=== PATIENT | male | born 1930 | race Hispanic/Latino ===

== ENCOUNTER → 2017-06-14 | Outpatient (CLI) | payer OTHER ==
[2017-06-14 15:50] LABS: ANION GAP 103.9 mmol/L (8-16); CREATININE, SERUM 1.51 mg/dL (0.72-1.25); POTASSIUM 3.9 mmol/L (3.5-5.1)
[2017-06-14 15:57] LABS: BASOPHILS % 0.5 % (0.0-1.0); EOSINOPHILS # (AUTO) 0.3 (0.0-0.4); EOSINOPHILS % 6.2 % (0.0-6.0); HEMATOCRIT 22.6 % (38.2-49.6); LYMPHOCYTES # (AUTO) 1.6 (1.0-3.2); LYMPHOCYTES % 39.1 % (18.0-39.1); MEAN CORPUSCULAR HEMOGLOBIN 29.6 pg (28-32); MEAN CORPUSCULAR HGB CONC 30.5 g/dL (31-35); MONOCYTES # (AUTO) 0.4 (0.2-0.8); MONOCYTES % 8.6 % (4.4-11.3); NEUTROPHILS # (AUTO) 1.9 (2.1-6.9); NEUTROPHILS % 45.4 % (38.7-80.0); PLATELET COUNT 111 x10e3/uL (140-360); RED BLOOD COUNT 2.33 x10e6/uL (4.3-5.7); RED CELL DISTRIBUTION WIDTH 17.9 % (11.7-14.4)
[2017-06-14 16:06] LABS: CALCIUM 5.4 mg/dL (8.4-10.2)
[2017-06-14 16:08] LABS: HEMOGLOBIN 6.9 g/dL (14.0-18.0)
== END ==
LOC: NPA 10:00
PROVIDERS: ATTEND Internal Medicine Pulmonary Disease
DX: Z02.89 Encounter for other administrative examinations (principal)
CPT/HCPCS: 36415; 80048; 85025

== ENCOUNTER → 2017-06-27 | Outpatient (CLI) | payer OTHER ==
[2017-06-27 17:26] LABS: BASOPHILS % 0.4 % (0.0-1.0); EOSINOPHILS # (AUTO) 0.4 (0.0-0.4); HEMATOCRIT 32.9 % (38.2-49.6); HEMOGLOBIN 10.9 g/dL (14.0-18.0); LYMPHOCYTES # (AUTO) 0.8 (1.0-3.2); MEAN CORPUSCULAR HEMOGLOBIN 29.7 pg (28-32); MEAN CORPUSCULAR HGB CONC 33.1 g/dL (31-35); MEAN CORPUSCULAR VOLUME 89.6 fL (81-99); MONOCYTES # (AUTO) 0.3 (0.2-0.8); MONOCYTES % 6.3 % (4.4-11.3); NEUTROPHILS # (AUTO) 3.9 (2.1-6.9); NEUTROPHILS % 71.7 % (38.7-80.0); PLATELET COUNT 271 x10e3/uL (140-360); RED BLOOD COUNT 3.67 x10e6/uL (4.3-5.7); RED CELL DISTRIBUTION WIDTH 13.5 % (11.7-14.4)
[2017-06-27 17:36] LABS: ANION GAP 13.1 mmol/L (8-16); BLOOD UREA NITROGEN 19 mg/dL (7-26); BUN/CREATININE RATIO 26 (6-25); CALCIUM 8.8 mg/dL (8.4-10.2); CARBON DIOXIDE 26 mmol/L (22-29); CHLORIDE 104 mmol/L (98-107); CREATININE, SERUM 0.74 mg/dL (0.72-1.25); EST GLOMERULAR FILTRATION RATE > 60 ML/MIN (60-); GLUCOSE 100 mg/dL (74-118); POTASSIUM 3.1 mmol/L (3.5-5.1); SODIUM 140 mmol/L (136-145)
== END ==
LOC: NPA 11:30
PROVIDERS: ATTEND Internal Medicine Pulmonary Disease
DX: Z02.89 Encounter for other administrative examinations (principal)
CPT/HCPCS: 36415; 80048; 85025

== ENCOUNTER → 2017-06-29 | Outpatient (CLI) | payer OTHER ==
[2017-06-29 16:22] LABS: BILIRUBIN,URINE NEGATIVE (NEGATIVE); CLARITY,URINE CLOUDY (CLEAR); COLOR,URINE YELLOW (YELLOW); KETONES,URINE NEGATIVE (NEGATIVE); LEUKOCYTE ESTERASE ,URINE TRACE (NEGATIVE); NITRITE,URINE NEGATIVE (NEGATIVE); PROTEIN,URINE DIPSTICK 1+ (NEGATIVE); URINE UROBILINOGEN 0.2 mg/dL (0.2 - 1)
[2017-06-29 16:23] LABS: AMORPHOUS SEDIMENT,URINE MODERATE (FEW); EPITHELIAL CELLS,URINE RARE /LPF; RBC,URINE 0-5 /HPF (0-5); URIC ACID CRYSTALS,URINE FEW (FEW); WBC,URINE (MAN) 0-5 /HPF (0-5)
== END ==
LOC: NPA 14:55
PROVIDERS: ATTEND Internal Medicine Pulmonary Disease
DX: Z02.89 Encounter for other administrative examinations (principal)
CPT/HCPCS: 81001; 87086

== ENCOUNTER → 2017-06-30 | Outpatient (CLI) | payer OTHER ==
[2017-06-30 17:26] LABS: ANION GAP 13.1 mmol/L (8-16); BLOOD UREA NITROGEN 14 mg/dL (7-26); BUN/CREATININE RATIO 19 (6-25); CALCIUM 8.9 mg/dL (8.4-10.2); CARBON DIOXIDE 29 mmol/L (22-29); CHLORIDE 98 mmol/L (98-107); CREATININE, SERUM 0.73 mg/dL (0.72-1.25); EST GLOMERULAR FILTRATION RATE > 60 ML/MIN (60-); GLUCOSE 121 mg/dL (74-118); POTASSIUM 4.1 mmol/L (3.5-5.1); SODIUM 136 mmol/L (136-145)
== END ==
LOC: NPA 11:30
PROVIDERS: ATTEND Internal Medicine Pulmonary Disease
DX: Z02.89 Encounter for other administrative examinations (principal)
CPT/HCPCS: 36415; 80048

== ENCOUNTER → 2017-09-28 | Outpatient (CLI) | payer MEDICARE ==
--- NOTE | 2017-09-28 12:32 | Diagnostic Imaging Report ---
Examination: Brain MRI without Contrast History: Memory loss. Comparison studies: None. Technique: Precontrast: Hi resolution Sag T1 with coronal and axial reformats. Axial DWI, T2, T2 flair, gradient echo or SWI Intravenous contrast: None. Findings: Structural lesions: No intra-or extra-axial masses. No hematomas. Atrophy: General: Mild bifrontal and biparietal volume loss. Focal: Severe volume loss of the bilateral hippocampi. No mesencephalic, pontine, or cerebellar atrophy. Henderson matter: Cortex:No signal abnormalities. No encephalomalacia. Basal ganglia: No atrophy or signal abnormalities. Thalami: No signal abnormalities. Micro hemorrhages: None. White matter signal intensity: There are confluent areas of T2/FLAIR hyperintensity in the periventricular and subcortical white matter, nonspecific. Subarachnoid spaces: No signal abnormalities. Ventricles: Normal in size and configuration. No hydrocephalus. Hippocampi, fornix and mammillary bodies: Normal in size and symmetric fornices. Mild volume loss of the mammillary bodies. Other: Skull: No bone marrow abnormalities. Vessels: Expected flow voids present in the major arteries and dural sinuses.. Sella: Normal in size. No intra-or suprasellar abnormalities. Cranio-cervical junction: No abnormalities. Patent foramen magnum. No Chiari one malformation. Paranasal sinuses: No T2 hyperintense mucosal thickening. Orbits: Bilateral slitlike lenses. IMPRESSION: 1. 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 2. Mild chronic microvascular ischemic change. Signed by: Dr. Delia Hatch M.D. on 09/28/2017 12:29 PM
== END ==
LOC: MRI 10:04
PROVIDERS: ATTEND Emergency Medicine
DX: R41.3 Other amnesia (principal)
CPT/HCPCS: 70551

== ENCOUNTER 2018-06-20 09:59 | Inpatient (IN) | payer MEDICARE ==
[~2018-06-20] VITALS: Ht 149.9 cm; Wt 59.2 kg
--- OUTSIDE RECORDS SUMMARY | 2018-06-20 10:03 | XMS REPORT ---
Author Author [facility] Organization [facility] Address Unknown Phone Unavailable Care Team Providers Care Rn School Name Role Phone JOSIE VAZQUEZ Unavailable Unavailable Payers Payer Name Policy Type Policy Number Effective Date Expiration Date Problems This patient has no known problems. Allergies, Adverse Reactions, Alerts Allergy Name Allergy Type Status Severity Reaction(s) Onset Date Inactive Date Treating Clinician Comments No Known Allergies DA Active U 2018-05-17 00:00:00 No Known Allergies DA Active U 2017-12-12 00:00:00 Medications This patient has no known medications. Results Test Description Test Time Test Comments Text Results Atomic Results Result Comments MRI BRAIN WO [place] [address] Patient Name: ILIR LAWRENCE MR #: [id number] : 1930 Age/Sex: 87/M Req #: [id number] Adm Physician: Ordered by: JOSIE VAZQUEZ MD Report #: [id number] Location: MRI Room/Bed: Procedure: [id number] MRI/MRI BRAIN WO Exam Date: Exam Time: REPORT STATUS: Signed Examination: Brain MRI without Contrast History: Memory loss. Comparison studies: None. Technique: Precontrast: Hi resolution Sag T1 with coronal and axial reformats. Axial DWI, T2, T2 flair, gradient echo or SWI Intravenous contrast: None. Findings: Structural lesions: No intra-or extra- axial masses. No hematomas. Atrophy: General: Mild bifrontal and biparietal volume loss. Focal: Severe volume loss of the bilateral hippocampi. No mesencephalic, pontine, or cerebellar atrophy. Henderson matter: Cortex:No signal abnormalities. No encephalomalacia. Basal ganglia: No atrophy or signal abnormalities. Thalami: No signal abnormalities. Micro hemorrhages: None. White matter signal intensity: There are confluent areas of T2/FLAIR hyperintensity in the periventricular and subcortical white matter, nonspecific. Subarachnoid spaces: No signal abnormalities. Ventricles: Normal in size and configuration. No hydrocephalus. Hippocampi, fornix and mammillary bodies: Normal in size and symmetric fornices. Mild volume loss of the mammillary bodies. Other: Skull: No bone marrow abnormalities. Vessels: Expected flow voids present in the major arteries and dural sinuses.. Sella: Normal in size. No intra-or suprasellar abnormalities. Cranio-cervical junction: No abnormalities. Patent foramen magnum. No Chiari one malformation. Paranasal sinuses: No T2 hyperintense mucosal thickening. Orbits: Bilateral slitlike lenses. IMPRESSION: 1. 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 2. Mild chronic microvascular ischemic change. Signed by: Dr. Delia Hatch M.D. on 09/28/2017 12:29 PM Dictated By: DELIA DESIR MD [id number] Transcribed By: ARTURO on 09/28/17 1229 COPY TO: JOSIE VAZQUEZ MD
--- OUTSIDE RECORDS SUMMARY | 2018-06-20 10:03 | XMS REPORT | Clinical Summary ---
Author Author [facility] Address Unknown Phone Unavailable Care Team Providers Care General Road Production Manager Name Role Phone Long Mccoy MD PCP Allergies No Known Allergies Medications End Date Status Medication Sig Dispensed Refills Start Date Active metFORMIN (GLUCOPHAGE) Take 500 mg 0 500 mg tablet by mouth 2 (two) times a day with meals. Active lisinopril Take 10 mg by 0 (PRINIVIL,ZESTRIL) 10 mg mouth daily. tablet Active traMADol (ULTRAM) 50 mg TK ONE T PO Q 0 tablet 8 H PRN P WF 8 Active Problems No known active problems Encounters Care Team Description Date Type Specialty Mary Lombardi MD Bilateral hearing loss due to cerumen impaction (Primary Dx); Dementia without behavioral disturbance, unspecified dementia type 09/26/2017 Office Visit Otolaryngology after 06/19/2017 Social History Date Tobacco Use Types Packs/Day Years Used Never Smoker Smokeless Tobacco: Never Used Alcohol Use Drinks/Week oz/Week Comments No Sex Assigned at Date Recorded Not on file Industry Job Start Date Occupation Not on file Not on file Not on file Travel End Travel History Travel Start No recent travel history available. Last Filed Vital Signs Time Taken Vital Sign Reading - Blood Pressure - - Pulse - - Temperature - - Respiratory Rate - - Oxygen Saturation - - Inhaled Oxygen - Concentration 09/26/2017 8:57 AM CDT Weight 59 kg (130 lb) 09/26/2017 8:57 AM CDT Height 149.9 cm (4' 11") 09/26/2017 8:57 AM CDT Body Mass Index 26.26 Plan of Treatment Health Maintenance Due Date Last Done Comments SHINGLES VACCINES (1 of 1980 2) PNEUMOCOCCAL 09/14/1995 POLYSACCHARIDE VACCINE AGE 65 AND OVER PNEUMOCOCCAL-13 09/14/1995 INFLUENZA VACCINE 12/21/2017 Results Not on fileafter 06/19/2017 Insurance Payer Benefit Subscriber ID Type Phone Address Plan / Group [facility] MEDICARE AARP xxxxxxxxx O MEDICARE COMPLETE MCR Advance Directives Patient has advance care planning documents on file. For more information, travis crawford contact: Donald Huynh [address] [place] [address]
[2018-06-20 11:00] LABS: BASOPHILS # (AUTO) 0.1 (0.0-0.1); BASOPHILS % 0.5 % (0.0-1.0); EOSINOPHILS # (AUTO) 0.3 (0.0-0.4); EOSINOPHILS % 2.3 % (0.0-6.0); HEMATOCRIT 34.3 % (38.2-49.6); HEMOGLOBIN 10.8 g/dL (14.0-18.0); LYMPHOCYTES # (AUTO) 1.9 (1.0-3.2); LYMPHOCYTES % 15.6 % (18.0-39.1); MEAN CORPUSCULAR HEMOGLOBIN 29.7 pg (28-32); MEAN CORPUSCULAR HGB CONC 31.5 g/dL (31-35); MEAN CORPUSCULAR VOLUME 94.2 fL (81-99); MONOCYTES # (AUTO) 0.9 (0.2-0.8); MONOCYTES % 7.2 % (4.4-11.3); NEUTROPHILS # (AUTO) 8.8 (2.1-6.9); NEUTROPHILS % 73.9 % (38.7-80.0); PLATELET COUNT 336 x10e3/uL (140-360); RED BLOOD COUNT 3.64 x10e6/uL (4.3-5.7); RED CELL DISTRIBUTION WIDTH 13.3 % (11.7-14.4)
[2018-06-20 11:11] LABS: INR 0.95; PROTHROMBIN TIME 13.6 seconds (11.9-14.5)
[2018-06-20 11:12] LABS: PARTIAL THROMBOPLASTIN TIME 32.4 seconds (23.8-35.5)
[2018-06-20 11:23] LABS: ALANINE AMINOTRANSFERASE 14 IU/L (0-55); ALBUMIN 3.4 g/dL (3.5-5.0); ALBUMIN/GLOBULIN RATIO 0.9 (0.8-2.0); ALKALINE PHOSPHATASE 180 IU/L (40-150); BLOOD UREA NITROGEN 20 mg/dL (7-26); BUN/CREATININE RATIO 23 (6-25); CALCIUM 9.8 mg/dL (8.4-10.2); CARBON DIOXIDE 23 mmol/L (22-29); CHLORIDE 102 mmol/L (98-107); CREATINE KINASE 48 IU/L (30-200); CREATININE, SERUM 0.87 mg/dL (0.72-1.25); EST GLOMERULAR FILTRATION RATE > 60 ML/MIN (60-); GLUCOSE 106 mg/dL (74-118); MAGNESIUM 1.7 MG/DL (1.3-2.1); SODIUM 139 mmol/L (136-145)
[2018-06-20 11:36] LABS: STREPTOCOCCUS GRP A ANTIGEN NEGATIVE (NEGATIVE)
[2018-06-20 11:45] LABS: INFLUENZAE A&B ANTIGEN (RAPID) NEGATIVE (NEGATIVE)
[2018-06-20] MEDS ORDERED: VANCOMYCIN 1GM/NS 250 ML 250 ML IV ONE (11:45)
[2018-06-20 11:47] LABS: CLARITY,URINE CLEAR (CLEAR); COLOR,URINE YELLOW (YELLOW)
--- NOTE | 2018-06-20 11:47 | Diagnostic Imaging Report ---
EXAMINATION: CHEST SINGLE (PORTABLE) INDICATION: Cough. COMPARISON: None FINDINGS: TUBES and LINES: None. LUNGS: Lungs are not well inflated. Low lung volumes which decreases sensitivity and specificity for pathology. Mild perihilar and interstitial opacities on the right. Patchy opacities at the right lung base. PLEURA: No pleural effusion or pneumothorax. Mild nonspecific elevation of the right hemidiaphragm. HEART AND MEDIASTINUM: The cardiomediastinal silhouette is unremarkable. Atherosclerotic calcifications of the aortic arch. BONES AND SOFT TISSUES: No acute bony findings. Extensive degenerative changes of bilateral shoulders, partially visualized. Superior subluxation of the bilateral humeral heads in relation to the glenoids could reflect rotator cuff pathology. UPPER ABDOMEN: No free air under the diaphragm. Air-filled colonic loops are noted. IMPRESSION: Low lung volumes, cannot exclude mild pulmonary interstitial edema. Patchy opacities at the right lung base could represent atelectasis or pneumonia in the appropriate clinical setting. Mild nonspecific elevation of the right hemidiaphragm. Air filled colonic loops in the abdomen, KUB may be considered for further evaluation. Signed by: Dr. Rajat Chatterjee MD on 06/20/2018 11:44 AM
[2018-06-20 11:48] LABS: BILIRUBIN,URINE NEGATIVE (NEGATIVE); KETONES,URINE NEGATIVE (NEGATIVE); LEUKOCYTE ESTERASE ,URINE NEGATIVE (NEGATIVE); NITRITE,URINE NEGATIVE (NEGATIVE); PROTEIN,URINE DIPSTICK NEGATIVE (NEGATIVE); URINE UROBILINOGEN 0.2 mg/dL (0.2 - 1)
[2018-06-20 12:00] LABS: BACTERIA,URINE RARE /HPF; EPITHELIAL CELLS,URINE RARE /LPF
--- NOTE | 2018-06-20 12:11 | Diagnostic Imaging Report ---
LEFT FOOT - 3 Images HISTORY: Second toe, diabetic foot ulcer COMPARISON: None available. FINDINGS: Sensitivity limited by portable technique. Bones: No acute displaced fracture. No aggressive osseous lesion. Small plantar calcaneal and dorsal calcaneal enthesophytes. Joints: Mild scattered degenerative changes. Soft tissues: Nonspecific soft tissue swelling, most notably the great toe and second toe, a small focus of air projects at the interspace between the toes, correlate for the site of the reported ulcer IMPRESSION: No radiographic evidence of osteomyelitis. Signed by: Dr. Shelton Stapleton D.O., M.M.M. on 06/20/2018 12:06 PM
[2018-06-20] MEDS: PIPER-TAZ 3.375 GM 50 ML IV SCH ×3 (12:16→23:48)
--- NOTE | 2018-06-20 12:19 | NUR ---
RT notified of ordered breathing treatment
[2018-06-20] MEDS ORDERED: ALBUTEROL/IPRATROPIUM 3 ML NEB NEB ONE (12:30)
[2018-06-20] MEDS ORDERED: DEXTROSE 50% SYRINGE 50 ML IV PRN (12:45)
[2018-06-20] MEDS: ALBUTEROL SULF 0.083% NEB SOLN 3 ML NEB NEB SCH ×3 (12:45→20:00)
[2018-06-20] MEDS ORDERED: AZITHROMYCIN 500MG/NS 250 ML 250 ML IV SCH (12:45)
[2018-06-20] MEDS: IPRATROPIUM BROMIDE 0.02% 2.5 ML NEB NEB SCH ×2 (13:00→20:00)
--- OUTSIDE RECORDS SUMMARY | 2018-06-20 13:01 | XMS REPORT | Clinical Summary ---
Author Author [facility] Organization [facility] Address Unknown Phone Unavailable Care Team Providers Care Rn Telehealth Name Role Phone Long Mccoy MD PCP [...] ID Type Phone Address Plan / Group [facility] MEDICARE AARP xxxxxxxxx O MEDICARE COMPLETE MCR Advance Directives Patient has advance care planning documents on file. For more information, travis crawford contact: Donald Huynh [address] [place] [address]
[2018-06-20] MEDS: SODIUM CHLORIDE 0.9% 1000ML 1,000 ML IV SCH (13:12)
[2018-06-20] MEDS: AZITHROMYCIN 500MG/NS 250 ML 250 ML IV SCH (14:57)
--- NOTE | 2018-06-20 15:03 | NUR ---
Patient noted to have large BM. No brief applied and patient repositioned. Will continue to monitor patient. Addendum: 06/20/18 at 1503 by ELLY New brief applied*
[2018-06-20] MEDS: INSULIN LISPRO 100 UNIT/1 ML 3ML VIAL SQ SCH ×2 (16:31→21:30)
--- NOTE | 2018-06-20 17:41 | Consultation ---
DATE OF CONSULTATION: June 20, 2018 CHIEF COMPLAINT: Pain with erythema, left foot. HISTORY OF PRESENT ILLNESS: Mr. Mcduffie is a pleasant 87-year-old male, presented to the ED secondary to pain, discomfort, erythema associated to his left foot, particularly the second toe, with erythema progressing proximally. Recently was discharged from nursing facility. Unfortunately he has developed this problem and presented to the ED for evaluation and recommendations. PAST MEDICAL HISTORY: Hypertension, diabetes, hyperlipidemia, CHF, UTI, dementia, anemia, and CKD. FAMILY HISTORY: Noncontributory. SOCIAL HISTORY: Previous tobacco use. No recent alcohol use. No history of drug abuse. REVIEW OF SYSTEMS: Eleven-point review of systems negative with the exception of nonproductive cough and pain associated to his left foot. PHYSICAL EXAM GENERAL: AAO x2, NAD. HEENT: Normocephalic, atraumatic. Anicteric. ABDOMEN: Soft, nontender, nondistended. RESPIRATORY: Symmetrical expansion. No distress. PSYCHIATRIC: Normal affect. EXTREMITIES: There is indeed erythema associated to the left foot, particularly dorsum of the same midfoot and forefoot, with what appears to be an ischemic-like lesion to the second digit of the same dorsally along the interphalangeal joint area of the proximal interphalangeal joint area. No active drainage. No soft tissue crepitus. There is tenderness upon palpation, however. Laboratory findings are pending, x-rays as well. ASSESSMENT: Diabetic patient with what appears to be peripheral arterial disease or ischemic-like changes to the foot, underlying cellulitis as well. PLAN: Recommend vascular workup. Local wound care for the time being and continue antibiotics. Further recommendations to follow, particularly post arterial Dopplers, which will be ordered. Job#: [id number] ANJU
--- NOTE | 2018-06-20 18:30 | NUR ---
PATIENT ARRIVED TO ROOM 208 FROM ER AT THIS TIME. HE IS IN STABLE CONDITION. PATIENT AND FAMILY ORIENTED TO ROOM AND POLICIES. CALL LIGHT WITHIN REACH. BED IN THE LOWEST POSITION. WILL CONTINUE TO MONITOR.
[2018-06-20 18:41] LABS: CREATINE KINASE 40 IU/L (30-200)
--- NOTE | 2018-06-20 19:03 | NUR ---
REPORT GIVEN TO ONCOMING NURSE. PATIENT IS IN STABLE CONDITION. FAMILY AT BEDSIDE. CALL LIGHT WITHIN REACH. BED IN THE LOWEST POSITION.
--- NOTE | 2018-06-20 19:30 | NUR ---
patient received. Patient is resting in bed. Resp even and unlabored. No acute distress noted. Patient denies of any pain or discomfort. family at bed time. call light within reach. instruct to call for assistance. bed alarm on. bed low/locked. continue to monitor closely
[2018-06-20 20:00] VITALS: BP 142/65
[2018-06-20] MEDS ORDERED: VANCOMYCIN 750MG/NS 150ML IVPB 150 ML IV SCH (23:00)
[2018-06-21] VITALS (7 sets, daily range): BP systolic 97–163; BP diastolic 52–97
[2018-06-21] MEDS: ALBUTEROL SULF 0.083% NEB SOLN 3 ML NEB NEB SCH ×7 (00:15→23:12)
[2018-06-21] MEDS: IPRATROPIUM BROMIDE 0.02% 2.5 ML NEB NEB SCH ×5 (00:15→23:12)
[2018-06-21] MEDS: SODIUM CHLORIDE 0.9% 1000ML 1,000 ML IV SCH ×2 (02:15→15:16)
[2018-06-21] MEDS: PIPER-TAZ 3.375 GM 50 ML IV SCH ×3 (05:29→17:31)
--- NOTE | 2018-06-21 06:15 | NUR ---
DR Cao said ok to d/c continuously pulse ox
[2018-06-21] MEDS: VANCOMYCIN 750MG/NS 150ML IVPB 150 ML IV SCH ×2 (06:36→18:00)
[2018-06-21 06:39] LABS: BASOPHILS % 0.4 % (0.0-1.0); EOSINOPHILS # (AUTO) 0.1 (0.0-0.4); EOSINOPHILS % 0.7 % (0.0-6.0); HEMATOCRIT 29.3 % (38.2-49.6); HEMOGLOBIN 9.4 g/dL (14.0-18.0); LYMPHOCYTES # (AUTO) 1.4 (1.0-3.2); LYMPHOCYTES % 12.6 % (18.0-39.1); MEAN CORPUSCULAR HEMOGLOBIN 29.6 pg (28-32); MEAN CORPUSCULAR HGB CONC 32.1 g/dL (31-35); MEAN CORPUSCULAR VOLUME 92.1 fL (81-99); MONOCYTES # (AUTO) 0.7 (0.2-0.8); MONOCYTES % 6.4 % (4.4-11.3); NEUTROPHILS # (AUTO) 8.8 (2.1-6.9); NEUTROPHILS % 79.4 % (38.7-80.0); PLATELET COUNT 311 x10e3/uL (140-360); RED BLOOD COUNT 3.18 x10e6/uL (4.3-5.7); RED CELL DISTRIBUTION WIDTH 13.2 % (11.7-14.4)
[2018-06-21 06:49] LABS: CREATINE KINASE 51 IU/L (30-200)
--- NOTE | 2018-06-21 07:05 | NUR ---
RCD PT AT BED PT IS ALERT AND ORIENTED ASSESSMENT DONE IV PATENT FAMILY AT BED SIDE BED LOW AND LOCKED CALL LIGHT IN REACH
[2018-06-21 07:28] LABS: ALANINE AMINOTRANSFERASE 13 IU/L (0-55); ALBUMIN 2.8 g/dL (3.5-5.0); ALBUMIN/GLOBULIN RATIO 0.8 (0.8-2.0); ALKALINE PHOSPHATASE 140 IU/L (40-150); ANION GAP 15.2 mmol/L (8-16); BLOOD UREA NITROGEN 17 mg/dL (7-26); BUN/CREATININE RATIO 20 (6-25); CALCIUM 8.7 mg/dL (8.4-10.2); CARBON DIOXIDE 22 mmol/L (22-29); CHLORIDE 103 mmol/L (98-107); CREATININE, SERUM 0.84 mg/dL (0.72-1.25); EST GLOMERULAR FILTRATION RATE > 60 ML/MIN (60-); GLUCOSE 64 mg/dL (74-118); POTASSIUM 3.2 mmol/L (3.5-5.1); SODIUM 137 mmol/L (136-145)
[2018-06-21] MEDS: INSULIN LISPRO 100 UNIT/1 ML 3ML VIAL SQ SCH ×4 (07:30→20:54)
[2018-06-21] MEDS: AZITHROMYCIN 500MG/NS 250 ML 250 ML IV SCH (09:00)
[2018-06-21] MEDS: DOCUSATE SODIUM 100 MG CAP PO SCH (09:00)
[2018-06-21] MEDS: SENNOSIDES 8.6 MG TAB PO SCH ×2 (09:00→16:57)
[2018-06-21] MEDS: ASPIRIN 81 MG CHEW TAB PO SCH (09:30)
[2018-06-21] MEDS ORDERED: ATORVASTATIN 20 MG TAB PO SCH (09:30)
[2018-06-21] MEDS: ATORVASTATIN 40 MG TAB PO SCH (10:00)
--- NOTE | 2018-06-21 10:04 | NUR ---
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 PMH: dementia, HTN, HLD, constipation, DM2, BPH, recurrent falls, FTT, EULALIA, dehydration, cervical spine ds s/p laminectomy, DM-neuropathy, constipation, left foot 2nd toe cellulitis, UTI, physical deconditioing. PShx: C4-C7 laminectomy, back, B/L knee Allergies; see emr Fh/SH; no illicits; family present and involved in care; ; no cigs/illicits/etoh MEd;s see MAR ROS: unreliable V/S: rev'd PE: Tired appearing HEET: Pupils round, equal, and reactive to light and accommodation Neck: normal neck supple Chest Lungs sound present on auscultation, decreased at the base, no rales, rhonchi, wheezing Cardiovascular: S1, S2, Abdomen: bowel sound presents x4q, abdomen soft, non-distended Extremities: MCBRIDE, left foot 2nd toe erythema/tenderness and between 1st/2nd toes Skin: Skin warm and dry to touch Neuro: AAOx2 labs/meds; revd A/P: A/P: 87yoM LEft foot 2nd toe infection- r/o osteomyelitis; vasc w-up; abx; sed rate; Left foot 2nd toe DFU Physical deconditioning Malaise/Fatigue - PT DM2- lipid/hba1c HTN meds HLD statin Dementia Memantine Constipation bowel regimen Severe cervical DDD PT Diastolic CHF chr - monitor Urinary retention - Flomax Prop: Pepcid/Heparin Dispo d/w daughter at bedside; MRI to r/o osteomyelitis; cardiovasc consult for vasc w-up. Joaquin Cao MD,PhD.
--- NOTE | 2018-06-21 10:17 | NUR ---
PAGED AND NOTIFIED DR YUNG POTASSIUM LEVEL AND PAIN MEDS
--- NOTE | 2018-06-21 10:18 | NUR ---
ADDENDUM: to H&P Right HAP- on zosyn/vanco and azithromycin. Joaquin Cao MD, PhD.
[2018-06-21] MEDS: ACETAMINOPHEN/CODEINE 300MG - 30MG TAB PO PRN ×2 (10:20→15:11)
[2018-06-21] MEDS ORDERED: POTASSIUM CHLORIDE 20 MEQ TAB CR PO ONE (10:45)
[2018-06-21] MEDS ORDERED: FLOMAX0.4 MG PO (13:30)
[2018-06-21] MEDS ORDERED: ULTRAM50 MG PO (13:30)
[2018-06-21] MEDS ORDERED: DIOVAN160 MG PO (13:30)
[2018-06-21] MEDS ORDERED: TYLENOL325 MG PO (13:30)
[2018-06-21] MEDS ORDERED: TRAZODONE HCL50 MG PO (13:30)
[2018-06-21] MEDS ORDERED: NAMENDA10 MG (13:30)
[2018-06-21] MEDS ORDERED: RISPERIDONE0.5 MG PO (13:30)
[2018-06-21] MEDS ORDERED: SODIUM CHLORIDE1 GM PO (13:30)
[2018-06-21] MEDS ORDERED: FAMOTIDINE20 MG PO (13:30)
--- NOTE | 2018-06-21 13:46 | Consultation ---
DATE OF CONSULTATION: June 21, 2018 CARDIOLOGY CONSULTATION REFERRING PHYSICIAN: Dr. Joaquin Cao. REASON FOR CONSULTATION: Peripheral vascular disease. HISTORY OF PRESENT ILLNESS: Mr. Mcduffie is an 87-year-old man with dementia, diabetes mellitus type 2, hypertension and dyslipidemia, who presents to [facility] for a nonhealing left __2nd toe wound. He is found to have abnormal pedal pulses. Antibiotics have been initiated and Podiatry consulted. He denies any complaints. However, he is confused in relationship to his dementia. REVIEW OF SYSTEMS: A 12-system review negative and limited by memory status. PAST MEDICAL HISTORY: Per chart review. Diabetes, hypertension, dyslipidemia, and some reports of CKD and chronic heart failure unspecified on chart, as well as anemia. However, his creatinine is 0.84 today. He is anemic at 9.4. SOCIAL HISTORY: Negative x3. FAMILY HISTORY: Noncontributory. PHYSICAL EXAMINATION VITAL SIGNS: Temperature 98.7, heart rate 90, blood pressure 140/75, respiratory rate 19, O2 sat 98%. BMI 28.2. GENERAL: No acute distress. Pleasantly confused. NECK: No JVD. No carotid bruits. CARDIOVASCULAR: Regular rate and rhythm. Normal S1 and S2. No S3 or S4. Systolic ejection murmur 1/6. ABDOMEN: Soft and nontender. EXTREMITIES: No edema. Nonpalpable dorsalis pedis and posterior tibial pulses. However, warm extremities. Has left toe ulceration with black discoloration surrounding. CARDIOVASCULAR MEDICATIONS: Reviewed. 1. Vancomycin and Zosyn antibiotics. 2. Lovenox 40 mg subcutaneous daily. STUDIES: Reviewed. Sodium 137, potassium 3.2, chloride 103, bicarbonate 22, BUN 17, creatinine 0.84, glucose 64. White blood cells 11, hemoglobin 9.4, platelets 311. INR 0.95. AST 11, ALT 13, alk phos 140. ASSESSMENT: Suspected peripheral vascular disease by clinical grounds in a patient with diabetes mellitus, hypertension, dyslipidemia and a nonhealing wound to left __1st toe in the setting of dementia and behavioral disturbances. RECOMMENDATIONS: Arterial Doppler was ordered to better assess level of disease. Will likely warrant angiography. Creatinine currently at 0.8. He is anemic. Anemia workup is advised. Initiate aspirin low-dose 81 mg daily and monitor for any signs of overt bleeding. Start statin and have initiated discussions with patient and the family members regarding possible angiography and intervention later this week. Patient is tentatively posted for Tuesday a.m. Job#: [id number] GUEVARA
[2018-06-21] MEDS: ENOXAPARIN SOD INJ 40 MG/0.4 ML SYR SC SCH (16:57)
--- NOTE | 2018-06-21 19:00 | NUR ---
PT RESTING ON BED BED SIDE REPORT GIVEN TO ONCOMING NURSE
[2018-06-22] VITALS (10 sets, daily range): BP systolic 114–146; BP diastolic 56–69
[2018-06-22] MEDS: PIPER-TAZ 3.375 GM 50 ML IV SCH ×4 (00:18→18:00)
[2018-06-22] MEDS: ALBUTEROL SULF 0.083% NEB SOLN 3 ML NEB NEB SCH ×6 (02:50→23:25)
[2018-06-22] MEDS: SODIUM CHLORIDE 0.9% 1000ML 1,000 ML IV SCH (05:35)
[2018-06-22] MEDS: VANCOMYCIN 750MG/NS 150ML IVPB 150 ML IV SCH ×2 (06:27→18:00)
[2018-06-22] MEDS: IPRATROPIUM BROMIDE 0.02% 2.5 ML NEB NEB SCH ×3 (07:00→19:15)
--- NOTE | 2018-06-22 07:00 | NUR ---
RCD PT AT BED PT IS ALERT AND CONFUSED ASSESSMENT DONE IV PATENT PT RESTING ON BED NO SIGNS OF ANY DISTRESS NOTED FAMILY AT BED SIDE BED LOW AND LOCKED CALL LIGHT IN REACH
--- NOTE | 2018-06-22 07:11 | NUR ---
REPORT GIVEN TO ONCOMING NURSE,WALKING ROUNDS MADE.PT RESTING IN BED WITH NO S/S OF DISTRESS.
[2018-06-22] MEDS: INSULIN LISPRO 100 UNIT/1 ML 3ML VIAL SQ SCH ×4 (07:30→21:00)
[2018-06-22] MEDS: SENNOSIDES 8.6 MG TAB PO SCH ×2 (09:00→17:00)
[2018-06-22] MEDS: AZITHROMYCIN 500MG/NS 250 ML 250 ML IV SCH (09:00)
[2018-06-22] MEDS: ASPIRIN 81 MG CHEW TAB PO SCH (09:00)
[2018-06-22] MEDS: DOCUSATE SODIUM 100 MG CAP PO SCH (09:00)
[2018-06-22] MEDS: ATORVASTATIN 40 MG TAB PO SCH (09:00)
[2018-06-22] MEDS: RISPERIDONE 0.5 MG TAB PO SCH (10:15)
[2018-06-22] MEDS: TRAMADOL HCL 50 MG TAB PO SCH (10:15)
[2018-06-22] MEDS: MEMANTINE 10 MG TAB PO SCH (10:15)
[2018-06-22] MEDS: FAMOTIDINE 20 MG TAB PO SCH (11:00)
--- NOTE | 2018-06-22 11:18 | NUR ---
WOUND CARE CONSULTATION - INITIAL EVALUATION Patient admitted from [facility] with UTI and Cellulitis of Left Foot 2nd Toe. - Dr. Sammy To DPM on case for foot wound management. -WBC10.03 -HGB9.4 -HCT29.3 -NEUT%29.4 -ALB2.8 -HbA1C - Results Pending -X-Ray- Left Foot - No evidence of OM -Lower Ext. US - Report Pending. - IV ABX - Vancomycin. - Rafael Score 11 - Max assist OOB to Wheel Chair - Full Assist to turn - Alternating Pressure Air Mattress - WC Consulted for Left Foot Wounds. Patient Visit: - Patient Thai speaking with son at bedside - Noted LLE with rubor more pronounced toward 2nd toe. Dorsal aspect of toe presents with annular ulcer with 100% necrosis. - Tender to touch. - Absent Pedal pulses - Foot Cool to touch - No hair growth bilateral legs. - Angiogram pending. - Left Gluteal - Healing/ Absorbing Blister 100% Closed and maturing. IMPRESSION: 1. Left Foot 5th Met Head - DTI w/PVD - Present On Admission(POA). 2. Left Foot Lateral Heel - DTI w/PVD - POA. 3. Left Foot 2nd Toe -US, w/PVD - POA. RECOMMENDATION: Conservative Treatment while establishing vascular status and allow area to demarcate post angiogram. 1. Left Foot 5th Met Head - DTI w/PVD - Present on Admission -[place] with Betadine and Wrap Foot with Bolstered 4x4 Gauze and Light Kerlix Wrap Daily. 2. Left Foot Lateral Heel - DTI w/PVD - POA -[place] with Betadine and Wrap Foot with Bolstered 4x4 Gauze and Light Kerlix Wrap Daily. 3. Left Foot 2nd Toe -US, w/PVD - POA -Betadine Moistened Gauze and Wrap Foot with Bolstered 4x4 Gauze and Light Kerlix Wrap Daily. 4. Left Gluteal - Blister/ Closed- POA - Wash Juwan Gluteals with Mild Soap and Water PRN Soiling. - Apply Calazime Cream BID and PRN Soiling. 5. Heel Protectors while in bed. 6. Continue Alternating Pressure Air Mattress. 7. Turn and Reposition every 2 Hours. 8. Sacral Area - Allevyn Foam Sacrum Daily 9. Wheel Chair Cushion when Out of Bed. Thank you for consulting with Wound Care. Addendum: 06/22/18 at 1134 by Fermin Mcfarlane RN Amended: Links added. Addendum: 06/22/18 at 1137 by Fermin Mcfarlane RN HX: dementia, HTN, HLD, constipation, DM2, BPH, recurrent falls, FTT, EULALIA, dehydration, laminectomy, constipation, left foot 2nd toe cellulitis, UTI, physical deconditioning.
--- NOTE | 2018-06-22 12:00 | NUR ---
ACCORDING TO MRI REQUEST PAGED AND NOTIFIED DR YUNG REGARDING PAIN MEDS FOR MRI GOT THE ORDER GIVE 20 MTS BEFORE THE PROCEDURE
[2018-06-22] MEDS ORDERED: HYDROMORPHONE 1MG/1ML INJ IV STA (12:29)
[2018-06-22] MEDS ORDERED: HYDROMORPHONE 2MG/ML 2 MG/ML ML IV ONE (12:45)
[2018-06-22] MEDS ORDERED: SODIUM CHLORIDE 0.9% 1000ML 1,000 ML IV SCH ×2 (15:41)
--- NOTE | 2018-06-22 16:08 | Progress Note ---
DATE: June 22, 2018 CARDIOLOGY PROGRESS NOTE SUBJECTIVE: No new complaints. Discussed angiography and possible intervention with the patient and family members. OBJECTIVE VITAL SIGNS: Temperature 97.4, heart rate 103, respiratory rate 19, blood pressure 134/59, O2 sat 95% on room air. GENERAL: In no acute distress. Alert. NECK: No JVD. CHEST: Clear to auscultation. CARDIOVASCULAR: Regular rate and rhythm. Normal S1 and S2. ABDOMEN: Soft, nontender. EXTREMITIES: No edema. Abnormal pedal pulses at dorsalis pedis with left 2nd toe ulceration and black discoloration of surrounding tissue. CARDIOVASCULAR MEDICATIONS: Reviewed. 1. Zosyn and vancomycin. 2. Atorvastatin 40 mg daily. 3. Aspirin 81 mg daily. 4. Azithromycin. 5. Lovenox 40 mg subcutaneous daily. STUDIES: Reviewed. White blood cells 11, hemoglobin 9.4, platelets 311. That is from 06/21. Glucose today 179. ASSESSMENT 1. Peripheral vascular disease suggested by Doppler ultrasound, concerning for femoral popliteal disease. 2. Diabetes mellitus. 3. Hypertension. 4. Dyslipidemia. 5. Nonhealing left 2nd toe wound/critical limb ischemia. 6. Dementia with behavioral disturbances. RECOMMENDATIONS 1. Agree with antibiotic. 2. Foot care per Podiatry. 3. Monitor renal function in the periprocedural period given prior reports of chronic kidney disease per electronic medical record. 4. Angiography and possible endovascular intervention scheduled for tomorrow. Indications, alternatives, risks and benefits discussed with patient and family members, who agree to proceed. Job#: [id number] GUEVARA
[2018-06-22] MEDS: ENOXAPARIN SOD INJ 40 MG/0.4 ML SYR SC SCH (17:00)
--- NOTE | 2018-06-22 17:00 | NUR ---
AFTER BED SIDE SWALLOW EVAL THEY RECOMMENDED NPO EXCEPT MEDS CRUSHED AND MIX WIT APPLE SAUCE AND MODIFIED BARIUM SWALLOW PAGED AND NOTIFIED DR YUNG GOT THE ORDERS
--- NOTE | 2018-06-22 17:30 | NUR ---
PT GOING FOR PROCEDURE ON TOMORROW CONSENT SIGNED NPO AFTER MIDNIGHT
[2018-06-22] MEDS: ACETAMINOPHEN/CODEINE 300MG - 30MG TAB PO PRN (18:20)
--- NOTE | 2018-06-22 19:13 | NUR ---
REPORT GIVEN TO ONCOMING NURSE,WALKING ROUNDS MADE.PT RESTING IN BED WITH NO S/S OF DISTRESS.
--- NOTE | 2018-06-22 23:56 | NUR ---
IM- Progress Note O/N; no events ROS: unreliable V/S: rev'd PE: Tired appearing HEET: Pupils round, equal, and reactive to light and accommodation Neck: normal neck supple Chest Lungs sound present on auscultation, decreased at the base, no rales, rhonchi, wheezing Cardiovascular: S1, S2, Abdomen: bowel sound presents x4q, abdomen soft, non-distended Extremities: MCBRIDE, left foot 2nd toe erythema/tenderness and between 1st/2nd toes Skin: Skin warm and dry to touch Neuro: AAOx2 labs/meds; revd A/P: A/P: 87yoM LEft foot 2nd toe infection- r/o osteomyelitis; vasc w-up; abx; sed rate; Left foot 2nd toe DFU Physical deconditioning Malaise/Fatigue - PT DM2- lipid/hba1c HTN meds HLD statin Dementia Memantine Constipation bowel regimen Severe cervical DDD PT Diastolic CHF chr - monitor Urinary retention - Flomax HAP right- zosyn/vanco Prop: Pepcid/Heparin Dispo d/w daughter at bedside; MRI to r/o osteomyelitis; cardiovasc consult for vasc w-up. 06/22 w-up anemia; angio pending; MRI pending; Joaquin Cao MD,PhD.
[2018-06-23] VITALS (7 sets, daily range): BP systolic 129–177; BP diastolic 65–81
[2018-06-23] MEDS: PIPER-TAZ 3.375 GM 50 ML IV SCH ×4 (00:30→17:27)
[2018-06-23] MEDS: IPRATROPIUM BROMIDE 0.02% 2.5 ML NEB NEB SCH ×4 (03:30→19:10)
[2018-06-23] MEDS: ALBUTEROL SULF 0.083% NEB SOLN 3 ML NEB NEB SCH ×6 (03:30→23:35)
[2018-06-23 06:19] LABS: BASOPHILS % 0.5 % (0.0-1.0); EOSINOPHILS # (AUTO) 0.6 (0.0-0.4); HEMATOCRIT 26.4 % (38.2-49.6); HEMOGLOBIN 8.4 g/dL (14.0-18.0); LYMPHOCYTES # (AUTO) 1.7 (1.0-3.2); LYMPHOCYTES % 19.8 % (18.0-39.1); MEAN CORPUSCULAR HGB CONC 31.8 g/dL (31-35); MONOCYTES # (AUTO) 0.7 (0.2-0.8); MONOCYTES % 8.1 % (4.4-11.3); NEUTROPHILS # (AUTO) 5.6 (2.1-6.9); NEUTROPHILS % 64.3 % (38.7-80.0); PLATELET COUNT 309 x10e3/uL (140-360); RED CELL DISTRIBUTION WIDTH 13.5 % (11.7-14.4)
[2018-06-23] MEDS: VANCOMYCIN 750MG/NS 150ML IVPB 150 ML IV SCH ×2 (06:28→17:27)
--- NOTE | 2018-06-23 06:33 | NUR ---
IM- Progress Note O/N; no events ROS: unreliable V/S: rev'd PE: Tired appearing HEET: Pupils round, equal, and reactive to light and accommodation Neck: normal neck supple Chest Lungs sound present on auscultation, decreased at the base, no rales, rhonchi, wheezing Cardiovascular: S1, S2, Abdomen: bowel sound presents x4q, abdomen soft, non-distended Extremities: MCBRIDE, left foot 2nd toe erythema/tenderness and between 1st/2nd toes Skin: Skin warm and dry to touch Neuro: AAOx2 labs/meds; revd A/P: A/P: 87yoM LEft foot 2nd toe infection- r/o osteomyelitis; vasc w-up; abx; sed rate; Left foot 2nd toe DFU Physical deconditioning Malaise/Fatigue - PT DM2- lipid/hba1c HTN meds HLD statin Dementia Memantine Constipation bowel regimen Severe cervical DDD PT Diastolic CHF chr - monitor Urinary retention - Flomax HAP right- zosyn/vanco Prop: Pepcid/Heparin Dispo d/w daughter at bedside; MRI to r/o osteomyelitis; cardiovasc consult for vasc w-up. 06/22 w-up anemia; angio pending; MRI pending; 06/23 leukocytosis resolved; sed rate 95. f/u BMP. Joaquin Cao MD,PhD.
[2018-06-23 06:41] LABS: ALANINE AMINOTRANSFERASE 7 IU/L (0-55); ALBUMIN 2.5 g/dL (3.5-5.0); ALBUMIN/GLOBULIN RATIO 0.7 (0.8-2.0); ALKALINE PHOSPHATASE 107 IU/L (40-150); ANION GAP 12.6 mmol/L (8-16); BLOOD UREA NITROGEN 8 mg/dL (7-26); BUN/CREATININE RATIO 10 (6-25); CALCIUM 8.5 mg/dL (8.4-10.2); CARBON DIOXIDE 23 mmol/L (22-29); CHLORIDE 107 mmol/L (98-107); CREATININE, SERUM 0.79 mg/dL (0.72-1.25); EST GLOMERULAR FILTRATION RATE > 60 ML/MIN (60-); GLUCOSE 115 mg/dL (74-118); POTASSIUM 3.6 mmol/L (3.5-5.1); SODIUM 139 mmol/L (136-145)
--- NOTE | 2018-06-23 07:07 | NUR ---
Addendum: Sepsis- cont abx; leukocytosis resolving; Joaquin Cao MD, PhD.
--- NOTE | 2018-06-23 07:29 | NUR ---
REPORT GIVEN TO ONCOMING NURSE,WALKING ROUNDS MADE.PT RESTING IN BED WITH NO S/S OF DISTRESS.
[2018-06-23] MEDS: FAMOTIDINE 20 MG TAB PO SCH (07:30)
[2018-06-23] MEDS: INSULIN LISPRO 100 UNIT/1 ML 3ML VIAL SQ SCH ×4 (07:30→21:14)
--- NOTE | 2018-06-23 07:30 | NUR ---
The pt. is in process of going to medical lab specialist.
[2018-06-23] MEDS ORDERED: SODIUM CHLORIDE 0.9% 1000ML 1,000 ML ONE (07:38)
[2018-06-23] MEDS ORDERED: LIDOCAINE HCL 1% LOCAL INJ 20 ML VIAL ONE (07:38)
[2018-06-23] MEDS ORDERED: IOPAMIDOL 300MG/ML 100 ML INFUS..BTL IV ONE (07:38)
[2018-06-23] MEDS ORDERED: HEPARIN SOD/SOD CHLORIDE 2,000 ML ONE (07:38)
[2018-06-23] MEDS ORDERED: MIDAZOLAM HCL 2 MG/2 ML VIAL ONE (07:53)
[2018-06-23] MEDS ORDERED: FENTANYL CITRATE/PF 100MCG/2 ML INJ ONE (07:54)
[2018-06-23] MEDS ORDERED: HEPARIN SOD (PORCINE) 1000 UNIT/ML 30ML ONE (08:04)
[2018-06-23] MEDS: DOCUSATE SODIUM 100 MG CAP PO SCH (09:00)
[2018-06-23] MEDS: MEMANTINE 10 MG TAB PO SCH (09:00)
[2018-06-23] MEDS: TRAMADOL HCL 50 MG TAB PO SCH (09:00)
[2018-06-23] MEDS: SENNOSIDES 8.6 MG TAB PO SCH ×2 (09:00→17:27)
[2018-06-23] MEDS: TAMSULOSIN HCL 0.4 MG CAP PO SCH (09:00)
[2018-06-23] MEDS: AZITHROMYCIN 500MG/NS 250 ML 250 ML IV SCH (09:00)
[2018-06-23] MEDS: RISPERIDONE 0.5 MG TAB PO SCH (09:00)
[2018-06-23] MEDS: ATORVASTATIN 40 MG TAB PO SCH (09:00)
[2018-06-23] MEDS ORDERED: CLOPIDOGREL BISULFATE 75 MG TAB ONE ×2 (09:05→09:48)
[2018-06-23] MEDS ORDERED: ASPIRIN 325 MG TAB ONE (09:06)
[2018-06-23] MEDS: SODIUM CHLORIDE 0.9% 1000ML 1,000 ML IV SCH ×2 (09:55→20:54)
--- NOTE | 2018-06-23 09:55 | NUR ---
Report received from the rn labor delivery and the pt. was returned to the unit via bed. He is awake alert and oriented times 3 speaks [place] only and the daughter translates. The groin is soft and no bleeding noted. The pulses are palpated with doppler. The pt. is to remain flat in bed with leg straight for 6 hrs. Morning meds held until the pt. is able to be elevate due to swallowing difficulty.
--- NOTE | 2018-06-23 10:30 | NUR ---
ST Note: Order for modified barium swallow study received. Had tentatively planned to complete MBS with radiology at 11:15. However, pt returned from procedure and cannot sit up until at least 3:15. Working on arrangements for MBS to be completed this PM.
--- NOTE | 2018-06-23 10:41 | Progress Note ---
DATE: June 23, 2018 CARDIOLOGY PROGRESS NOTE SUBJECTIVE: Confused. No other complaints. Status post left femoral popliteal drug-eluting balloon angioplasty and left TP trunk and posterior tibial artery [employer] with significant improvement in flow and left plantar arch filling and digital filling perfusion on final angiography. PHYSICAL EXAMINATION VITALS: Temperature 98.9, heart rate 97, blood pressure 129/70, respiratory rate 17, O2 sat 97%. BMI 28.2. GENERAL: In no acute distress. Alert. NECK: No JVD. CHEST: Clear to auscultation. CARDIOVASCULAR: Regular rate and rhythm. Normal S1 and S2. ABDOMEN: Soft and nontender. EXTREMITIES: No edema. Left 2nd toe ulceration. CARDIOVASCULAR MEDICATIONS: Reviewed. 1. Aspirin 81 mg daily. 2. Clopidogrel 75 mg daily. 3. Atorvastatin 40 mg p.o. at night. 4. 0.4 mg daily. 5. Lovenox 40 mg subcutaneous daily. STUDIES: Reviewed. Creatinine is 0.7. Hemoglobin 8.4. White blood cells 8.6 and platelets 309,000. INR 0.9. ASSESSMENT 1. Peripheral vascular disease: Status post left femoral popliteal drug-eluting percutaneous transluminal angioplasty and left TP trunk percutaneous transluminal angioplasty and perfusion. 2. Anemia. 3. Dementia. 4. Hypertension. 5. Dyslipidemia. 6. Critical limb ischemia. 7. Ulcer to left 2nd toe. RECOMMENDATIONS: Continue current cardiovascular medications. Continue foot care. Job#: [id number] POONAM
--- NOTE | 2018-06-23 11:38 | NUR ---
Pt undergoing dialysis upon arrival. PT will continue to follow-up this afternoon. Addendum: 06/23/18 at 1321 by Kath Guerra PT Entered note in error. Disregard.
--- NOTE | 2018-06-23 13:19 | NUR ---
ST note: Communicated with pt/family and YINKA Cesar. MBS to be completed later today.
[2018-06-23] MEDS: ENOXAPARIN SOD INJ 40 MG/0.4 ML SYR SC SCH (17:27)
--- NOTE | 2018-06-23 17:36 | NUR ---
MBS is scheduled to be performed around 1999 as the pt. was maintained on bedrest until 1544 and the daytime therapist had to leave.
--- NOTE | 2018-06-23 19:22 | NUR ---
Report to the oncoming nurse.
--- NOTE | 2018-06-23 21:30 | NUR ---
Spoke with radiologist regarding MBS scheduled at 1999 stated they cannot do it until Tuesday because their is no Doctor to read the result. Speech therapist will do bedside and recommended to raised patient head during meals and to have mechanical soft diet.
[2018-06-24] MEDS: PIPER-TAZ 3.375 GM 50 ML IV SCH ×4 (00:23→18:53)
[2018-06-24 00:34] VITALS: BP 178/82
[2018-06-24] MEDS: IPRATROPIUM BROMIDE 0.02% 2.5 ML NEB NEB SCH ×5 (01:00→23:27)
--- NOTE | 2018-06-24 01:00 | NUR ---
Blood Pressure rechecked 154/72 mmhg.
[2018-06-24 01:09] VITALS: BP 154/72
--- NOTE | 2018-06-24 02:51 | Operative Report ---
DATE OF PROCEDURE: June 23, 2018 PERIPHERAL ANGIOGRAPHY AND INTERVENTION PROCEDURE INDICATION: Critical limb ischemia with gangrenous ulceration of second left toe and abnormal Doppler ultrasound. PROCEDURES PERFORMED 1. Abdominal aortogram. 2. Selective lower extremity angiography, bilateral. 3. Left superficial femoral artery and popliteal artery drug-eluting balloon angioplasty. 4. Left tibioperoneal trunk and peroneal artery angioplasty, percutaneous transluminal angioplasty. 5. Attempted and aborted left anterior tibial artery percutaneous transluminal angioplasty. 6. Right common femoral artery 6-Albanian Angio-Seal closure. 7. Ultrasound-guided access. 8. Third-order catheter placement from right common femoral artery to left common femoral artery. 9. Additional third-order catheter placement from right common femoral artery to left popliteal artery for better visualization of below the knee vessels that optimally visualized on initial selective left lower extremity angiography. ESTIMATED BLOOD LOSS: Less than 15 mL. PROCEDURE COMPLICATIONS: None. PROCEDURE SUMMARY: After consent was obtained, the patient was prepped and draped in a sterile fashion. The right common femoral artery site was locally infiltrated with 2% lidocaine. Access was obtained and a 6-Albanian sheath was placed. All catheters were railed into the respective positions. An Omni Flush catheter was initially positioned in the abdominal aorta and angiography revealed patent renal arteries and less than 30% stenosis of the infrarenal aorta and iliac vessels bilaterally. The common femoral and profunda femoris had mild disease, less than 30% stenosis. The right SFA had 70% distal stenosis. The right anterior tibial artery was 100% occluded. The right peroneal artery was 100% occluded. The posterior tibial artery was patent on the right lower extremity. The left lower extremity had 70% mid stenosis and 90% distal stenosis and the left popliteal had 90% stenosis and left TP trunk had 80% stenosis. The left PT artery had 70% to 90% tandem lesions. The left anterior tibial was 100% occluded, mid to distal. The left peroneal artery was 100% occluded, mid to distal. Heparin was used to maintain ACT over 250. Aspirin 325 mg and Plavix 600 mg were given for preload. Of note, patient's confusion and agitation made it a complex case and knee immobilizer was used to assist in maintaining left lower extremity position for completion of intervention. Advantage wire was used to advance a Seeker catheter to distal and position and a Roadrunner wire was then used to cross the areas of critical stenosis and exchange to wire positioned in the posterior tibial artery. The posterior tibial artery as well as the left TP trunk were intervened with a 2.5 x 220 Ultraverse balloon with less than 10% residual stenosis across the left TP trunk and left posterior tibial artery. Attention was then directed to the SFA and left popliteal artery, which were treated initially with pre-dilatation with VascuTrak 3.5 x 150 followed by a 4.0 x 150 and then drug-eluting balloon 4.0 x 220 and 5.0 x 220 Lutonix drug-eluting balloon across the full extent of the areas of stenosis of the left SFA and left popliteal artery. Final angiography revealed less than 10% residual stenosis across the left SFA, left popliteal, left TP trunk, and left posterior tibial artery with re-establishment of linear flow via patent posterior tibial artery down to the left plantar arch, which reconstitutes and gives rise to arteries. There is distal faint filling of the left anterior tibial artery at the end of the procedure filling retrograde from the posterior tibial artery. The proximal segment of the left anterior tibial has collaterals arising from the proximal calf, attempted to cross via antegrade approach where we met with inability to cross into the intraluminal space given anatomy. Left pedal retrograde anterior tibial artery approach to be considered at a later date if necessary; however, given the filling of the plantar arch from posterior tibial artery, significant improvement in severe lesions and proximal outflow region of SFA, popliteal segments and TP trunk, likelihood of healing is improved following this procedure and we will assess response. CONCLUSION: Left SFA, left popliteal drug-eluting balloon, SAND TESTER, left TP trunk, and left posterior tibial SAND TESTER. RECOMMENDATIONS: Aspirin and Plavix, bed rest, and assess healing. Monitor for progression of PAD-associated ischemic events to each of bilateral lower extremities given PAD noted to both legs. Job#: [id number] MARS
[2018-06-24] MEDS: ALBUTEROL SULF 0.083% NEB SOLN 3 ML NEB NEB SCH ×5 (03:00→23:00)
[2018-06-24] MEDS: SODIUM CHLORIDE 0.9% 1000ML 1,000 ML IV SCH ×2 (05:55→18:51)
[2018-06-24 05:59] LABS: BASOPHILS % 0.4 % (0.0-1.0); EOSINOPHILS # (AUTO) 0.5 (0.0-0.4); EOSINOPHILS % 4.7 % (0.0-6.0); HEMATOCRIT 26.2 % (38.2-49.6); HEMOGLOBIN 8.9 g/dL (14.0-18.0); LYMPHOCYTES % 19.5 % (18.0-39.1); MEAN CORPUSCULAR HEMOGLOBIN 29.9 pg (28-32); MEAN CORPUSCULAR VOLUME 87.9 fL (81-99); MONOCYTES # (AUTO) 0.6 (0.2-0.8); MONOCYTES % 6.4 % (4.4-11.3); NEUTROPHILS # (AUTO) 6.9 (2.1-6.9); NEUTROPHILS % 68.7 % (38.7-80.0); PLATELET COUNT 318 x10e3/uL (140-360); RED BLOOD COUNT 2.98 x10e6/uL (4.3-5.7); RED CELL DISTRIBUTION WIDTH 13.4 % (11.7-14.4)
[2018-06-24 06:02] VITALS: BP 178/92
[2018-06-24] MEDS: VANCOMYCIN 750MG/NS 150ML IVPB 150 ML IV SCH ×2 (06:12→18:29)
[2018-06-24 06:16] LABS: ANION GAP 14.5 mmol/L (8-16); BLOOD UREA NITROGEN 9 mg/dL (7-26); BUN/CREATININE RATIO 11 (6-25); CALCIUM 8.5 mg/dL (8.4-10.2); CARBON DIOXIDE 22 mmol/L (22-29); CHLORIDE 106 mmol/L (98-107); EST GLOMERULAR FILTRATION RATE > 60 ML/MIN (60-); GLUCOSE 96 mg/dL (74-118); POTASSIUM 3.5 mmol/L (3.5-5.1); SODIUM 139 mmol/L (136-145)
--- NOTE | 2018-06-24 07:12 | NUR ---
PT ALERT RESP EVEN AND UNLABORED AT THIS TIME, NO DISTRESS NOTED , PT ABLE TO MAKE NEEDS KNOWN, NO C/O PAIN AT THIS TIME.
[2018-06-24] MEDS: INSULIN LISPRO 100 UNIT/1 ML 3ML VIAL SQ SCH ×4 (07:30→21:00)
[2018-06-24] MEDS ORDERED: ASPIRIN 325 MG TAB PO SCH (09:00)
[2018-06-24] MEDS: DOCUSATE SODIUM 100 MG CAP PO SCH (09:43)
[2018-06-24] MEDS: RISPERIDONE 0.5 MG TAB PO SCH (09:43)
[2018-06-24] MEDS: TAMSULOSIN HCL 0.4 MG CAP PO SCH (09:43)
[2018-06-24] MEDS: ASPIRIN 81 MG ENTERIC COATED PO SCH (09:43)
[2018-06-24] MEDS: AZITHROMYCIN 500MG/NS 250 ML 250 ML IV SCH (09:43)
[2018-06-24] MEDS: FAMOTIDINE 20 MG TAB PO SCH (09:43)
[2018-06-24] MEDS: MEMANTINE 10 MG TAB PO SCH (09:43)
[2018-06-24] MEDS: CLOPIDOGREL BISULFATE 75 MG TAB PO SCH (09:43)
[2018-06-24] MEDS: SENNOSIDES 8.6 MG TAB PO SCH ×2 (09:43→18:51)
[2018-06-24] MEDS: ATORVASTATIN 40 MG TAB PO SCH (09:43)
[2018-06-24] MEDS: TRAMADOL HCL 50 MG TAB PO SCH (09:44)
--- NOTE | 2018-06-24 10:22 | NUR ---
IM- Progress Note O/N; no events ROS: unreliable V/S: rev'd PE: Tired appearing HEET: Pupils round, equal, and reactive to light and accommodation Neck: normal neck supple Chest Lungs sound present on auscultation, decreased at the base, no rales, rhonchi, wheezing Cardiovascular: S1, S2, Abdomen: bowel sound presents x4q, abdomen soft, non-distended Extremities: MCBRIDE, left foot 2nd toe erythema/tenderness and between 1st/2nd toes Skin: Skin warm and dry to touch Neuro: AAOx2 labs/meds; revd A/P: A/P: 87yoM LEft foot 2nd toe infection- r/o osteomyelitis; vasc w-up; abx; sed rate; Left foot 2nd toe DFU Sepsis - POA Physical deconditioning Malaise/Fatigue - PT DM2- lipid/hba1c HTN meds HLD statin Dementia Memantine Constipation bowel regimen Severe cervical DDD PT Diastolic CHF chr - monitor Urinary retention - Flomax HAP right- zosyn/vanco Prop: Pepcid/Heparin Dispo d/w daughter at bedside; MRI to r/o osteomyelitis; cardiovasc consult for vasc w-up. 06/22 w-up anemia; angio pending; MRI pending; 06/23 leukocytosis resolved; sed rate 95. f/u BMP. 2/2 s/p Left fem pop THEO. control BP. Joaquin Cao MD,PhD.
[2018-06-24 12:03] VITALS: BP 145/68
[2018-06-24 16:41] VITALS: BP 147/87
[2018-06-24] MEDS: ENOXAPARIN SOD INJ 40 MG/0.4 ML SYR SC SCH (18:51)
[2018-06-24] MEDS: METOPROLOL TARTRATE 25 MG TAB PO SCH ×2 (18:52→18:54)
--- NOTE | 2018-06-24 19:17 | Progress Note ---
DATE: June 24, 2018 CARDIOLOGY PROGRESS NOTE SUBJECTIVE: No new complaints. PHYSICAL EXAMINATION VITALS: Temperature of 99.5, heart rate 76, blood pressure 145/68, respiratory rate 20, O2 sat 97%. GENERAL: In no acute distress. Alert. NECK: No JVD. CHEST: Clear to auscultation. CARDIOVASCULAR: Regular rate and rhythm. Normal S1 and S2. ABDOMEN: Soft and nontender. EXTREMITIES: No edema with left 2nd toe ulceration and black discoloration. CARDIOVASCULAR MEDICATIONS: Reviewed. Atorvastatin, clopidogrel, aspirin, vancomycin, Zosyn, tamsulosin, metoprolol, Lovenox for prophylaxis. STUDIES: Reviewed. Potassium 3.5, creatinine is 0.8. Hemoglobin 8.9, white blood cells 10, platelets 318. INR 0.9. ASSESSMENT 1. Peripheral vascular disease, status post left femoral popliteal and posterior tibial artery revascularization via endovascular approach. 2. Dementia. 3. Hypertension. 4. Dyslipidemia. RECOMMENDATIONS: Continue current cardiovascular medications and monitor foot wound healing. Antibiotics and foot care per primary surgeon and podiatry. Job#: [id number] LUIS
--- NOTE | 2018-06-24 19:48 | NUR ---
REPORT GIVEN TO ONCOMING NURSE, FOR CONTINUED CARE.
--- NOTE | 2018-06-24 20:15 | NUR ---
Patient received lying in bed. AAO x 2. No signs of pain or respiratory distress. Patient assisted to a more comfortable position. Fall precautions maintained. Call light within reach.
[2018-06-24 22:05] VITALS: BP 167/86
[2018-06-25] VITALS (7 sets, daily range): BP systolic 119–159; BP diastolic 59–87
[2018-06-25] MEDS: PIPER-TAZ 3.375 GM 50 ML IV SCH ×4 (00:39→18:37)
[2018-06-25] MEDS: SODIUM CHLORIDE 0.9% 1000ML 1,000 ML IV SCH ×3 (01:55→21:55)
[2018-06-25] MEDS: ALBUTEROL SULF 0.083% NEB SOLN 3 ML NEB NEB SCH ×6 (03:00→23:25)
[2018-06-25] MEDS: IPRATROPIUM BROMIDE 0.02% 2.5 ML NEB NEB SCH ×3 (04:25→19:45)
[2018-06-25] MEDS: VANCOMYCIN 750MG/NS 150ML IVPB 150 ML IV SCH ×2 (06:00→18:00)
--- NOTE | 2018-06-25 06:25 | NUR ---
Wound dressing performed as per MD's order on left foot . Patient not very cooperative about the rest of the wound treatment.
--- NOTE | 2018-06-25 07:05 | NUR ---
pt asleep resp even and unlabored at this time, pt easily aroused, pt has family member at bedside, pt no distress noted, call light in reach.
[2018-06-25] MEDS: INSULIN LISPRO 100 UNIT/1 ML 3ML VIAL SQ SCH ×4 (07:30→20:57)
[2018-06-25] MEDS: AZITHROMYCIN 500MG/NS 250 ML 250 ML IV SCH (09:56)
[2018-06-25] MEDS: ATORVASTATIN 40 MG TAB PO SCH (10:11)
[2018-06-25] MEDS: RISPERIDONE 0.5 MG TAB PO SCH (10:11)
[2018-06-25] MEDS: ASPIRIN 81 MG ENTERIC COATED PO SCH (10:11)
[2018-06-25] MEDS: CLOPIDOGREL BISULFATE 75 MG TAB PO SCH (10:11)
[2018-06-25] MEDS: SENNOSIDES 8.6 MG TAB PO SCH ×2 (10:11→18:37)
[2018-06-25] MEDS: DOCUSATE SODIUM 100 MG CAP PO SCH (10:11)
[2018-06-25] MEDS: MEMANTINE 10 MG TAB PO SCH (10:11)
[2018-06-25] MEDS: TRAMADOL HCL 50 MG TAB PO SCH (10:12)
[2018-06-25] MEDS: FAMOTIDINE 20 MG TAB PO SCH (10:13)
[2018-06-25] MEDS: TAMSULOSIN HCL 0.4 MG CAP PO SCH (10:13)
[2018-06-25] MEDS: METOPROLOL TARTRATE 25 MG TAB PO SCH ×2 (10:16→18:37)
[2018-06-25] MEDS: ENOXAPARIN SOD INJ 40 MG/0.4 ML SYR SC SCH (18:37)
--- NOTE | 2018-06-25 19:19 | NUR ---
Received patient asleep in bed. Arousable to tactile stimuli. No acute distress noted. Fall precautions in place. Call light within reach.
--- NOTE | 2018-06-25 19:25 | NUR ---
REPORT GIVEN TO ONCOMING NURSE, FOR CONTINUED CARE.
--- NOTE | 2018-06-25 22:16 | Progress Note ---
DATE: June 25, 2018 CARDIOLOGY PROGRESS NOTE SUBJECTIVE: No complaints. PHYSICAL EXAMINATION VITAL SIGNS: Temperature 99.4, heart rate 91, blood pressure 130/60, respiratory rate 18, and O2 sat 93%. GENERAL: No acute distress. Alert. NECK: No JVD. CHEST: Clear to auscultation. CARDIOVASCULAR: Regular rate and rhythm. Normal S1 and S2. ABDOMEN: Soft and nontender. EXTREMITIES: No edema with left 2nd toe ulceration. CARDIOVASCULAR MEDICATIONS: Reviewed. further therapy statin 1. Metoprolol tartrate mg twice a day. 2. Aspirin 81 mg daily. 3. Clopidogrel 75 mg daily. 4 . Atorvastatin 40 mg daily. STUDIES: Reviewed. Creatinine is 0.8. Hemoglobin is 8.9, stable. White blood cells 10, platelets 318,000. ASSESSMENT 1. Peripheral vascular disease, status post left femoral popliteal and posterior tibial revascularization via endovascular approach. 2. Dementia. 3. Hypertension. 4. Dyslipidemia. 5. Anemia. RECOMMENDATIONS 1. Continue current cardiovascular medications and monitor H and H. 2. Continue wound care. 3. Antibiotics. Job#: [id number]
[2018-06-26] VITALS (9 sets, daily range): BP systolic 132–157; BP diastolic 64–88
--- NOTE | 2018-06-26 00:18 | NUR ---
Patient appeared diaphoretic. Blood sugar checked and recorded as 29. Dextrose 50% given stat. Blood sugar re-checked after 15 minutes and recorded as 237. Patient awake and alert.
[2018-06-26] MEDS: PIPER-TAZ 3.375 GM 50 ML IV SCH ×4 (01:00→17:21)
[2018-06-26] MEDS: ALBUTEROL SULF 0.083% NEB SOLN 3 ML NEB NEB SCH ×6 (02:30→23:00)
[2018-06-26] MEDS: IPRATROPIUM BROMIDE 0.02% 2.5 ML NEB NEB SCH ×4 (02:30→19:00)
[2018-06-26] MEDS: VANCOMYCIN 750MG/NS 150ML IVPB 150 ML IV SCH ×2 (06:40→18:56)
--- NOTE | 2018-06-26 07:00 | NUR ---
Walking rounds done and report received. Patient is awake and alert x2. Bed in lowest position, locked , bed alarm on and call taylor within reach.
--- NOTE | 2018-06-26 07:25 | NUR ---
Walking rounds done. Shift report given to oncoming nurse.
[2018-06-26] MEDS: INSULIN LISPRO 100 UNIT/1 ML 3ML VIAL SQ SCH ×4 (07:30→21:15)
[2018-06-26] MEDS: SODIUM CHLORIDE 0.9% 1000ML 1,000 ML IV SCH ×2 (07:55→17:22)
[2018-06-26] MEDS: TRAMADOL HCL 50 MG TAB PO SCH (09:00)
--- NOTE | 2018-06-26 09:20 | NUR ---
MBS in progress. Patient tolerating well
[2018-06-26] MEDS: MEMANTINE 10 MG TAB PO SCH (09:28)
[2018-06-26] MEDS: METOPROLOL TARTRATE 25 MG TAB PO SCH ×2 (09:28→17:21)
[2018-06-26] MEDS: CLOPIDOGREL BISULFATE 75 MG TAB PO SCH (09:28)
[2018-06-26] MEDS: ASPIRIN 81 MG ENTERIC COATED PO SCH (09:28)
[2018-06-26] MEDS: DOCUSATE SODIUM 100 MG CAP PO SCH (09:28)
[2018-06-26] MEDS: AZITHROMYCIN 500MG/NS 250 ML 250 ML IV SCH (09:28)
[2018-06-26] MEDS: TAMSULOSIN HCL 0.4 MG CAP PO SCH (09:28)
[2018-06-26] MEDS: ATORVASTATIN 40 MG TAB PO SCH (09:28)
[2018-06-26] MEDS: FAMOTIDINE 20 MG TAB PO SCH (09:28)
[2018-06-26] MEDS: SENNOSIDES 8.6 MG TAB PO SCH ×2 (09:29→17:00)
[2018-06-26] MEDS: RISPERIDONE 0.5 MG TAB PO SCH (09:29)
--- NOTE | 2018-06-26 11:21 | NUR ---
IM- Progress Note O/N; no events ROS: unreliable V/S: rev'd PE: Tired appearing HEET: Pupils round, equal, and reactive to light and accommodation Neck: normal neck supple Chest Lungs sound present on auscultation, decreased at the base, no rales, rhonchi, wheezing Cardiovascular: S1, S2, Abdomen: bowel sound presents x4q, abdomen soft, non-distended Extremities: MCBRIDE, left foot 2nd toe erythema/tenderness and between 1st/2nd toes Skin: Skin warm and dry to touch Neuro: AAOx2 labs/meds; revd A/P: A/P: 87yoM LEft foot 2nd toe infection- r/o osteomyelitis; vasc w-up; abx; sed rate; Left foot 2nd toe DFU Sepsis - POA Physical deconditioning Malaise/Fatigue - PT DM2- lipid/hba1c HTN meds HLD statin Dementia Memantine Constipation bowel regimen Severe cervical DDD PT Diastolic CHF chr - monitor Urinary retention - Flomax HAP right- zosyn/vanco Prop: Pepcid/Heparin Dispo d/w daughter at bedside; MRI to r/o osteomyelitis; cardiovasc consult for vasc w-up. 06/22 w-up anemia; angio pending; MRI pending; 06/23 leukocytosis resolved; sed rate 95. f/u BMP. 2/2 s/p Left fem pop THEO. control BP. 2/3 vancomycin therapeutic; cont iv abx; 2/4 f/u MBS; check lab;s Joaquin Cao MD,PhD.
[2018-06-26 12:16] LABS: BASOPHILS # (AUTO) 0.1 (0.0-0.1); BASOPHILS % 0.4 % (0.0-1.0); EOSINOPHILS # (AUTO) 0.7 (0.0-0.4); EOSINOPHILS % 5.8 % (0.0-6.0); HEMATOCRIT 26.3 % (38.2-49.6); HEMOGLOBIN 8.3 g/dL (14.0-18.0); LYMPHOCYTES # (AUTO) 1.8 (1.0-3.2); LYMPHOCYTES % 15.9 % (18.0-39.1); MEAN CORPUSCULAR HEMOGLOBIN 28.7 pg (28-32); MEAN CORPUSCULAR HGB CONC 31.6 g/dL (31-35); MONOCYTES # (AUTO) 0.6 (0.2-0.8); MONOCYTES % 5.3 % (4.4-11.3); NEUTROPHILS # (AUTO) 8.2 (2.1-6.9); NEUTROPHILS % 71.9 % (38.7-80.0); PLATELET COUNT 357 x10e3/uL (140-360); RED BLOOD COUNT 2.89 x10e6/uL (4.3-5.7); RED CELL DISTRIBUTION WIDTH 13.4 % (11.7-14.4)
[2018-06-26 12:40] LABS: ANION GAP 12.3 mmol/L (8-16); BLOOD UREA NITROGEN 11 mg/dL (7-26); BUN/CREATININE RATIO 14 (6-25); CALCIUM 8.3 mg/dL (8.4-10.2); CARBON DIOXIDE 22 mmol/L (22-29); CHLORIDE 108 mmol/L (98-107); CREATININE, SERUM 0.79 mg/dL (0.72-1.25); EST GLOMERULAR FILTRATION RATE > 60 ML/MIN (60-); GLUCOSE 197 mg/dL (74-118); POTASSIUM 3.3 mmol/L (3.5-5.1); SODIUM 139 mmol/L (136-145)
--- NOTE | 2018-06-26 13:29 | Diagnostic Imaging Report ---
PROCEDURE: X-RAY MODIFIED BARIUM SWALLOW COMPARISON: None. INDICATION: Aspiration. Radiation Details: Fluoroscopy time: 1.3 minutes Cumulative air kerma: 12.4 mGy DISCUSSION: Fluoroscopic examination was performed in conjunction with speech pathology during swallowing a variety of thin and thick liquid consistencies. Provided images demonstrate no evidence of penetration or aspiration. Minimal vallecular residue is noted. CONCLUSION: Modified barium swallow demonstrating no evidence of penetration or aspiration. Please refer to the speech pathology report for further details including reported suspected aspiration post procedurally after exam termination. Signed by: Dr. Rajat Chatterjee MD on 06/26/2018 1:26 PM
--- NOTE | 2018-06-26 14:00 | NUR ---
Daughter at the bedside. Patient without any complaints. Call taylor within reach.
[2018-06-26] MEDS: ENOXAPARIN SOD INJ 40 MG/0.4 ML SYR SC SCH (17:21)
--- NOTE | 2018-06-26 17:48 | NUR ---
Nutrition Screen Note RD Recommendation for Physician: -Rec adding ADA to cardiac diet (HbA1c at 7.2%) Plan of Care: RD following, monitoring for tolerance and adequacy Nutrition reason for involvement: LOS Primary Diagnose(s): Peripheral vascular disease, status post left femoral popliteal and posterior tibial revascularization via endovascular approach. PMH: Hypertension, diabetes, hyperlipidemia, CHF, UTI, dementia, anemia, and CKD. Ht: 59in Wt: 130.5lb BMI: 26.4kg/m2 IBW: 100lb RD Assessment: (06/26) Chart reviewed. Labs and meds reviewed. 87yo M, who was admitted for L foot pain. Pt was discussed during rounds. Modified barium swallow demonstrated no evidence of penetration or aspiration; no diet modification needed. Wound care on the case. Currently on abx. Visited pt in the room. Pt unable to provide hx due to dementia. No family presented on bedside. RN recorded 75-100% meal intake since admission. Will continue to monitor and follow. Current Diet: cardiac diet Malnutrition Evaluation (06/26/2018) The patient does not meet criteria for a specified degree of malnutrition at this time. Will re-evaluate at follow-up as appropriate. Diet Education Needs Assessment: Diet education not indicated. Nutrition Care Level: low Signed: Mary Kim, MS, RD, LD
--- NOTE | 2018-06-26 20:32 | Progress Note ---
DATE: June 26, 2018 CARDIOLOGY PROGRESS NOTE SUBJECTIVE: Pleasantly confused, no complaints. PHYSICAL EXAMINATION: VITAL SIGNS: Temperature 97.3, heart rate 91, blood pressure 145/79, respiratory rate 18, O2 sat 99%. GENERAL: In no acute distress, alert. NECK: No JVD. CHEST: Clear to auscultation. CARDIOVASCULAR: Regular rate and rhythm. Normal S1 and S2. ABDOMEN: Soft, nontender. EXTREMITIES: No edema. Left second toe ulcer. CARDIOVASCULAR MEDICATIONS: Reviewed. Atorvastatin, clopidogrel, metoprolol, Zosyn, vancomycin, azithromycin, Lovenox 40 mg subcutaneous daily, and aspirin 81 mg daily. STUDIES: Creatinine is 0.7. Hemoglobin 8.3, white blood cells 11.3. INR is 0.9. ASSESSMENT 1. Peripheral vascular disease, status post revascularization of left femoropopliteal and posterior tibial arteries. 2. Dementia. 3. Diabetes mellitus. 4. Pneumonia. RECOMMENDATIONS 1. Continue current cardiovascular medications. 2. Monitor blood pressure. If continues elevated, may up-titrate . Job#: [id number]
[2018-06-26] MEDS: ACETAMINOPHEN/CODEINE 300MG - 30MG TAB PO PRN (22:57)
[2018-06-27] VITALS: BP 166/75
[2018-06-27] MEDS: PIPER-TAZ 3.375 GM 50 ML IV SCH ×2 (00:36→05:47)
[2018-06-27] MEDS: IPRATROPIUM BROMIDE 0.02% 2.5 ML NEB NEB SCH ×2 (01:00→07:00)
[2018-06-27] MEDS: ALBUTEROL SULF 0.083% NEB SOLN 3 ML NEB NEB SCH ×3 (03:00→11:00)
--- NOTE | 2018-06-27 05:00 | NUR ---
PT REFUSED LABS TO BE DRAWN WITH THE SUBSTANCE ABUSE NURSE AND THIS NURSE AT THIS TIME.SUBSTANCE ABUSE NURSE STATED THAT SHE IS GOING TO COME BACK AT LATER TIME AND TRY AGAIN.
[2018-06-27] MEDS: VANCOMYCIN 750MG/NS 150ML IVPB 150 ML IV SCH (06:20)
[2018-06-27 06:21] VITALS: BP 128/83
[2018-06-27] MEDS ORDERED: SENOKOT8.6 MG PO (06:47)
[2018-06-27] MEDS ORDERED: COLACE100 M1 PO (06:47)
[2018-06-27] MEDS ORDERED: LOPRESSOR25 MG PO (06:47)
[2018-06-27] MEDS ORDERED: CIPRO500 MG PO (06:47)
[2018-06-27] MEDS ORDERED: MINOCYCLINE HCL50 MG PO (06:47)
[2018-06-27] MEDS ORDERED: ASPIRIN EC81 MG PO (06:49)
[2018-06-27] MEDS ORDERED: PLAVIX75 MG PO (06:49)
[2018-06-27] MEDS ORDERED: Atorvastatin PO (06:49)
--- NOTE | 2018-06-27 06:55 | NUR ---
Walking rounds done and report received. Patient is resting in bed in NAD without any complaints voiced at this time. Bed in lowest position, locked, bed alarm on and call taylor within reach.
[2018-06-27] MEDS: INSULIN LISPRO 100 UNIT/1 ML 3ML VIAL SQ SCH ×2 (07:30→11:30)
[2018-06-27 07:41] VITALS: BP 160/72
[2018-06-27 08:08] LABS: BASOPHILS # (AUTO) 0.1 (0.0-0.1); BASOPHILS % 0.7 % (0.0-1.0); EOSINOPHILS # (AUTO) 0.9 (0.0-0.4); EOSINOPHILS % 8.6 % (0.0-6.0); HEMATOCRIT 28.7 % (38.2-49.6); HEMOGLOBIN 9.2 g/dL (14.0-18.0); LYMPHOCYTES # (AUTO) 2.7 (1.0-3.2); LYMPHOCYTES % 26.7 % (18.0-39.1); MEAN CORPUSCULAR HGB CONC 32.1 g/dL (31-35); MEAN CORPUSCULAR VOLUME 90.5 fL (81-99); MONOCYTES # (AUTO) 0.6 (0.2-0.8); MONOCYTES % 6.2 % (4.4-11.3); NEUTROPHILS # (AUTO) 5.7 (2.1-6.9); NEUTROPHILS % 57.2 % (38.7-80.0); PLATELET COUNT 396 x10e3/uL (140-360); RED BLOOD COUNT 3.17 x10e6/uL (4.3-5.7); RED CELL DISTRIBUTION WIDTH 13.6 % (11.7-14.4)
[2018-06-27 08:22] LABS: ANION GAP 13.6 mmol/L (8-16); BLOOD UREA NITROGEN 11 mg/dL (7-26); BUN/CREATININE RATIO 13 (6-25); CALCIUM 8.7 mg/dL (8.4-10.2); CARBON DIOXIDE 22 mmol/L (22-29); CHLORIDE 107 mmol/L (98-107); CREATININE, SERUM 0.85 mg/dL (0.72-1.25); EST GLOMERULAR FILTRATION RATE > 60 ML/MIN (60-); GLUCOSE 104 mg/dL (74-118); POTASSIUM 3.6 mmol/L (3.5-5.1); SODIUM 139 mmol/L (136-145)
[2018-06-27] MEDS: FAMOTIDINE 20 MG TAB PO SCH (08:30)
[2018-06-27] MEDS: TAMSULOSIN HCL 0.4 MG CAP PO SCH (09:00)
[2018-06-27] MEDS: ATORVASTATIN 40 MG TAB PO SCH (09:00)
[2018-06-27] MEDS: TRAMADOL HCL 50 MG TAB PO SCH (09:00)
[2018-06-27] MEDS: RISPERIDONE 0.5 MG TAB PO SCH (09:00)
[2018-06-27] MEDS: CLOPIDOGREL BISULFATE 75 MG TAB PO SCH (09:00)
[2018-06-27] MEDS: DOCUSATE SODIUM 100 MG CAP PO SCH (09:00)
[2018-06-27] MEDS: MEMANTINE 10 MG TAB PO SCH (09:00)
[2018-06-27] MEDS: ASPIRIN 81 MG ENTERIC COATED PO SCH (09:00)
[2018-06-27] MEDS: AZITHROMYCIN 500MG/NS 250 ML 250 ML IV SCH (09:00)
[2018-06-27] MEDS: METOPROLOL TARTRATE 25 MG TAB PO SCH (09:00)
[2018-06-27] MEDS: SENNOSIDES 8.6 MG TAB PO SCH (09:00)
--- NOTE | 2018-06-27 09:34 | NUR ---
CASE MANAGEMENT INITIAL ASSESSMENT Check Clerk to bedside to discuss plan of care with patient/family. CM/SW role and care transitions discussed. Anticipated discharge plan discussed along with duration of care. CM/SW discussed patients right to make decisions in care. CM/SW work hours given. Spoke with pt's daughter at bedside. Patient lives: with daughter Clarisa Admit/Transfer: thru ED Hospital/ER visits since last admit: was at [facility] 1.5 months ago POA/Emergency contact: Clarisa Wang [phone] Current/Previous Home Health: did have home health previously; does not remember name PCP/Follow-up Care: Dr. Mccoy; pt's daughter stated that they follow up closely with PCP and she will make an appointment for her dad within 7 days of discharge. Current/Previous DME: walker, wheelchair. mainly uses wheelchair. Medications (referring to index hospitalization or the first time you were in the hospital) a. Were changes made in your medications when you were in the hospital on [date of index hospitalization]? no b. Did you understand the changes? n/a c. Were you able to obtain your new medications right away? n/a d. Were you able to take your medications like the doctor wanted you to? yes e. Did the hospital give you an accurate, easy to understand list of medications when you left? n/a Scale of 1-10 how comfortable does patient feel with disease management in outpatient setting: Other Services: none Employment Status: retired Areas of Concerns: weakness, foot ulcers, pneumonia Referral Needs: needs home health Education Needs: medical management IMM/[place] given and signed (if applicable): IMM letter delivered and explained. Pt's daughter verbalized understanding. Signed copy placed in chart. Copy to pt's daughter. Goal for discharge: Home with home health CM/SW left business card at the bedside with contact information. Name and number was also written on the patients whiteboard. Patient verbalized understanding of discussion. CM will follow-up with ongoing discharge and transition of care needs. Received order for home health. Pt's daughter stated she did not have preference for a company as long as they take pt's insurance. Signed choice letter placed in chart. Copy to pt's daughter.
--- NOTE | 2018-06-27 10:50 | NUR ---
ST NOTE: Attempted to see pt for follow up with swallow function after MBS, pt given pain medicaiton and not alert enough to participate, will reattempt at later time. Pt to d/c today. Handoff to YINKA Carmona
--- NOTE | 2018-06-27 11:00 | NUR ---
Dr. Lopez cleared patient for discharge. Patient will need to follow up in 4 weeks in the office.
[2018-06-27 11:51] VITALS: BP 140/68
[2018-06-27 11:56] VITALS: BP 140/68
--- NOTE | 2018-06-27 13:00 | NUR ---
Dr Christianson making rounds and patient may go home from podiatry stand point.
--- NOTE | 2018-06-27 14:15 | NUR ---
Patient discharged home with daughter and home health set up by skilled nursing case manager.
--- NOTE | 2018-06-27 14:39 | NUR ---
CM called and spoke to Aidee at [facility] and verified that they are accepting pt's insurance. Informed Aidee that CM will send referral and that pt is discharging today. She said they will be able to see pt within the 24-48 hr timeframe. Referral was faxed. [address] [address] P [phone] F [phone]
--- NOTE | 2018-06-27 22:27 | Progress Note ---
DATE: June 27, 2018 CARDIOLOGY PROGRESS NOTE SUBJECTIVE: Pleasantly confused, no complaints. PHYSICAL EXAMINATION VITAL SIGNS: Temperature 98.1, heart rate 77, blood pressure 160/72, respiratory rate 19, and O2 sat 96%. GENERAL: In no acute distress, alert. NECK: No JVD. No carotid bruits. CHEST: Clear to auscultation. CARDIOVASCULAR: Regular rate and rhythm. Normal S1 and S2. No S3 or S4. ABDOMEN: Soft. EXTREMITIES: No edema. Left second toe ulcer. CARDIOVASCULAR MEDICATIONS: Reviewed. Metoprolol, aspirin, clopidogrel, atorvastatin, Zosyn, and vancomycin. STUDIES: Reviewed. Creatinine is 0.9. Hemoglobin 9.2, platelets 396,000, and white blood cells 10. Normal transaminases. ASSESSMENT 1. Peripheral vascular disease, status post left femoropopliteal and left posterior tibial revascularization. 2. Diabetes mellitus. 3. Hypertension. 4. Dementia. 5. Dyslipidemia. RECOMMENDATIONS 1. Continue current cardiovascular medications. 2. Monitor wound healing. Depending on results and as needed, can consider staged left anterior tibial retrograde pedal revascularization if healing is suboptimal. However, full plantar arch observed posterior tibial flow post revascularization. Job#: [id number] CF
--- NOTE | 2018-07-07 07:07 | NUR ---
Discharge summary: A/P: 87yoM LEft foot 2nd toe infection- r/o osteomyelitis; vasc w-up; abx; sed rate; Left foot 2nd toe DFU Sepsis - POA Physical deconditioning Malaise/Fatigue - PT DM2- lipid/hba1c HTN meds HLD statin Dementia Memantine Constipation bowel regimen Severe cervical DDD PT Diastolic CHF chr - monitor Urinary retention - Flomax HAP right- zosyn/vanco Prop: Pepcid/Heparin Dispo d/w daughter at bedside; MRI to r/o osteomyelitis; cardiovasc consult for vasc w-up. 06/22 w-up anemia; angio pending; MRI pending; 06/23 leukocytosis resolved; sed rate 95. f/u BMP. 2/2 s/p Left fem pop THEO. control BP. 2/3 vancomycin therapeutic; cont iv abx; 2/4 f/u MBS; check lab;s d/c home conditon; stable f/u pcp 1 week cardiology 2 weeks d/c time>35mins Joaquin Cao MD,PhD.
== END 2018-06-27 14:01 | disposition home health service (06) | DRG 853 ==
LOC: ER 09:59 → ERHOLD 12:01 → MED/SURG2 18:32
PROVIDERS: ADMIT Internal Medicine; ATTEND Internal Medicine
PROC: 047L3Z1 Dilation of Left Femoral Artery using Drug-Coated Balloon, Percutaneous Approach (ICD-10-PCS; principal; 2018-06-26)
PROC: 047S3Z1 Dilation of Left Posterior Tibial Artery using Drug-Coated Balloon, Percutaneous Approach (ICD-10-PCS; 2018-06-26)
PROC: 047N3Z1 Dilation of Left Popliteal Artery using Drug-Coated Balloon, Percutaneous Approach (ICD-10-PCS; 2018-06-26)
PROC: [UNRECOGNIZED PROCEDURE] (2018-06-26)
PROC: 047N3ZZ Dilation of Left Popliteal Artery, Percutaneous Approach (ICD-10-PCS; 2018-06-26)
PROC: 047Q3ZZ Dilation of Left Anterior Tibial Artery, Percutaneous Approach (ICD-10-PCS; 2018-06-26)
PROC: B41D1ZZ Fluoroscopy of Aorta and Bilateral Lower Extremity Arteries using Low Osmolar Contrast (ICD-10-PCS; 2018-06-26)
DX: A41.9 Sepsis, unspecified organism (principal); J18.9 Pneumonia, unspecified organism; M86.8X7 Other osteomyelitis, ankle and foot; I50.32 Chronic diastolic (congestive) heart failure; F03.91 Unspecified dementia, unspecified severity, with behavioral disturbance; L03.116 Cellulitis of left lower limb; E11.69 Type 2 diabetes mellitus with other specified complication; Z79.4 Long term (current) use of insulin; E78.5 Hyperlipidemia, unspecified; I11.0 Hypertensive heart disease with heart failure; M50.30 Other cervical disc degeneration, unspecified cervical region; R33.9 Retention of urine, unspecified; K59.00 Constipation, unspecified; F03.90 Unspecified dementia, unspecified severity, without behavioral disturbance, psychotic disturbance, mood disturbance, and anxiety; E11.621 Type 2 diabetes mellitus with foot ulcer; L97.529 Non-pressure chronic ulcer of other part of left foot with unspecified severity; E11.51 Type 2 diabetes mellitus with diabetic peripheral angiopathy without gangrene; Y95 Nosocomial condition; I73.9 Peripheral vascular disease, unspecified; D64.9 Anemia, unspecified
CPT/HCPCS: 36247; 36415; 37224; 37232; 71045; 74230; 75625; 75716; 80048; 80053; 80061; 80202; 81001; 82550; 82553; 82948; 83036; 83518; 83605; 83735; 84484; 85025; 85610; 85651; 85730; 87040; 87070; 87086; 87400; 93925; 94640; 96365; 97139; 99284; C1725; C1769; C1887; J0456; J1644; J1650; J2001; J2250; J2543; J3370; J7030; J7799; Q9967

== ENCOUNTER → 2019-05-07 | Outpatient (CLI) | payer MEDICARE ==
[~2019-05-07] MED LIST: ASPIRIN EC81 MG PO; Atorvastatin PO; CIPRO500 MG PO; COLACE100 M1 PO; DIOVAN160 MG PO; FAMOTIDINE20 MG PO; FLOMAX0.4 MG PO; LOPRESSOR25 MG PO; MINOCYCLINE HCL50 MG PO; NAMENDA10 MG; PLAVIX75 MG PO; RISPERIDONE0.5 MG PO; SENOKOT8.6 MG PO; SODIUM CHLORIDE1 GM PO; TRAZODONE HCL50 MG PO; TYLENOL325 MG PO; ULTRAM50 MG PO
--- NOTE | 2019-05-07 12:58 | Diagnostic Imaging Report ---
MRI BRAIN WO HISTORY: Memory loss, Alzheimer's disease COMPARISON: MRI of the brain 09/28/2017 TECHNIQUE: Axial T2, multiplanar 3-D T1, axial T2/FLAIR, axial gradient echo (or susceptibility weighted), and axial diffusion weighted MR images of the brain were obtained without contrast. Motion artifacts obscure some details. DISCUSSION: Scalp/bone marrow: Unremarkable. Brain sulci: Prominent, especially along the mesial temporal lobes. Ventricles: Compensatory dilatation. Extra-axial spaces: No masses or fluid collections. Parenchyma: Scattered T2/FLAIR hyperintense foci throughout the supratentorial white matter are likely chronic microvascular ischemic changes. Otherwise, no mass, hemorrhage, or acute vascular insults. Vessels: Normal flow voids in major arteries and veins. Sellar/Suprasellar region: No abnormalities. 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 IMPRESSION: 1. No acute intracranial abnormalities. No significant change compared to MRI of the brain dated 09/28/2017. 2. Mild supratentorial chronic microvascular ischemic change. 3. Generalized cerebral volume loss with slight predominance along the bilateral mesial temporal lobes. Signed by: Dr. Blake Rajan M.D. on 05/07/2019 12:54 PM
== END ==
LOC: MRI 10:33
PROVIDERS: ATTEND Emergency Medicine
DX: G30.1 Alzheimer's disease with late onset (principal)
CPT/HCPCS: 70551

== ENCOUNTER 2019-10-09 12:45 | Inpatient (IN) | payer MEDICARE, OTHER ==
[~2019-10-09] VITALS: Ht 154.9 cm; Wt 54.6 kg
--- OUTSIDE RECORDS SUMMARY | 2019-10-09 12:48 | XMS REPORT | Clinical Summary ---
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
--- OUTSIDE RECORDS SUMMARY | 2019-10-09 12:49 | XMS REPORT ---
Author Author [facility] t Organization [facility] Address [address] [place] [id number] Phone Unavailable Care Team Providers Care Advertising Copy Writer Name Role Phone JOSIE VAZQUEZ MD PCP JOSIE VAZQUEZ Attphys Unavailable AGA HOPSON Attphyrodger Unavailable JOAQUIN YUNG Attphys Unavailable AGA HOPSON Admphys Unavailable JOAQUIN YUNG Admjerod Unavailable Payers Payer Name Policy Type Policy Number Effective Date Expiration Date Rodger jaime [facility] Medicare Complete [id number] 2017 00:00:00 [facility] Medicare Complete [id number] 2017 00:00:00 [facility] Problems Condition Name Condition Details Condition Category Status Onset Date Resolution Date Last Treatment Date Treating Clinician Comments Source Cellulitis Cellulitis Problem Active [facility] Dementia Dementia Problem Active [facility] 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 [facility] Pneumonia Pneumonia Problem Active [facility] Allergies, Adverse Reactions, Alerts Allergy Name Allergy Type Status Severity Reaction(s) Onset Date Inacti ve Date Treating Clinician Comments Source No Known Allergies DA Active U 2018-05-17 00:00:00 [facility] No Known Allergies DA Active U 2017-12-12 00:00:00 [facility] Social History Social Habit Start Date Stop Date Quantity Comments Source Sex Assigned At Adolfo Huynh Alcohol intake 2017-09-26 00:00:00 2017-09-26 00:00:00 Current non-drinker of alcohol (finding) Donald Huynh Smoking Status Start Date Stop Date Source Never smoker Donald Kimis elie Medications Ordered Medication Name Filled Medication Name Start Date Stop Da te Current Medication? Ordering Clinician Indication Dosage Frequency Signature (SIG) Comments Components Source Aspirin (Aspirin Ec) 81 Mg Tablet. Aspirin (Aspirin Ec) 81 Mg Tablet. 2018-06-27 00:00:00 Yes Joaquin Yung Md 81 Daily [facility] Atorvastatin 40 Mg Tab Atorvastatin 40 Mg Tab 2018-06-27 00:00:00 Yes Joaquin Yung Md 40 Daily [facility] Ciprofloxacin Hcl (Cipro) 500 Mg Tablet Ciprofloxacin Hcl (C ipro) 500 Mg Tablet 2018-06-27 00:00:00 Yes Joaquin Yung Md 500 Every 12 H ours [facility] Clopidogrel Bisulfate (Plavix) 75 Mg Tablet Clopidogre l Bisulfate (Plavix) 75 Mg Tablet 2018-06-27 00:00:00 Yes Joaquin Yung Md 75 Daily [facility] Docusate Sodium (Colace) 100 Mg Capsule Docusate Sodium (Col nena) 100 Mg Capsule 2018-06-27 00:00:00 Yes Joaquin Yung Md 100 Daily [facility] Metoprolol Tartrate (Lopressor) 25 Mg Tab Metoprolol T artrate (Lopressor) 25 Mg Tab 2018-06-27 00:00:00 Yes Joaquin Yung Md 25 Twice A D ay [facility] Minocycline Hcl 50 Mg Capsule Minocycline Hcl 50 Mg Capsule 2018 00:00:00 Yes Joaquin Yung Md 100 Twice A Day [facility] Sennosides (Senokot) 8.6 Mg Tablet Sennosides (Senokot) 8.6 Mg Tablet 2018-06-27 00:00:00 Yes Joaquin Yung Md 17.2 Twice A Day [facility] metFORMIN (GLUCOPHAGE) 500 mg tablet 2017-09-26 13:59:56 Ye s 500mg Q.5D Take 500 mg by mouth 2 (two) times a day with meals. [facility] lisinopril (PRINIVIL,ZESTRIL) 10 mg tablet 2017-09-26 13:59:56 Yes 10mg QD Take 10 mg by mouth daily. [facility] traMADol (ULTRAM) 50 mg tablet 2017-08-23 00:00:00 Yes TK ONE T PO Q 8 H PRN P WF [facility] Acetaminophen (Tylenol*) 325 Mg Tablet Acetaminophen (Tylenol*) 325 Mg Tablet Yes 325 Every 6 Hours [facility] Famotidine 20 Mg Tab Famotidine 20 Mg Tab Yes 20 Daily [facility] Memantine Hcl (Namenda) 10 Mg Tablet Memantine Hcl (Namenda) 10 Mg Tablet Yes 5 Daily [facility] Risperidone 0.5 Mg Tablet Risperidone 0.5 Mg Tablet Yes .25 Daily [facility] Sodium Chloride 1 Gm Tab Sodium Chloride 1 Gm Tab Yes 1 Twice A Day [facility] Tamsulosin Hcl (Flomax*) 0.4 Mg Cap Tamsulosin Hcl (Flomax*) 0.4 Mg C ap Yes .4 Daily [facility] Tramadol Hcl (Ultram) 50 Mg Tablet Tramadol Hcl (Ultram) 50 Mg Tablet Yes 50 Daily [facility] Trazodone Hcl 50 Mg Tablet Trazodone Hcl 50 Mg Tablet Yes 50 Bedtime [facility] Valsartan (Diovan) 160 Mg Tab Valsartan (Diovan) 160 Mg Tab Yes 320 Daily [facility] Procedures Procedure Date / Time Performed Performing Clinician Sour e Computed tomography of abdomen and pelvis without then with contrast 2018-07-06 00:00:00 ALESSANDRO RAMIREZ [facility] DILATION OF L FEM ART USING DRUG BLLN, PERC APPROACH 2018-06 00:00:00 VALORIE BEAN [facility] DILATION OF L POST TIB ART USING DRUG BLLN, PERC APPROACH 20 11-07-03 00:00:00 VALORIE BEAN [facility] DILATION OF L POPL ART USING DRUG BLLN, PERC APPROACH 06-26 00:00:00 VALORIE BEAN [facility] DILATION OF L FEM ART, BIFURC, WITH DRUG-ELUT, PERC AP PROACH 2018-06-26 00:00:00 VALORIE BEAN [facility] DILATION OF LEFT POPLITEAL ARTERY, PERCUTANEOUS APPROACH 201 01-23-04 00:00:00 VALORIE BEAN [facility] DILATION OF LEFT ANTERIOR TIBIAL ARTERY, PERC APPROACH 06-26 00:00:00 VALORIE BEAN [facility] FLUOROSCOPY OF AORTA, BI LE ART USING L OSM CONTRAST 2018-06 00:00:00 WILFREDO LAWTON [facility] Magnetic resonance imaging of brain without contrast 2017-09 00:00:00 JOSIE VAZQUEZ [facility] Plan of Care Planned Activity Planned Date Details Comments Source Future Scheduled Test 2019-12-22 00:00:00 INFLUENZA VACCINE [code = INFLUENZA VACCINE] [facility] Future Scheduled Test 1995-09-14 00:00:00 65+ PNEUMOCOCCAL V ACCINE (1 of 2 - PCV13) [code = 65+ PNEUMOCOCCAL VACCINE (1 of 2 - PCV13)] [facility] Future Scheduled Test 1980 00:00:00 SHINGLES VACCINES (#1) [code = SHINGLES VACCINES (#1)] [facility] Encounters Start Date/Time End Date/Time En[facility] ID Source 2018-06-30 12:46:00 2018-06-30 12:46:00 Admitted Inpatient 1 AGA [facility] [id number] [facility] 2018-06-20 12:01:00 2018-06-27 14:01:00 Discharged Inpatient 1 JOAQUIN YUNG [facility] [id number] [facility] 2017-09-28 10:04:00 2017-09-28 10:04:00 Registered Clinic 3 JOSIE VAZQUEZ [facility] [id number] [facility] Results Test Description Test Time Test Comments Results Result Comments Source MRI BRAIN WO 2019-05-07 12:51:00 [facility] [address] [address] Patient Name: ILIR LAWRENCE MR #: [id number] : 1930 Age/Sex: 88/M Req #: [id number] Adm Physician: Ordered by: JOSIE VAZQUEZ MD Report #: [id number] Location: MRI Room/Bed: Procedure: [id number] MRI/MRI BRAIN WO Exam Date: Exam Time: REPORT STATUS: Signed MRI BRAIN WO HISTORY: Memory loss, Alzheimer's disease COMPARISON: MRI of the brain 09/28/2017 TECHNIQUE: Axial T2, multiplanar 3-D T1, axial T2/FLAIR, axial gradient echo (or susceptibility weighted), and axial diffusion weighted MR images of the brain were obtained without contrast. Motion artifacts obscure some details. DISCUSSION: Scalp/bone marrow: Unremarkable. Brain sulci: Prominent, especially along the mesial temporal lobes. Ventricles: Compensatory dilatation. Extra-axial spaces: No masses or fluid collections. Parenchyma: Scattered T2/FLAIR hyperintense foci throughout the supratentorial white matter are likely chronic microvascular ischemic changes. Otherwise, no mass, hemorrhage, or acute vascular insults. Vessels: Normal flow voids in major arteries and veins. Sellar/Suprasellar region: No abnormalities. 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 IMPRESSION: 1. No acute intracranial abnormalities. No significant change compared to MRI of the brain dated 09/28/2017. 2. Mild supratentorial chronic microvascular ischemic change. 3. Generalized cerebral volume loss with slight predominance along the bilateral mesial temporal lobes. Signed by: Dr. Blake Rajan M.D. on 05/07/2019 12:54 PM Dictated By: BLAKE RAJAN MD 1254 Transcribed By: ARTURO on 05/07/19 1254 COPY TO: JOSIE VAZQUEZ MD GLUBED 2018-09-05 13:00:00 Test Item GLUBED (test code = GLUBED) 115 mg/dL 74-106 H Performed by certified decker operator at [facility] [id number] 10:46:00* Test Item Value Reference Range Interpretation Comments GLUBED (test code = GLUBED) 239 mg/dL 74-106 H Performed by certified decker operator at [facility] [id number] 10:45:00* Test Item Value Reference Range Interpretation Comments GLUBED (test code = GLUBED) 165 mg/dL 74-106 H Performed by certified decker operator at [facility] [id number] 21:40:00* Test Item Value Reference Range Interpretation Comments GLUBED (test code = GLUBED) 262 mg/dL 74-106 H [facility]~ [id number] 18:24:00* Test Item Value Reference Range Interpretation Comments GLUBED (test code = GLUBED) 308 mg/dL 74-106 H [facility] CBC W/AUTO [id number] 15:43:00* Test Item Value Reference Range Interpretation Comments WHITE BLOOD CELL (test code = WBC) 8.0 K/mm3 4.5-12.5 N RED BLOOD CELL (test code = RBC) 3.95 mill/mm3 4.0-5.8 L HEMOGLOBIN (test code = HGB) 10.5 gram/dL 13.0-17.5 L HEMATOCRIT (test code = HCT) 35.2 % 42.0-52.0 L MEAN CELL VOLUME (test code = MCV) 89.1 fL 80-98 N MEAN CELL HGB (test code = MCH) 26.6 picogram 27.0-33.0 L MEAN CELL HGB CONCETRATION (test code = MCHC) 29.8 gram/dL 33.0-36. 0 L RED CELL DISTRIBUTION WIDTH (test code = RDW) 13.9 % 11.6-16. 2 N RED CELL DISTRIBUTION WIDTH SD (test code = RDW-SD) 45.1 fL 37 .0-51.0 N PLATELET COUNT (test code = PLT) 285 K/mm3 150-450 N MEAN PLATELET VOLUME (test code = MPV) 11.3 fL 6.7-11.0 H NEUTROPHIL % (test code = NT%) 79.2 % 39.0-69.0 H IMMATURE GRANULOCYTE % (test code = IG%) 0.4 % 0.0-5.0 N LYMPHOCYTE % (test code = LY%) 16.7 % 25.0-55.0 L MONOCYTE % (test code = MO%) 3.3 % 0.0-10.0 N EOSINOPHIL % (test code = EO%) 0.0 % 0.0-5.0 N BASOPHIL % (test code = BA%) 0.4 % 0.0-1.0 N NUCLEATED RBC % (test code = NRBC%) 0.0 % 0-0 N NEUTROPHIL # (test code = NT#) 6.31 K/mm3 1.8-7.7 N IMMATURE GRANULOCYTE # (test code = IG#) 0.03 x10 3/uL 0-0.03 N LYMPHOCYTE # (test code = LY#) 1.33 K/mm3 1.0-5.0 N MONOCYTE # (test code = MO#) 0.26 K/mm3 0-0.8 N EOSINOPHIL # (test code = EO#) 0.00 K/mm3 0.0-0.5 N BASOPHIL # (test code = BA#) 0.03 K/mm3 0.0-0.2 N NUCLEATED RBC # (test code = NRBC#) 0.00 K/mm3 0.0-0.1 N MANUAL DIFF REQUIRED (test code = MDIFF) NO, ONLY SCAN NEEDED DIFFERENTIAL [id number] 15:43:00* Test Item Value Reference Range Interpretation Comments STAIN ACCEPTABILITY (test code = STN ACCEPTABLE) STAIN ACCEPTABLE HYPOCHROMIA (test code = HYPO) 1+ POIKILOCYTOSIS (test code = POIK) 1+ ELLIPTOCYTES (test code = ELL) 1+ CRENATED CELLS (test code = CREN) 1+ PLATELET ESTIMATE (test code = PLTEST) ADEQUATE PLATELET MORPHOLOGY (test code = PLTMORPH) NORMAL [id number] 13:48:00* Test Item Value Reference Range Interpretation Comments GLUBED (test code = GLUBED) 305 mg/dL 74-106 H Performed by certified decker operator at [facility] BASIC METABOLIC [id number] 11:53:00* Test Item Value Reference Range Interpretation Comments SODIUM (test code = NA) 140 mmol/L 136-145 N POTASSIUM (test code = K) 4.0 mmol/L 3.5-5.1 N CHLORIDE (test code = CL) 107.0 mmol/L 98-107 N CARBON DIOXIDE (test code = CO2) 25.0 mmol/L 21-32 N ANION GAP (test code = GAP) 12.0 10-20 N GLUCOSE (test code = GLU) 330 mg/dL 74-106 H BLOOD UREA NITROGEN (test code = BUN) 31 mg/dL 7-18 H GLOMERULAR FILTRATION RATE (test code = GFR) > 60 mL/min >=60 Estimated GFR by using Modified MDRD formula.Chronic kidney disease is defined as either kidney damageor GFR <60 mL/min/1.73 m2 for >3 months. CREATININE (test code = CREAT) 1.00 mg/dL 0.7-1.3 N BUN/CREATININE RATIO (test code = BUN/CREA) 31.0 10-20 H CALCIUM (test code = CA) 9.2 mg/dL 8.5-10.1 N CBC W/AUTO [id number] 11:26:00* Test Item Value Reference Range Interpretation Comments WHITE BLOOD CELL (test code = WBC) 8.0 K/mm3 4.5-12.5 N RED BLOOD CELL (test code = RBC) 3.95 mill/mm3 4.0-5.8 L HEMOGLOBIN (test code = HGB) 10.5 gram/dL 13.0-17.5 L HEMATOCRIT (test code = HCT) 35.2 % 42.0-52.0 L MEAN CELL VOLUME (test code = MCV) 89.1 fL 80-98 N MEAN CELL HGB (test code = MCH) 26.6 picogram 27.0-33.0 L MEAN CELL HGB CONCETRATION (test code = MCHC) 29.8 gram/dL 33.0-36. 0 L RED CELL DISTRIBUTION WIDTH (test code = RDW) 13.9 % 11.6-16. 2 N RED CELL DISTRIBUTION WIDTH SD (test code = RDW-SD) 45.1 fL 37 .0-51.0 N PLATELET COUNT (test code = PLT) 285 K/mm3 150-450 N MEAN PLATELET VOLUME (test code = MPV) 11.3 fL 6.7-11.0 H NEUTROPHIL % (test code = NT%) 79.2 % 39.0-69.0 H IMMATURE GRANULOCYTE % (test code = IG%) 0.4 % 0.0-5.0 N LYMPHOCYTE % (test code = LY%) 16.7 % 25.0-55.0 L MONOCYTE % (test code = MO%) 3.3 % 0.0-10.0 N EOSINOPHIL % (test code = EO%) 0.0 % 0.0-5.0 N BASOPHIL % (test code = BA%) 0.4 % 0.0-1.0 N NUCLEATED RBC % (test code = NRBC%) 0.0 % 0-0 N NEUTROPHIL # (test code = NT#) 6.31 K/mm3 1.8-7.7 N IMMATURE GRANULOCYTE # (test code = IG#) 0.03 x10 3/uL 0-0.03 N LYMPHOCYTE # (test code = LY#) 1.33 K/mm3 1.0-5.0 N MONOCYTE # (test code = MO#) 0.26 K/mm3 0-0.8 N EOSINOPHIL # (test code = EO#) 0.00 K/mm3 0.0-0.5 N BASOPHIL # (test code = BA#) 0.03 K/mm3 0.0-0.2 N NUCLEATED RBC # (test code = NRBC#) 0.00 K/mm3 0.0-0.1 N MANUAL DIFF REQUIRED (test code = MDIFF) NO, ONLY SCAN NEEDED DIFFERENTIAL [id number] 11:26:00* Test Item Value Reference Range Interpretation Comments STAIN ACCEPTABILITY (test code = STN ACCEPTABLE) CABOT RINGS (test code = CAB) MORPHOLOGY COMMENT (test code = MOC) PLATELET ESTIMATE (test code = PLTEST) PLATELET MORPHOLOGY (test code = PLTMORPH) CBC W/AUTO [id number] 11:26:00* Test Item Value Reference Range Interpretation Comments WHITE BLOOD CELL (test code = WBC) 8.0 K/mm3 4.5-12.5 N RED BLOOD CELL (test code = RBC) 3.95 mill/mm3 4.0-5.8 L HEMOGLOBIN (test code = HGB) 10.5 gram/dL 13.0-17.5 L HEMATOCRIT (test code = HCT) 35.2 % 42.0-52.0 L MEAN CELL VOLUME (test code = MCV) 89.1 fL 80-98 N MEAN CELL HGB (test code = MCH) 26.6 picogram 27.0-33.0 L MEAN CELL HGB CONCETRATION (test code = MCHC) 29.8 gram/dL 33.0-36. 0 L RED CELL DISTRIBUTION WIDTH (test code = RDW) 13.9 % 11.6-16. 2 N RED CELL DISTRIBUTION WIDTH SD (test code = RDW-SD) 45.1 fL 37 .0-51.0 N PLATELET COUNT (test code = PLT) 285 K/mm3 150-450 N MEAN PLATELET VOLUME (test code = MPV) 11.3 fL 6.7-11.0 H NEUTROPHIL % (test code = NT%) 79.2 % 39.0-69.0 H IMMATURE GRANULOCYTE % (test code = IG%) 0.4 % 0.0-5.0 N LYMPHOCYTE % (test code = LY%) 16.7 % 25.0-55.0 L MONOCYTE % (test code = MO%) 3.3 % 0.0-10.0 N EOSINOPHIL % (test code = EO%) 0.0 % 0.0-5.0 N BASOPHIL % (test code = BA%) 0.4 % 0.0-1.0 N NUCLEATED RBC % (test code = NRBC%) 0.0 % 0-0 N NEUTROPHIL # (test code = NT#) 6.31 K/mm3 1.8-7.7 N IMMATURE GRANULOCYTE # (test code = IG#) 0.03 x10 3/uL 0-0.03 N LYMPHOCYTE # (test code = LY#) 1.33 K/mm3 1.0-5.0 N MONOCYTE # (test code = MO#) 0.26 K/mm3 0-0.8 N EOSINOPHIL # (test code = EO#) 0.00 K/mm3 0.0-0.5 N BASOPHIL # (test code = BA#) 0.03 K/mm3 0.0-0.2 N NUCLEATED RBC # (test code = NRBC#) 0.00 K/mm3 0.0-0.1 N MANUAL DIFF REQUIRED (test code = MDIFF) NO, ONLY SCAN NEEDED DIFFERENTIAL [id number] 11:26:00* Test Item Value Reference Range Interpretation Comments STAIN ACCEPTABILITY (test code = STN ACCEPTABLE) CABOT RINGS (test code = CAB) MORPHOLOGY COMMENT (test code = MOC) PLATELET ESTIMATE (test code = PLTEST) PLATELET MORPHOLOGY (test code = PLTMORPH) CBC W/AUTO [id number] 11:26:00* Test Item Value Reference Range Interpretation Comments WHITE BLOOD CELL (test code = WBC) 8.0 K/mm3 4.5-12.5 N RED BLOOD CELL (test code = RBC) 3.95 mill/mm3 4.0-5.8 L HEMOGLOBIN (test code = HGB) 10.5 gram/dL 13.0-17.5 L HEMATOCRIT (test code = HCT) 35.2 % 42.0-52.0 L MEAN CELL VOLUME (test code = MCV) 89.1 fL 80-98 N MEAN CELL HGB (test code = MCH) 26.6 picogram 27.0-33.0 L MEAN CELL HGB CONCETRATION (test code = MCHC) 29.8 gram/dL 33.0-36. 0 L RED CELL DISTRIBUTION WIDTH (test code = RDW) 13.9 % 11.6-16. 2 N RED CELL DISTRIBUTION WIDTH SD (test code = RDW-SD) 45.1 fL 37 .0-51.0 N PLATELET COUNT (test code = PLT) 285 K/mm3 150-450 N MEAN PLATELET VOLUME (test code = MPV) 11.3 fL 6.7-11.0 H NEUTROPHIL % (test code = NT%) 79.2 % 39.0-69.0 H IMMATURE GRANULOCYTE % (test code = IG%) 0.4 % 0.0-5.0 N LYMPHOCYTE % (test code = LY%) 16.7 % 25.0-55.0 L MONOCYTE % (test code = MO%) 3.3 % 0.0-10.0 N EOSINOPHIL % (test code = EO%) 0.0 % 0.0-5.0 N BASOPHIL % (test code = BA%) 0.4 % 0.0-1.0 N NUCLEATED RBC % (test code = NRBC%) 0.0 % 0-0 N NEUTROPHIL # (test code = NT#) 6.31 K/mm3 1.8-7.7 N IMMATURE GRANULOCYTE # (test code = IG#) 0.03 x10 3/uL 0-0.03 N LYMPHOCYTE # (test code = LY#) 1.33 K/mm3 1.0-5.0 N MONOCYTE # (test code = MO#) 0.26 K/mm3 0-0.8 N EOSINOPHIL # (test code = EO#) 0.00 K/mm3 0.0-0.5 N BASOPHIL # (test code = BA#) 0.03 K/mm3 0.0-0.2 N NUCLEATED RBC # (test code = NRBC#) 0.00 K/mm3 0.0-0.1 N MANUAL DIFF REQUIRED (test code = MDIFF) NO, ONLY SCAN NEEDED DIFFERENTIAL [id number] 11:26:00* Test Item Value Reference Range Interpretation Comments STAIN ACCEPTABILITY (test code = STN ACCEPTABLE) MORPHOLOGY COMMENT (test code = MOC) PLATELET ESTIMATE (test code = PLTEST) PLATELET MORPHOLOGY (test code = PLTMORPH) CBC W/AUTO [id number] 11:26:00* Test Item Value Reference Range Interpretation Comments WHITE BLOOD CELL (test code = WBC) 8.0 K/mm3 4.5-12.5 N RED BLOOD CELL (test code = RBC) 3.95 mill/mm3 4.0-5.8 L HEMOGLOBIN (test code = HGB) 10.5 gram/dL 13.0-17.5 L HEMATOCRIT (test code = HCT) 35.2 % 42.0-52.0 L MEAN CELL VOLUME (test code = MCV) 89.1 fL 80-98 N MEAN CELL HGB (test code = MCH) 26.6 picogram 27.0-33.0 L MEAN CELL HGB CONCETRATION (test code = MCHC) 29.8 gram/dL 33.0-36. 0 L RED CELL DISTRIBUTION WIDTH (test code = RDW) 13.9 % 11.6-16. 2 N RED CELL DISTRIBUTION WIDTH SD (test code = RDW-SD) 45.1 fL 37 .0-51.0 N PLATELET COUNT (test code = PLT) 285 K/mm3 150-450 N MEAN PLATELET VOLUME (test code = MPV) 11.3 fL 6.7-11.0 H NEUTROPHIL % (test code = NT%) 79.2 % 39.0-69.0 H IMMATURE GRANULOCYTE % (test code = IG%) 0.4 % 0.0-5.0 N LYMPHOCYTE % (test code = LY%) 16.7 % 25.0-55.0 L MONOCYTE % (test code = MO%) 3.3 % 0.0-10.0 N EOSINOPHIL % (test code = EO%) 0.0 % 0.0-5.0 N BASOPHIL % (test code = BA%) 0.4 % 0.0-1.0 N NUCLEATED RBC % (test code = NRBC%) 0.0 % 0-0 N NEUTROPHIL # (test code = NT#) 6.31 K/mm3 1.8-7.7 N IMMATURE GRANULOCYTE # (test code = IG#) 0.03 x10 3/uL 0-0.03 N LYMPHOCYTE # (test code = LY#) 1.33 K/mm3 1.0-5.0 N MONOCYTE # (test code = MO#) 0.26 K/mm3 0-0.8 N EOSINOPHIL # (test code = EO#) 0.00 K/mm3 0.0-0.5 N BASOPHIL # (test code = BA#) 0.03 K/mm3 0.0-0.2 N NUCLEATED RBC # (test code = NRBC#) 0.00 K/mm3 0.0-0.1 N MANUAL DIFF REQUIRED (test code = MDIFF) NO, ONLY SCAN NEEDED DIFFERENTIAL [id number] 11:26:00* Test Item Value Reference Range Interpretation Comments STAIN ACCEPTABILITY (test code = STN ACCEPTABLE) CABOT RINGS (test code = CAB) MORPHOLOGY COMMENT (test code = MOC) PLATELET ESTIMATE (test code = PLTEST) PLATELET MORPHOLOGY (test code = PLTMORPH) [id number] 09:09:00* Test Item Value Reference Range Interpretation Comments GLUBED (test code = GLUBED) 220 mg/dL 74-106 H Performed by certified decker operator at [facility] [id number] 23:45:00* Test Item Value Reference Range Interpretation Comments GLUBED (test code = GLUBED) 169 mg/dL 74-106 H Performed by certified decker operator at [facility] [id number] 17:12:00* Test Item Value Reference Range Interpretation Comments GLUBED (test code = GLUBED) 83 mg/dL 74-106 N Performed by certified decker operator at [facility] [id number] 15:08:00* Test Item Value Reference Range Interpretation Comments GLUBED (test code = GLUBED) 123 mg/dL 74-106 H Performed by certified decker operator at [facility] [id number] 09:14:00* Test Item Value Reference Range Interpretation Comments GLUBED (test code = GLUBED) 75 mg/dL 74-106 N Performed by certified decker operator at [facility] [id number] 20:44:00* Test Item Value Reference Range Interpretation Comments GLUBED (test code = GLUBED) 184 mg/dL 74-106 H Performed by certified decker operator at [facility] [id number] 18:00:00* Test Item Value Reference Range Interpretation Comments TROPONIN-I (test code = TROPI) <0.015 ng/mL 0-0.045 N COMMENTS TO HUMAN RESOURCES OFFICER: COLLECT 3 HOURS AFTER PREVIOUS [id number] 13:55:00* Test Item Value Reference Range Interpretation Comments GLUBED (test code = GLUBED) 148 mg/dL 74-106 H Performed by certified decker operator at [facility] [id number] 13:36:00* Test Item Value Reference Range Interpretation Comments TROPONIN-I (test code = TROPI) <0.015 ng/mL 0-0.045 N COMMENTS TO HUMAN RESOURCES OFFICER: COLLECT 3 HOURS AFTER PREVIOUS [id number] 13:15:00* Test Item Value Reference Range Interpretation Comments GLYCOSYLATED HEMOGLOBIN (HA1C) (test code = GLYHGB) 8.0 % HbA1 4. 8-6.0 H ESTIMATED AVERAGE GLUCOSE (test code = EAG) 183 MG/DL LIPID PROFILE (CORONARY RISK)2018-09-02 11:28:00* Test Item Value Reference Range Interpretation Comments TRIGLYCERIDES (test code = TRIG) 94 mg/dL 20-150 N CHOLESTEROL (test code = CHOL) 126 mg/dL 0-200 N CHOLESTEROL/HDL RATIO (test code = CHOLHDL) 2.0 RATIO 0-4.9 N RISK ASSOCIATED WITH CHOL/HDL RATIOS: Risk Male Female1/2 AVERAGE 3.43 3.27AVERAGE 4.97 4.442X AVERAGE 9.55 7.053X AVERAGE 23.39 11.04 REFERENCE VALUE IS RELATED TO RISK LEVELS ASRECOMMENDED BY THE [facility]. HEART, LUNG, AND BLOOD INST. HDL CHOLESTEROL (test code = HDL) 52 mg/dL 40-60 N LIPOPROTEIN LDL (test code = LDL) 62 mg/dL 100-129 L Reference Interval: mg/dL mmol/L Optimal <100 <2.6Near/above optimal 100-129 2.6- 3.3Borderline High 130-159 3.4-4.1High 160-189 4.1-4.9Very High >=190 >=4.9========= This LDL result is a direct measurement.========= B-TYPE NATRIURETIC [id number] 10:04:00* Test Item Value Reference Range Interpretation Comments B-TYPE NATRIURETIC PEPTIDE (test code = BNP) 27.05 pgram/mL 0-100 N BASIC METABOLIC [id number] 09:00:00* Test Item Value Reference Range Interpretation Comments SODIUM (test code = NA) 137 mmol/L 136-145 N POTASSIUM (test code = K) 4.4 mmol/L 3.5-5.1 N CHLORIDE (test code = CL) 104.0 mmol/L 98-107 N CARBON DIOXIDE (test code = CO2) 27.0 mmol/L 21-32 N ANION GAP (test code = GAP) 10.4 10-20 N GLUCOSE (test code = GLU) 104 mg/dL 74-106 N BLOOD UREA NITROGEN (test code = BUN) 34 mg/dL 7-18 H GLOMERULAR FILTRATION RATE (test code = GFR) 52 mL/min >=60 Estimated GFR by using Modified MDRD formula.Chronic kidney disease is defined as either kidney damageor GFR <60 mL/min/1.73 m2 for >3 months. CREATININE (test code = CREAT) 1.30 mg/dL 0.7-1.3 N BUN/CREATININE RATIO (test code = BUN/CREA) 26.2 10-20 H CALCIUM (test code = CA) 9.5 mg/dL 8.5-10.1 N [id number] 09:00:00* Test Item Value Reference Range Interpretation Comments TROPONIN-I (test code = TROPI) <0.015 ng/mL 0-0.045 N CBC W/O [id number] 08:46:00* Test Item Value Reference Range Interpretation Comments WHITE BLOOD CELL (test code = WBC) 10.0 K/mm3 4.5-12.5 N RED BLOOD CELL (test code = RBC) 4.19 mill/mm3 4.0-5.8 N HEMOGLOBIN (test code = HGB) 11.6 gram/dL 13.0-17.5 L HEMATOCRIT (test code = HCT) 37.5 % 42.0-52.0 L MEAN CELL VOLUME (test code = MCV) 89.5 fL 80-98 N MEAN CELL HGB (test code = MCH) 27.7 picogram 27.0-33.0 N MEAN CELL HGB CONCETRATION (test code = MCHC) 30.9 gram/dL 33.0-36. 0 L RED CELL DISTRIBUTION WIDTH (test code = RDW) 13.9 % 11.6-16. 2 N PLATELET COUNT (test code = PLT) 305 K/mm3 150-450 N MEAN PLATELET VOLUME (test code = MPV) 11.2 fL 6.7-11.0 H - XR CHEST 1 [id number] 08:12:00 FAX: August Mercado MD [phone] [place]: St: REG Name: ILIR VO [facility] : 09/13/18 31 Age/S: 87/M [address] [facility] Unit #: [id number] Loc: [place] [address] Phys: August Mercado MD Acct: [id number] Dis Date: Status: REG ER PHONE #: [phone] Exam Date: 09/02/2018 0750 FAX #: [phone] Reason: Shortness of Breath EXAMS: CPT CODE: [id number] XR CHEST 1 V 38454 REASON FOR EXAM: Shortness of Breath EXAM ORDER DATE: 09/02/2018 7:03 AM Ordering M.Yessica.: August Mercado MD PROCEDURE: - XR CHEST 1 V COMPARISON: 05/17/2018 FINDINGS: Portable AP frontal view of the chest obtained at 7:47 AM shows clear lungs without evidence of consoli dation. There is no evidence of effusion. The heart size is within normal limits. Pulmonary vasculatures are unremarkable. IMPRESSI ON: Hypoaerated lungs with atelectasis of the bases Electronically S igned by Mehrdad Palencia on 09/02/2018 at 0812 Reported and signed by: Gaurav Palencia M.D. CC: August Mercado MD Technologist: SIGRID TORREZ(R) Trnscrd Date/Time/By: 09/02/2018 (811) : By: AamirVTL Orig Print D/T: S: 09/02/2018 (16) PAGE 1 Signed Report Bedside Ifsbzyz6381-24-08 15:53:00* Test Item Value Reference Range Interpretation Comments Bedside Glucose (test code = 91377-9) 260 70-120 Meter ID: [id number] [facility] Wtflhy2302-14-21 13:20:00* Test Item Value Reference Range Interpretation Comments Vancomycin Level Trough (test code = 4092-3) 10.7 5.0-10.0 Results repeated and called to TORRI DEMPSEY at 1319 on 07/10/18 by MATTHEW Mckeon Read back and verified.[facility] 2018-07-10 06:24:00* Test Item Value Reference Range Interpretation Comments Sodium Level (test code = 2951-2) 139 136-145 [facility]Potassium Mhmmb3855-08-15 06:24:00* Test Item Value Reference Range Interpretation Comments Potassium Level (test code = 2823-3) 3.2 3.5-5.1 [facility] PasoChloride Inedi1144-53-90 06:24:00* Test Item Value Reference Range Interpretation Comments Chloride Level (test code = 2075-0) 105 98-107 [facility] PasoCarbon Dioxide Sgsbs7684-01-34 06:24:00* Test Item Value Reference Range Interpretation Comments Carbon Dioxide Level (test code = 2028-9) 22 22-29 [facility] PasoAnion Iyg9460-50-76 06:24:00* Test Item Value Reference Range Interpretation Comments Anion Gap (test code = 82782-4) 15.2 8-16 [facility] PasoBlood Urea Meixnbdh1170-57-71 06:24:00* Test Item Value Reference Range Interpretation Comments Blood Urea Nitrogen (test code = 3094-0) 15 7-26 [facility] PasoCreatinine2019-02-18 06:24:00* Test Item Value Reference Range Interpretation Comments Creatinine (test code = 2160-0) 0.79 0.72-1.25 [facility] PasoBUN/Creatinine Rnpja8381-44-62 06:24:00* Test Item Value Reference Range Interpretation Comments BUN/Creatinine Ratio (test code = 3097-3) 19 6-25 [facility] PasoEstimat Glomerular Filtration Rate 2018-07-10 06:24:00* Test Item Value Reference Range Interpretation Comments Estimat Glomerular Filtration Rate (test code = 203458064) > 60 >60 Ranges were taken from the National Kidney Disease Education Program and the [facility] Kidney Foundation literature.Reference ranges:60 or greater: Kegyzt75-68 ( for 3 consecutive months): Chronic kidney disease 15 or less: Kidney failureUniversity Medical Center of El PasoGlucose Gtkfo1886-14-29 06:24:00* Test Item Value Reference Range Interpretation Comments Glucose Level (test code = SLS2028) 81 74-118 [facility] PasoCalcium Babvg7497-43-18 06:24:00* Test Item Value Reference Range Interpretation Comments Calcium Level (test code = 63039-1) 8.8 8.4-10.2 [facility] PasoWhite Blood Hstvs0990-71-47 06:02:00* Test Item Value Reference Range Interpretation Comments White Blood Count (test code = 6690-2) 7.33 4.8-10.8 [facility] PasoRed Blood Cornw1927-97-38 06:02:00* Test Item Value Reference Range Interpretation Comments Red Blood Count (test code = 789-8) 3.23 4.3-5.7 [facility] PasoHemoglobin2019-02-18 06:02:00* Test Item Value Reference Range Interpretation Comments Hemoglobin (test code = 55159-5) 9.2 14.0-18.0 [facility] PasoHematocrit2019-02-18 06:02:00* Test Item Value Reference Range Interpretation Comments Hematocrit (test code = 4544-3) 28.9 38.2-49.6 [facility] PasoMean Corpuscular Owlbfm1690-10-56 06:02:00* Test Item Value Reference Range Interpretation Comments Mean Corpuscular Volume (test code = 787-2) 89.5 81-99 [facility] PasoMean Corpuscular Aquaexfywb3705-48-53 06:02:00* Test Item Value Reference Range Interpretation Comments Mean Corpuscular Hemoglobin (test code = 785-6) 28.5 28-32 [facility] PasoMean Corpuscular Hemoglobin Concent 2018-07-10 06:02:00* Test Item Value Reference Range Interpretation Comments Mean Corpuscular Hemoglobin Concent (test code = 786-4) 31.8 31-35 [facility] PasoRed Cell Distribution Kiwjf4867-33-71 06:02:00* Test Item Value Reference Range Interpretation Comments Red Cell Distribution Width (test code = 01776-0) 13.8 11.7 -14.4 [facility] PasoPlatelet Epjor2572-05-45 06:02:00* Test Item Value Reference Range Interpretation Comments Platelet Count (test code = 777-3) 354 140-360 [facility] PasoNeutrophils (%) (Auto)2018-07-10 06:02:00 * Test Item Value Reference Range Interpretation Comments Neutrophils (%) (Auto) (test code = 46627-2) 62.3 38.7-80.0 [facility] PasoLymphocytes (%) (Auto)2018-07-10 06:02:00 * Test Item Value Reference Range Interpretation Comments Lymphocytes (%) (Auto) (test code = 736-9) 22.1 18.0-39.1 [facility] PasoMonocytes (%) (Auto)2018-07-10 06:02:00* Test Item Value Reference Range Interpretation Comments Monocytes (%) (Auto) (test code = 5905-5) 10.4 4.4-11.3 [facility] PasoEosinophils (%) (Auto)2018-07-10 06:02:00 * Test Item Value Reference Range Interpretation Comments Eosinophils (%) (Auto) (test code = 713-8) 4.2 0.0-6.0 [facility] PasoBasophils (%) (Auto)2018-07-10 06:02:00* Test Item Value Reference Range Interpretation Comments Basophils (%) (Auto) (test code = 706-2) 0.7 0.0-1.0 [facility] PasoIM GRANULOCYTES %2018-07-10 06:02:00* Test Item Value Reference Range Interpretation Comments IM GRANULOCYTES % (test code = IM GRANULOCYTES %) 0.3 0.0- 1.0 [facility] PasoNeutrophils # (Auto)2018-07-10 06:02:00* Test Item Value Reference Range Interpretation Comments Neutrophils # (Auto) (test code = 751-8) 4.6 2.1-6.9 [facility] PasoLymphocytes # (Auto)2018-07-10 06:02:00* Test Item Value Reference Range Interpretation Comments Lymphocytes # (Auto) (test code = 13333-5) 1.6 1.0-3.2 [facility] PasoMonocytes # (Auto)2018-07-10 06:02:00* Test Item Value Reference Range Interpretation Comments Monocytes # (Auto) (test code = 742-7) 0.8 0.2-0.8 [facility] PasoEosinophils # (Auto)2018-07-10 06:02:00* Test Item Value Reference Range Interpretation Comments Eosinophils # (Auto) (test code = 711-2) 0.3 0.0-0.4 [facility] PasoBasophils # (Auto)2018-07-10 06:02:00* Test Item Value Reference Range Interpretation Comments Basophils # (Auto) (test code = 704-7) 0.1 0.0-0.1 [facility] PasoAbsolute Immature Granulocyte (auto 2018-07-10 06:02:00* Test Item Value Reference Range Interpretation Comments Absolute Immature Granulocyte (auto (darren t code = Absolute Immature Granulocyte (auto) 0.02 0-0.1 [facility] PasoCT ABDOMEN/PELVIS WAN6022-71-74 13:52:00 [facility] [address] [place] [address] Patient Name: ILIR LAWRENCE MR #: [id number] : 1930 Age/Sex: 87/M Req #: [id number] Adm Physician: AGA HOPSON MD Ordered by: ALESSANDRO RAMIREZ MD Report #: [id number] Location: MED/SURG3 Room/Bed: [facility]-1 Procedure: [id number] CT/C T ABDOMEN/PELVIS WOW Exam Date: Exam Time: REPORT STATUS: Signed EXAMINATION: CT of the abdomen and pelvis with and without contrast. TECHNIQUE: Spiral CT images of the abdomen and pelvis were performed from the lung bases to the le sser trochanters before and after the intravenous administration of 100 cc Iso jaylin-370. Hematuria protocol was performed. Oral water was also administered. C oronal and sagittal reformatted images were obtained. COMPARISON: None. CLINICAL HISTORY:Hematuria protocol, evaluate Greene catheter positioning DISCUSSION: Evaluation is limited as the large bowel remains opacified by barium ingested for modified barium swallow performed 06/26/2018. ABDOMEN/P ZAN: LOWER THORAX:Bandlike atelectasis in the bilateral lower lobes, bruno g with groundglass opacities. No pleural or pericardial effusion. 5 mm lingula r opacity likely atelectasis. HEPATOBILIARY: No focal hepatic lesions. N o intra-or extrahepatic biliary ductal dilation. The gallbladder is normal. SPLEEN: No splenomegaly. PANCREAS: Multiple coarse prostatic parench ymal calcifications compatible with chronic pancreatitis. No focal mass lesion . ADRENALS: No adrenal nodules. KIDNEYS/URETERS: Precontrast images s how a punctate calcification in the left renal hilum, shown to be vascular in nature on excretory phase images. 1.4 cm exophytic lesion projecting from the interpolar left kidney, measuring 40 Hounsfield units on precontrast and 32 Ho unsfield units on excretory phase images, compatible with a proteinaceous or h emorrhagic cyst. Subcentimeter hypoattenuating lesion projecting from the righ t kidney is too small to further characterize but likely represents an additio nal small cyst. Excretory phase images show no filling defects within the uppe r collecting systems or opacified segments of ureter. The distal ureters are p oorly opacified likely related to peristalsis. PELVIC ORGANS/BLADDER: Re tention balloon for a Greene catheter lies within the central aspect of the uri nary bladder. The bladder is otherwise collapsed with concentric wall thickeni ng. Mild perivesicular inflammation. Coarse prostatic calcifications. PER ITONEUM/RETROPERITONEUM: No ascites. No pneumoperitoneum. LYMPH NODES: No p elvic sidewall, retroperitoneal, or mesenteric lymphadenopathy. VESSELS: Atherosclerotic calcification of the abdominal aorta without aneurysmal dilata tion. Evaluation is otherwise limited secondary to contrast phase. GI TRA CT: The rectum is distended with stool and oral contrast from prior barium swa llow. No wall thickening or adjacent inflammatory change. No periappendiceal i nflammation. The stomach is collapsed. No small bowel dilatation to suggest ob struction. BONES AND SOFT TISSUE: Diffuse osteopenia. Multilevel lower lumb ar spine laminectomy. 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 Multilevel degenerative disc changes and facet arthropathy. Healing fractur es of the sixth, seventh (segmental), eighth, and ninth left ribs. Postsurgic al or postprocedural inflammatory change surrounding the right common femoral artery. Otherwise no focal soft tissue abnormalities. IMPRESSION: F oley catheter retention balloon appropriately positioned within the urinary bl adder per clinical query. Concentric urinary bladder wall thickening with a djacent perivesicular inflammation concerning for cystitis. Correlate with uri nalysis. Hemorrhagic or proteinaceous left renal cyst. No calculi or fillin g defects within the upper collecting systems or ureters. Healing left-si ded rib fractures as above. No pneumothorax. Signed by: Dr. Rachael Dickerson M.D. on 07/06/2018 2:06 PM Dictated By: RACHAEL DICKERSON MD Electronically S igned By: RACHAEL DICKERSON MD on 07/06/181405 Transcribed By: ARTURO on 07/06/181405 COPY TO: ALESSANDRO RAMIREZ MD Wound Rvtwzau6422-48-13 06:26:00* Test Item Value Reference Range Interpretation Comments Wound Culture (test code = 6462-6) Organism: STAPHYLOCOCCUS AUREUS- MRSA [facility] Fydrnxg4329-82-17 08:52:00* Test Item Value Reference Range Interpretation Comments Blood Culture (test code = 55639613) NO GROWTH AFTER 5 DAYS, FINAL REPORT [facility] PasoTotal Tryyrpvmr1702-69-75 07:08:00* Test Item Value Reference Range Interpretation Comments Total Bilirubin (test code = 1975-2) 0.7 0.2-1.2 [facility] PasoAspartate Amino Transf (AST/SGOT) 2018-07-01 07:08:00* Test Item Value Reference Range Interpretation Comments Aspartate Amino Transf (AST/SGOT) (test code = Aspartate Amino Transf (AST/SGOT)) 7 5-34 [facility] PasoAlanine Aminotransferase (ALT/SGPT) 2018-07-01 07:08:00* Test Item Value Reference Range Interpretation Comments Alanine Aminotransferase (ALT/SGPT) (test code = 1742-6) 9 0-55 [facility] PasoTotal Phwglbl5942-66-51 07:08:00* Test Item Value Reference Range Interpretation Comments Total Protein (test code = 2885-2) 6.5 6.5-8.1 [facility] PasoAlbumin2019-02-09 07:08:00* Test Item Value Reference Range Interpretation Comments Albumin (test code = 1751-7) 2.6 3.5-5.0 [facility] PasoGlobulin2019-02-09 07:08:00* Test Item Value Reference Range Interpretation Comments Globulin (test code = 85605-1) 3.9 2.3-3.5 [facility] PasoAlbumin/Globulin Jipxy6466-12-48 07:08:00 * Test Item Value Reference Range Interpretation Comments Albumin/Globulin Ratio (test code = 1759-0) 0.7 0.8-2.0 [facility] PasoAlkaline Jdbjvnpvwuf8406-51-62 07:08:00* Test Item Value Reference Range Interpretation Comments Alkaline Phosphatase (test code = 6768-6) 101 40-150 [facility] PasoCreatine Kinase XR9940-47-10 06:48:00* Test Item Value Reference Range Interpretation Comments Creatine Kinase MB (test code = 87326-9) 1.30 0-5.0 [facility] PasoTroponin J3158-28-92 06:48:00* Test Item Value Reference Range Interpretation Comments Troponin I (test code = NIN8001) 0.006 0-0.300 [facility] PasoCreatine Idbqfc1842-00-13 06:37:00* Test Item Value Reference Range Interpretation Comments Creatine Kinase (test code = 2157-6) 44 30-200 [facility] PasoUrine VSD4416-33-89 10:09:00* Test Item Value Reference Range Interpretation Comments Urine WBC (test code = 5821-4) NONE 0-5 [facility] PasoUrine NSV5905-64-14 10:09:00* Test Item Value Reference Range Interpretation Comments Urine RBC (test code = 52186-1) NONE 0-5 [facility] PasoUrine Yvarkqct0808-49-94 10:09:00* Test Item Value Reference Range Interpretation Comments Urine Bacteria (test code = 66358-0) RARE NONE [facility] PasoUrine Epithelial Iruov9756-88-08 10:09:00 * Test Item Value Reference Range Interpretation Comments Urine Epithelial Cells (test code = 50730-5) RARE NONE [facility] PasoUrine Hyaline Hchim8935-39-58 10:09:00* Test Item Value Reference Range Interpretation Comments Urine Hyaline Casts (test code = 08826-8) 2-5 0-1 [facility] PasoUrine Uofyy2233-78-89 10:09:00* Test Item Value Reference Range Interpretation Comments Urine Mucus (test code = 8247-9) RARE RARE [facility] PasoUrine Gwvyh5304-92-52 09:51:00* Test Item Value Reference Range Interpretation Comments Urine Color (test code = 5778-6) YELLOW YELLOW [facility] PasoUrine Wfwjlhx8812-14-82 09:51:00* Test Item Value Reference Range Interpretation Comments Urine Clarity (test code = 18767-5) HAZY CLEAR [facility] PasoUrine Specific Vnojoco0108-98-62 09:51:00 * Test Item Value Reference Range Interpretation Comments Urine Specific [place] (test code = 5811-5) 1.030 1.010-1.02 5 [facility] PasoUrine hK7964-68-20 09:51:00* Test Item Value Reference Range Interpretation Comments Urine pH (test code = 09463-7) 6 5-7 [facility] PasoUrine Leukocyte Naujdbwv7338-40-45 09:51:00* Test Item Value Reference Range Interpretation Comments Urine Leukocyte Esterase (test code = 5799-2) NEGATIVE NEGATIVE [facility] PasoUrine Caehvzt6803-75-51 09:51:00* Test Item Value Reference Range Interpretation Comments Urine Nitrite (test code = 10897-7) NEGATIVE NEGATIVE [facility] Fpqdlzd5484-19-61 09:51:00* Test Item Value Reference Range Interpretation Comments Urine Protein (test code = 5804-0) NEGATIVE NEGATIVE [facility] Glucose (UA)2018-06-30 09:51:00* Test Item Value Reference Range Interpretation Comments Urine Glucose (UA) (test code = 2349-9) 3+ NEGATIVE [facility] Misroef8231-48-62 09:51:00* Test Item Value Reference Range Interpretation Comments Urine Ketones (test code = 29034-1) NEGATIVE NEGATIVE [facility] Ubpsvossbnqr6014-38-20 09:51:00* Test Item Value Reference Range Interpretation Comments Urine Urobilinogen (test code = 86224-1) 0.2 0.2-1 [facility] PasoUrine Fzxlhgktm2088-12-45 09:51:00* Test Item Value Reference Range Interpretation Comments Urine Bilirubin (test code = 1978-6) NEGATIVE NEGATIVE [facility] Vnazx9980-31-23 09:51:00* Test Item Value Reference Range Interpretation Comments Urine Blood (test code = 80104-1) NEGATIVE NEGATIVE [facility] PasoCHEST SINGLE (PORTABLE)2018-06-30 09:41:00 [facility] [address] [place] [address] Patient Name: ILIR LAWRENCE MR #: [id number] : 1930 Age/Sex: 87/M Req #: [id number] Adm Physician: Ordered by: KIRSTEN YIP MD Report #: [id number] Location: ER Room/Bed: Procedure: [id number] DX/ CHEST SINGLE (PORTABLE) Exam Date: 06/30/18 Exam Nam e: 0910 REPORT STATUS: Signed EX AMINATION: CHEST SINGLE (PORTABLE) INDICATION: Cough, recent pneumonia . COMPARISON: Chest radiograph 06/20/2018. FINDINGS: Exam is l imited by hypoinflated lungs and portable technique. TUBES and LINES: None . LUNGS: Lungs are not well inflated. There are perihilar and interstitial opacities. There are increased patchy opacities in the right mid and lower anisa ng zones. PLEURA: No pleural effusion or pneumothorax. HEART AND MEDIASTINUM: The cardiomediastinal silhouette is unremarkable. Atheroscleroti c calcifications of the aortic arch. BONES AND SOFT TISSUES: No acute bony findings. Extensive degenerative changes of bilateral shoulders, partially vis ualized. Superior subluxation of the bilateral humeral heads in relation to th e glenoids could reflect rotator cuff pathology. UPPER ABDOMEN: No free air under the diaphragm. IMPRESSION: Increased patchy opacities in t he right mid and lower lung zones which could represent pneumonia or atelectas is in the appropriate clinical setting. Follow chest radiograph is suggested i n 6-8 weeks to assess for resolution. Low lung volumes, cannot exclude mil d pulmonary interstitial edema. Signed by: Dr. Akash Bhatia MD on 06/30/2018 9 :44 AM Dictated By: AAKSH BHATIA MD 3 Transcribed By: ARTURO on 06/30/18943 COPY TO: KIRSTEN CALHOUN MD Magnesium Umicv0743-70-58 09:36:00* Test Item Value Reference Range Interpretation Comments Magnesium Level (test code = 17533-8) 1.7 1.3-2.1 [facility] PasoB-Type Natriuretic Ngebfns6615-74-35 09:28:00* Test Item Value Reference Range Interpretation Comments B-Type Natriuretic Peptide (test code = 30973-5) 55.9 0-100 [facility] PasoLactic Acid Ajjhp2903-98-44 09:20:00* Test Item Value Reference Range Interpretation Comments Lactic Acid Level (test code = Lactic Acid Level) 14.3 4.5- 19.8 [facility] PasoProthrombin Duaa5237-40-11 09:08:00* Test Item Value Reference Range Interpretation Comments Prothrombin Time (test code = 5902-2) 14.0 11.9-14.5 [facility] PasoProthromb Time International Ratio 2018-06-30 09:08:00* Test Item Value Reference Range Interpretation Comments Prothromb Time International Ratio (test code = 6301-6) 0.99 Oral Anticoagulant Therapy INR Values:1. Low Intensity Therapy 1.5 - 2.02 . Moderate Intensity Therapy 2.0 - 3.03. High Intensity Therapy(1) 2.5 - 3. 54. High Intensity Therapy(2) 3.0 - 4.05. Panic Value INR > 5.0 [facility] PasoActivated Partial Thromboplast Time 2018-06-30 09:08:00* Test Item Value Reference Range Interpretation Comments Activated Partial Thromboplast Time (test code = 32771-1) 35.4 23.8-35.5 [facility] PasoMODIFIED BA. LJPLLVN7944-22-33 13:23:00 [facility] [address] [place] [address] Patient Name: ILIR LAWRENCE MR #: [id number] : 1930 Age/Sex: 87/M Req #: [id number] Adm Physician: JOAQUIN YUNG MD Ordered by: JOAQUIN YUNG MD Report #: [id number] Location: MED/SURG2 Room/Bed: 2081 Procedure: [id number] DX/MO AYDEN BA. SWALLOW Exam Date: 06/26/18 Exam Time: 01 30 REPORT STATUS: Signed PROCEDU RE: X-RAY MODIFIED BARIUM SWALLOW COMPARISON: None. INDICATION: Aspir ation. Radiation Details: Fluoroscopy time: 1.3 minutes Cumulative air kerma: 12.4 mGy DISCUSSION: Fluoroscopic examination was performed in conj unction with speech pathology during swallowing a variety of thin and thick li quid consistencies. Provided images demonstrate no evidence of penetration or aspiration. Minimal vallecular residue is noted. CONCLUSION: Modified barium swallow demonstrating no evidence of penetration or aspiration. Please refer to the speech pathology report for further details including reported s uspected aspiration post procedurally after exam termination. Signed by: Yessica Bhatia MD on 06/26/2018 1:26 PM Dictated By: AKASH BHATIA MD Electro nically Signed By: AKASH BHATIA MD on 06/26/18 1326 Transcribed By: ARTURO on 1326 COPY TO: JOAQUIN YUNG MD Erythrocyte Sedimentation Hkim7777-87-74 11:43:00* Test Item Value Reference Range Interpretation Comments Erythrocyte Sedimentation Rate (test code = 4537-7) 95 0- 13 [facility] PasoHemoglobin A1c Azwxtsf7795-67-70 10:46:00 * Test Item Value Reference Range Interpretation Comments Hemoglobin A1c Percent (test code = Hemoglobin A1c Percent) 7.2 4.0-7.0 [facility] PasoTriglycerides Mtqnz6647-98-32 10:46:00* Test Item Value Reference Range Interpretation Comments Triglycerides Level (test code = 2571-8) 36 0-149 [facility] PasoCholesterol Pgqey0603-19-48 10:46:00* Test Item Value Reference Range Interpretation Comments Cholesterol Level (test code = 2093-3) 98 0-199 Less than 200 mg/dL Low Feuj717 - 239 mg/dL Borderline Ayfb330 m g/dl and greater High Risk [facility] PasoLDL Sjigpveezkt5054-60-01 10:46:00* Test Item Value Reference Range Interpretation Comments LDL Cholesterol (test code = 2089-1) 42 60-130 [facility] PasoHDL Uefmfrtemiy9681-08-36 10:46:00* Test Item Value Reference Range Interpretation Comments HDL Cholesterol (test code = 2085-9) 49 40-60 [facility] [facility] [id number] 10:46:00 * Test Item Value Reference Range Interpretation Comments Cholesterol/HDL Ratio (test code = 9830-1) 2.0 3.9-4.7 [facility]flu[facility] A[facility]B Antigen 2018-06-20 11:45:00* Test Item Value Reference Range Interpretation Comments Influenza Virus Types A,B Antigen (test code = 54756-7) NEGATIVE NEGATIVE [facility]2018-06-20 11:41:00 [place] [address] Patient Name: ILIR LAWRENCE MR #: [id number] : 1930 Age/Sex: 87/M Req #: [id number] Adm Physician: Ordered by: KIRSTEN YIP MD Report #: [id number] Location: ER Room/Bed: Procedure: [id number] DX/ CHEST SINGLE (PORTABLE) Exam Date: 06/20/18 Exam Nam e: 1115 REPORT STATUS: Signed EX AMINATION: CHEST SINGLE (PORTABLE) INDICATION: Cough. COMPARISON : None FINDINGS: TUBES and LINES: None. LUNGS: Lungs are not well inflated. Low lung volumes which decreases sensitivity and specificity f or pathology. Mild perihilar and interstitial opacities on the right. Patchy o pacities at the right lung base. PLEURA: No pleural effusion or pneumotho rax. Mild nonspecific elevation of the right hemidiaphragm. HEART AND MED IASTINUM: The cardiomediastinal silhouette is unremarkable. Atherosclerotic c alcifications of the aortic arch. BONES AND SOFT TISSUES: No acute bony fin dings. Extensive degenerative changes of bilateral shoulders, partially visual ized. Superior subluxation of the bilateral humeral heads in relation to the g lenoids could reflect rotator cuff pathology. UPPER ABDOMEN: No free air under the diaphragm. Air-filled colonic loops are noted. IMPRESSION: Low lung volumes, cannot exclude mild pulmonary interstitial edema. Patchy opa cities at the right lung base could represent atelectasis or pneumonia in the appropriate clinical setting. Mild nonspecific elevation of the right hemid iaphragm. Air filled colonic loops in the abdomen, KUB may be considered fo r further evaluation. Signed by: Dr. Akash Bhatia MD on 06/20/2018 11:44 A M Dictated By: AKASH BHATIA MD 1144 Transcribed By: ARTURO on 06/20/18 1144 COPY TO: Ulises YIP MD FOOT LEFT [id number] 11:40:00 [place] [address] Patient Name: ILIR LAWRENCE MR #: [id number] : 1930 Age/Sex: 87/M Req #: [id number] Adm Physician: Ordered by: KIRSTEN YIP MD Report #: [id number] Location: ER Room/Bed: Procedure: [id number] DX/ FOOT LEFT COMPLETE Exam Date: 06/20/18 Exam Time: 11 15 REPORT STATUS: Signed LEFT FO OT - 3 Images HISTORY: Second toe, diabetic foot ulcer COMPARISO N: None available. FINDINGS: Sensitivity limited by portable techniq ue. Bones: No acute displaced fracture. No aggressive osseous lesion. Small plantar calcaneal and dorsal calcaneal enthesophytes. Joints: M ild scattered degenerative changes. Soft tissues: Nonspecific soft tissue swelling, most notably the great toe and second toe, a small focus of air pro jects at the interspace between the toes, correlate for the site of the report ed ulcer IMPRESSION: No radiographic evidence of osteomyelitis. Signed by: Dr. Shelton Phillips D.O., M.M.M. on 06/20/2018 12:06 PM Dictated B y: SHELTON PHILLIPS DO 1206 Tr anscribed By: ARTURO on 06/20/181205 COPY TO: KIRSTEN YIP MD Group A Streptococcus [id number] 11:36:00* Test Item Value Reference Range Interpretation Comments Group A Streptococcus Screen (test code = 13132-1) NEGATIVE [facility]G [facility] [place] [address] Patient Name: ILIR LAWRENCE MR #: [id number] : 1930 Age/Sex: 87/M Req #: [id number] Adm Physician: Ordered by: JOSIE VAZQUEZ MD Report #: [id number] Location: MRI Room/Bed: Procedure: [id number] MRI/MRI BRAIN WO Exam Date: Exam Time: REPORT STATUS: Signed Examinat ion: Brain MRI without Contrast History: Memory loss. Comparison studies: None. Technique: Precontrast: Hi resolution Sag T1 with coronal and axi al reformats. Axial DWI, T2, T2 flair, gradient echo or SWI Intravenous cont rast: None. Findings: Structural lesions: No intra-or extra-axial ma sses. No hematomas. Atrophy: General: Mild bifrontal and biparietal volu me loss. Focal: Severe volume loss of the bilateral hippocampi. No mesencephal ic, pontine, or cerebellar atrophy. Henderson matter: Cortex:No signal abno rmalities. No encephalomalacia. Basal ganglia: No atrophy or signal abnormali ties. Thalami: No signal abnormalities. Micro hemorrhages: None. W balwinder matter signal intensity: There are confluent areas of T2/FLAIR hyperinte nsity in the periventricular and subcortical white matter, nonspecific. Subarachnoid spaces: No signal abnormalities. Ventricles: Normal in si ze and configuration. No hydrocephalus. Hippocampi, fornix and mammillary bodies: Normal in size and symmetric fornices. Mild volume loss of the mammi llary bodies. Other: Skull: No bone marrow abnormalities. Vessels: Expe cted flow voids present in the major arteries and dural sinuses.. Sella: [place] l in size. No intra-or suprasellar abnormalities. Cranio-cervical junction: N o abnormalities. Patent foramen magnum. No Chiari one malformation. Parana roxane sinuses: No T2 hyperintense mucosal thickening. Orbits: Bilateral slitlike lenses. IMPRESSION: 1. 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 2. Mild chronic microvascular ischemic change. Signed by: Patricia Linda on 09/28/2017 12:29 PM Dictated By: LIZ DESIR MD Electro nically Signed By: LIZ DESIR MD on 09/28/17 1229 Transcribed By: ARTURO on 09/28/17 1229 COPY TO: JOSIE VAZQUEZ MD
--- NOTE | 2019-10-09 13:46 | Emergency Department Note ---
History of Present Illnes History of Present Illness Chief Complaint: General Medicine Complaints History of Present Illness This is a 89 year old male COMPLAINTS OF LEFT WRIST/ELBOW PAIN AND SWELLING X 1 WEEK; DENIES TRAUMA OR FALL BUT PT WITH HISTORY OF DEMENTIA AND ATTEMPTS TO GET UP BY HIMSELF AND USUALLY ONLY GETS AROUND BY FAMILY HELPING TRANSFER TO W/C Historian: Family Member (DAUGHTER) Arrival Mode: Car History limited by: condition of the patient (DEMENTIA) Electrical Foreman Required: No Onset (how long ago): week(s) (1) Location: LEFT ELBOW Quality: PAIN/SWELLING Radiation: non-radiation Severity: mild Onset quality: gradual Duration (how long): week(s) (1) Timing of current episode: constant Progression: unchanged Chronicity: new Context: recent illness Relieving factors: none Exacerbating factors: none Associated symptoms: denies other symptoms Treatments prior to arrival: none Past Medical/Family History Physician Review I have reviewed the patient's past medical and family history. Any updates have been documented here. Past Medical History Recent Fever: No Clinical Suspicion of Infectio: No New/Unexplained Change in Ment: No Past Medical History: Hypertension, Diabetes, CHF, UTI's, Anemia, Hyperlipedemia, Chronic Kidney Disease, Osteoarthritis Other Medical History: DEMENTIA ACUTE KIDNEY FAILURE Past Surgical History: Knee Replacement, Back Surgery Other Surgery: NECK SPINAL BILATERAL KNEE REPLACEMENT Social History Smoking Cessation: Never Smoker Counseling Performed: No Alcohol Use: None Any Illegal Drug Use: No TB Exposure/Symptoms: No Physically hurt or threatened: No Family History Family history of heart diseas: No Other Last Tetanus: utd Any Pre-Existing Lines (PICC,: No Is patient up to date on immun: Yes Last Flu: UTD Last Pneumovax: UTD Review of Systems ROS Narrative Unable to obtain ROS: altered mental status (CHRONIC DEMENTIA) HX PER DAUGHTER Review of Systems Constitutional: no symptoms EENTM: no symptoms Cardiovascular: no symptoms Respiratory: no symptoms Gastrointestinal: no symptoms Genitourinary: no symptoms Musculoskeletal: as per HPI, joint pain, joint swelling Neurological: no symptoms Psychological: no symptoms Endocrine: no symptoms Hematological/Lymphatic: no symptoms Review of other systems All other systems reviewed and negative. Physical Exam Related Data Allergies: Coded Allergies: No Known Allergies (Unverified , 06/20/18) Triage Vital Signs Vital Signs Date Time Temp Pulse Resp B/P (MAP) Pulse Ox O2 Delivery O2 Flow Rate FiO2 10/09/19 12:51 97.3 59 16 100/56 100 Physical Exam CONSTITUTIONAL Constitutional: well-developed, well-nourished HENT HENT: normocephalic, atraumatic, oropharynx clear/moist, nose normal HENT L/R: left ext ear normal, right ext ear normal EYES Eyes: PERRL, conjunctivae normal NECK Neck: ROM normal, supple, other (MILD TENDERNESS CERVICAL SPINE) PULMONARY Pulmonary: effort normal, breath sounds normal CARDIOVASCULAR Cardiovascular: regular rhythm, heart sounds normal, capillary refill normal, normal rate GASTROINTESTINAL Abdominal: soft, nontender, bowel sounds normal GENITOURINARY Genitourinary: exam deferred SKIN Skin: warm, dry MUSCULOSKELETAL Musculoskeletal: tenderness (LEFT RADIAL HEAD, MODERATE TENDERNESS AND PAINFUL WITH SUPINATION), swelling (MOD SWELLING LEFT ELBOW TO WRIST) NEUROLOGICAL Neurological: alert, no gross motor or sensory deficits PSYCHOLOGICAL Psychological: mood/affect normal, judgement normal Results Laboratory Lab results reviewed: Yes Laboratory comments Laboratory Tests Test 10/09/19 14:40 White Blood Count 9.92 x10e3/uL (4.8-10.8) Red Blood Count 3.60 x10e6/uL (4.3-5.7) Hemoglobin 10.6 g/dL (14.0-18.0) Hematocrit 33.6 % (38.2-49.6) Mean Corpuscular Volume 93.3 fL (81-99) Mean Corpuscular Hemoglobin 29.4 pg (28-32) Mean Corpuscular Hemoglobin Concent 31.5 g/dL (31-35) Red Cell Distribution Width 13.3 % (11.7-14.4) Platelet Count 290 x10e3/uL (140-360) Neutrophils (%) (Auto) 60.1 % (38.7-80.0) Lymphocytes (%) (Auto) 28.7 % (18.0-39.1) Monocytes (%) (Auto) 5.9 % (4.4-11.3) Eosinophils (%) (Auto) 4.1 % (0.0-6.0) Basophils (%) (Auto) 0.8 % (0.0-1.0) Neutrophils # (Auto) 6.0 (2.1-6.9) Lymphocytes # (Auto) 2.9 (1.0-3.2) Monocytes # (Auto) 0.6 (0.2-0.8) Eosinophils # (Auto) 0.4 (0.0-0.4) Basophils # (Auto) 0.1 (0.0-0.1) Absolute Immature Granulocyte (auto 0.04 x10e3/uL (0-0.1) Prothrombin Time 12.1 seconds (11.9-14.5) Prothromb Time International Ratio 0.85 Activated Partial Thromboplast Time 27.5 seconds (23.8-35.5) Sodium Level 140 mmol/L (136-145) Potassium Level 4.7 mmol/L (3.5-5.1) Chloride Level 104 mmol/L (98-107) Carbon Dioxide Level 21 mmol/L (22-29) Anion Gap 19.7 mmol/L (8-16) Blood Urea Nitrogen 26 mg/dL (7-26) Creatinine 1.03 mg/dL (0.72-1.25) Estimat Glomerular Filtration Rate > 60 ML/MIN (60-) BUN/Creatinine Ratio 25 (6-25) Glucose Level 111 mg/dL (74-118) Calcium Level 9.5 mg/dL (8.4-10.2) Magnesium Level 1.3 MG/DL (1.3-2.1) Total Bilirubin 0.4 mg/dL (0.2-1.2) Aspartate Amino Transf (AST/SGOT) 7 IU/L (5-34) Alanine Aminotransferase (ALT/SGPT) 7 IU/L (0-55) Alkaline Phosphatase 106 IU/L (40-150) Creatine Kinase 32 IU/L (30-200) Creatine Kinase MB 1.20 ng/mL (0-5.0) Troponin I 0.001 ng/mL (0-0.300) Total Protein 7.3 g/dL (6.5-8.1) Albumin 3.6 g/dL (3.5-5.0) Globulin 3.7 g/dL (2.3-3.5) Albumin/Globulin Ratio 1.0 (0.8-2.0) Imaging Imaging results reviewed: Yes Impressions TECHNIQUE: 3 views of the left wrist, 2 views of the left forearm, 3 views of the left elbow HISTORY: ^SWELLING, ? FALL. COMPARISON: None. IMPRESSION: Severe erosive changes throughout the carpals and distal radius. Near complete collapse of the scaphoid. Distal radius erosion and collapse laterally. Bony lucency at the distal radius. These findings are consistent with severe degenerative changes with possible superimposed infection in the appropriate clinical scenario. Consider MRI as osteomyelitis is suspected. No definite acute displaced fracture although evaluation is severely limited given the degree of erosion and degenerative change. Minimal degenerative change of the elbow. Signed by: Ziyad Treviño MD on 10/09/2019 2:21 PM Diagnostics Tests Diagnostic test(s) reviewed: Yes Critical Care Time Subsequent provider I assumed direction of critical care for this patient from another provider of my specialty. Assessment & Plan Reassessment Reassessment INITIALLY I THOUGHT PT MAY HAVE HAD AN UNWITNESSED FALL WITH HIS H/O DEMENTIA AND DID CT HEAD/C-SPINE AND XRAYS OF ELBOW, FOREARM, WRIST TO R/O FX, R/O CEREBRAL BLEED/CONTUSION, R/O CERVICAL FX. WHEN XRAYS CAME BACK WITH EVID OF OSTEOMYELITIS I ORDERED CBC, CHEM'S, BLOOD CX'S, STARTED VANCO/ZOSYN AND ADMITTED PT. I SPOKE WITH DR WALLER AND DR ORELLANA Assessment & Plan Final Impression: (1) Osteomyelitis (2) Cellulitis of left arm Assessment & Plan ADMIT Depart Disposition: ADMITTED Last Vital Signs Date Time Temp Pulse Resp B/P (MAP) Pulse Ox O2 Delivery O2 Flow Rate FiO2 10/09/19 12:51 97.3 59 16 100/56 100 Home Meds Active Scripts Clopidogrel Bisulfate* (PLAVIX) 75 Mg Tablet, 75 MG PO DAILY for 30 Days Prov:CONSTANTINO YUNG MD 06/27/18 [Atorvastatin] 40 MG TAB No Conflict Check, 40 MG PO DAILY for 30 Days Prov:CONSTANTINO YUNG MD 06/27/18 Aspirin (ASPIRIN EC) 81 Mg Tablet.dr, 81 MG PO DAILY for 30 Days Prov:CONSTANTINO YUNG MD 06/27/18 Minocycline Hcl (MINOCYCLINE HCL) 50 Mg Capsule, 100 MG PO BID, #20 TAB Prov:CONSTANTINO YUNG MD 06/27/18 Ciprofloxacin Hcl (CIPRO) 500 Mg Tablet, 500 MG PO Q12H for 10 Days, #30 TAB Prov:CONSTANTINO YUNG MD 06/27/18 Metoprolol Tartrate (LOPRESSOR) 25 Mg Tab, 25 MG PO BID for 14 Days, TAB Prov:CONSTANTINO YUNG MD 06/27/18 Sennosides (SENOKOT) 8.6 Mg Tablet, 17.2 MG PO BID for 30 Days Prov:CONSTANTINO YUNG MD 06/27/18 Docusate Sodium (COLACE) 100 Mg Capsule, 100 MG PO DAILY for 30 Days Prov:CONSTANTINO YUNG MD 06/27/18 Reported Medications Acetaminophen* (TYLENOL*) 325 Mg Tablet, 325 MG PO Q6H 06/21/18 Valsartan (DIOVAN) 160 Mg Tab, 320 MG PO DAILY, #60 TAB 06/21/18 Trazodone Hcl (TRAZODONE HCL) 50 Mg Tablet, 50 MG PO HS, #30 TAB 06/21/18 Tramadol Hcl (ULTRAM) 50 Mg Tablet, 50 MG PO DAILY, TAB 06/21/18 Sodium Chloride (SODIUM CHLORIDE) 1 Gm Tab, 1 GM PO BID, #30 TAB 06/21/18 Risperidone (RISPERIDONE) 0.5 Mg Tablet, 0.25 MG PO DAILY, TAB 06/21/18 Memantine Hcl (NAMENDA) 10 Mg Tablet, 5 MG DAILY, #30 TAB 06/21/18 Tamsulosin Hcl* (FLOMAX*) 0.4 Mg Cap, 0.4 MG PO DAILY, #30 CAP 06/21/18 Famotidine (FAMOTIDINE) 20 Mg Tab, 20 MG PO DAILY, #30 TAB 06/21/18 KIRSTEN YIP MD October 09, 2019 13:45
--- NOTE | 2019-10-09 14:25 | Diagnostic Imaging Report ---
TECHNIQUE: 3 views of the left wrist, 2 views of the left forearm, 3 views of the left elbow HISTORY: ^SWELLING, ? FALL. COMPARISON: None. IMPRESSION: Severe erosive changes throughout the carpals and distal radius. Near complete collapse of the scaphoid. Distal radius erosion and collapse laterally. Bony lucency at the distal radius. These findings are consistent with severe degenerative changes with possible superimposed infection in the appropriate clinical scenario. Consider MRI as osteomyelitis is suspected. No definite acute displaced fracture although evaluation is severely limited given the degree of erosion and degenerative change. Minimal degenerative change of the elbow. Signed by: Ziyad Treviño MD on 10/09/2019 2:21 PM
[2019-10-09] MEDS ORDERED: PIPER-TAZ 3.375 GM 50 ML IV ONE (14:45)
[2019-10-09 14:58] LABS: BASOPHILS # (AUTO) 0.1 (0.0-0.1); BASOPHILS % 0.8 % (0.0-1.0); EOSINOPHILS # (AUTO) 0.4 (0.0-0.4); EOSINOPHILS % 4.1 % (0.0-6.0); HEMATOCRIT 33.6 % (38.2-49.6); HEMOGLOBIN 10.6 g/dL (14.0-18.0); LYMPHOCYTES # (AUTO) 2.9 (1.0-3.2); LYMPHOCYTES % 28.7 % (18.0-39.1); MEAN CORPUSCULAR HEMOGLOBIN 29.4 pg (28-32); MEAN CORPUSCULAR HGB CONC 31.5 g/dL (31-35); MEAN CORPUSCULAR VOLUME 93.3 fL (81-99); MONOCYTES # (AUTO) 0.6 (0.2-0.8); MONOCYTES % 5.9 % (4.4-11.3); NEUTROPHILS % 60.1 % (38.7-80.0); PLATELET COUNT 290 x10e3/uL (140-360); RED CELL DISTRIBUTION WIDTH 13.3 % (11.7-14.4)
[2019-10-09] MEDS ORDERED: SODIUM CHLORIDE 0.9% 500ML 500 ML IV ONE (15:00)
[2019-10-09 15:10] LABS: INR 0.85; PROTHROMBIN TIME 12.1 seconds (11.9-14.5)
[2019-10-09 15:11] LABS: PARTIAL THROMBOPLASTIN TIME 27.5 seconds (23.8-35.5)
[2019-10-09 15:20] LABS: ALANINE AMINOTRANSFERASE 7 IU/L (0-55); ALBUMIN 3.6 g/dL (3.5-5.0); ALKALINE PHOSPHATASE 106 IU/L (40-150); ANION GAP 19.7 mmol/L (8-16); BLOOD UREA NITROGEN 26 mg/dL (7-26); BUN/CREATININE RATIO 25 (6-25); CALCIUM 9.5 mg/dL (8.4-10.2); CARBON DIOXIDE 21 mmol/L (22-29); CHLORIDE 104 mmol/L (98-107); CREATINE KINASE 32 IU/L (30-200); CREATININE, SERUM 1.03 mg/dL (0.72-1.25); EST GLOMERULAR FILTRATION RATE > 60 ML/MIN (60-); GLUCOSE 111 mg/dL (74-118); MAGNESIUM 1.3 MG/DL (1.3-2.1); POTASSIUM 4.7 mmol/L (3.5-5.1); SODIUM 140 mmol/L (136-145)
[2019-10-09] MEDS ORDERED: VANCOMYCIN 1GM/NS 250 ML 250 ML IV ONE (15:30)
[2019-10-09] MEDS ORDERED: ACETAMINOPHEN 325 MG TAB PO PRN (15:30)
[2019-10-09] MEDS ORDERED: ONDANSETRON HCL INJ 2MG/ML 2ML 2 MG/ML VIAL IV PRN (15:30)
[2019-10-09] MEDS ORDERED: SODIUM CHLORIDE 0.9% 1000ML 1,000 ML IV SCH (15:30)
--- NOTE | 2019-10-09 15:35 | Diagnostic Imaging Report ---
EXAMINATION: Head and cervical spine CT without contrast. HISTORY: Status post fall, pain, alteration of consciousness, Alzheimer's disease COMPARISON: Brain MRI 05/07/2019 TECHNIQUE: Multidetector axial images were obtained without contrast from the foramen magnum to the vertex and through the cervical spine. The images were reconstructed using brain and bone algorithms. Thin section brain images were reformatted into coronal and sagittal planes. Dose modulation, iterative reconstruction, and/or weight based adjustment of the mA/kV was utilized to reduce the radiation dose to as low as reasonably achievable. HEAD CT FINDINGS: Skull/scalp: No lytic or blastic lesions. No fractures. Parenchyma: Persistent mild white matter chronic microvascular ischemic changes. No mass, hemorrhage or CT evidence of acute vascular insult. Brain volume: Generalized volume loss, with particular prominence of the parietal sulci, bilateral temporal horns and bilateral anterior temporal and hippocampal atrophy, which can be seen in patient's with Alzheimer's disease in the correct clinical setting. Ventricles: Mild compensatory dilatation, no hydrocephalus. Arteries: No density suggestive of thrombus. Dural sinuses: No abnormal density. Extra-axial spaces: No abnormal density. Foramen magnum: No mass, Chiari malformation, or basilar invagination. Sella: No obvious mass. Paranasal/mastoid sinuses: Imaged portions unremarkable. External auditory canals: Opacification mainly on the left may be related to cerumen, correlation with physical examination is advised. CERVICAL SPINE CT FINDINGS: Alignment:Reversal of the cervical lordosis, mild kyphosis centered at L5. Grade 1 anterolisthesis at C7-T1. Soft tissues: Normal. Vertebrae: Diffuse adrenal bone marrow density, prominent subchondral sclerosis from C4 to T2. Status post decompressive laminectomy from C4 to C7. Interbody fusion from C3 to C6.. Degenerative changes: Uncovertebral and facet arthrosis at all levels contributes to foraminal narrowing as detailed below. C1-C2: Degenerative changes, thickening of the atlantodental ligaments, mild narrowing at the level of the foramen magnum. C2-C3: Prominent uncovertebral and facet arthrosis worst on the left, ligamenta flava thickening, severe spinal canal and left foraminal stenoses. C3-C4: Surgical decompression. Interbody and posterior elements fusion. Severe foraminal stenosis. C4-C5: Surgical level, severe foraminal stenosis. C5-C6: Surgical level, severe foraminal stenosis. C6-C7: Surgical level, severe foraminal stenosis worse on the left. C7-T1: Bilateral facet arthrosis. No significant. Spinal or foraminal stenosis. IMPRESSION: Head CT: 1. No acute postraumatic intracranial hemorrhage. 2. Mild chronic microvascular ischemic changes. 3. Disproportionate head parietal and temporal atrophy, likely associated to Alzheimer's disease. Cervical spine CT: 1. No acute fractures or dislocations. 2. 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 3. Extensive postoperative changes of the cervical spine as detailed above Note: Acute post traumatic spinal cord, vascular or ligamentous injury cannot adequately be assessed with CT. Signed by: Dr. Julia Christopher M.D. on 10/09/2019 3:31 PM
--- NOTE | 2019-10-09 16:13 | NUR ---
RECEIVED REPORT FROM ER, PT WILL BE BROUGHT TO UNIT VIA WHEELCHAIR. DAUGHTER WILL BE AT THE BEDSIDE.
--- OUTSIDE RECORDS SUMMARY | 2019-10-09 16:35 | XMS REPORT ---
Author Author [facility] t Organization [facility] Address [address] [place] [id number] Phone Unavailable Care Team Providers Care Environmental Monitoring Specialist Name Role Phone JOSIE VAZQUEZ MD PCP Jacquelyn YIP Attphys Unavailable JOSIE VAZQUEZ Attphys Unavailable AGA HOPSON Attphyrodger Unavailable JOAQUIN YUNG Attphys Unavailable ROBERTO WALLER Admphys Unavailable AGA HOPSON Admphys Unavailable JOAQUIN YUNG Admphys Unavailable Payers Payer Name Policy Type Policy Number Effective Date Expiration Date Rodger jaime [facility] Medicare Complete [id number] 2017 00:00:00 [facility] Medicare Complete [id number] 2017 00:00:[address] 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 Pneumonia Pneumonia Problem Active [facility] Allergies, Adverse Reactions, Alerts Allergy Name Allergy Type Status Severity Reaction(s) Onset Date Inacti ve Date Treating Clinician Comments Source No Known Allergies DA Active U 2018-05-17 00:00:00 [facility] No Known Allergies DA Active U 2017-12-12 00:00:00 [facility] Social History Social Habit Start Date Stop Date Quantity Comments Source Sex Assigned At Adolfo Huynh Alcohol intake 2017-09-26 00:00:00 2017-09-26 00:00:00 Current non-drinker of alcohol (finding) Donald Huynh Smoking Status Start Date Stop Date Source Never smoker Donald delgadillo Medications Ordered Medication Name Filled Medication Name Start Date Stop Da te Current Medication? Ordering Clinician Indication Dosage Frequency Signature (SIG) Comments Components Source Aspirin (Aspirin Ec) 81 Mg Tablet. Aspirin (Aspirin Ec) 81 Mg Tablet. 2018-06-27 00:00:00 Yes Joaquin Yung Md [address] [facility] Atorvastatin 40 Mg Tab Atorvastatin 40 Mg Tab 2018-06-27 00:00:00 Yes Joaquin Yung Md 40 Daily [facility] Ciprofloxacin Hcl (Cipro) 500 Mg Tablet Ciprofloxacin Hcl (C ipro) 500 Mg Tablet 2018-06-27 00:00:00 Yes Joaquin Yung Md 500 Every [address] [facility] Clopidogrel Bisulfate (Plavix) 75 Mg Tablet Clopidogre l Bisulfate (Plavix) 75 Mg Tablet 2018-06-27 00:00:00 Yes Joaquin Yung Md [address] [facility] Docusate Sodium (Colace) 100 Mg Capsule Docusate Sodium (Col nena) 100 Mg Capsule 2018-06-27 00:00:00 Yes Joaquin Yung Md [address] [facility] Metoprolol Tartrate (Lopressor) 25 Mg Tab Metoprolol T artrate (Lopressor) 25 Mg Tab 2018-06-27 00:00:00 Yes Joaquin Yung Md 25 Twice A D ay [facility] Minocycline Hcl 50 Mg Capsule Minocycline Hcl 50 Mg Capsule 2018 00:00:00 Yes Joaquin Yung Md 100 Tw[address] A Day [facility] Sennosides (Senokot) 8.6 Mg Tablet Sennosides (Senokot) 8.6 Mg Tablet 2018-06-27 00:00:00 Yes Joaquin Yung Md 17.2 Twice A Day [facility] metFORMIN (GLUCOPHAGE) 500 mg tablet 2017-09-26 13:59:56 Ye s 500mg Q.5D Take 500 mg by mouth 2 (two) times a day with meals. Donald Jain lisinopril (PRINIVIL,ZESTRIL) 10 mg tablet 2017-09-26 13:59:56 Yes 10mg QD Take 10 mg by mouth daily. [place] patrica Jain traMADol (ULTRAM) 50 mg tablet 2017-08-23 00:00:00 Yes TK ONE T PO Q 8 H PRN P WF [place] [facility]ain Acetaminophen (Tylenol*) 325 Mg Tablet Acetaminophen (Tylenol*) 325 Mg Tablet Yes 325 Every 6 Hours [facility] Famotidine 20 Mg Tab Famotidine 20 Mg Tab Yes [address] [facility] Memantine Hcl (Namenda) 10 Mg Tablet Memantine Hcl (Namenda) 10 Mg Tablet Yes [address] [facility] Risperidone 0.5 Mg Tablet Risperidone 0.5 Mg Tablet Yes .[address] [facility] Sodium Chloride 1 Gm Tab Sodium Chloride 1 Gm Tab Yes 1 Twice A Day [facility] Tamsulosin Hcl (Flomax*) 0.4 Mg Cap Tamsulosin Hcl (Flomax*) 0.4 Mg C ap Yes .4 Daily [facility] Tramadol Hcl (Ultram) 50 Mg Tablet Tramadol Hcl (Ultram) 50 Mg Tablet Yes [address] [facility] Trazodone Hcl 50 Mg Tablet Trazodone Hcl 50 Mg Tablet Yes 50 Bedtime [facility] Valsartan (Diovan) 160 Mg Tab Valsartan (Diovan) 160 Mg Tab Yes 320 Daily [facility] Procedures Procedure Date / Time Performed Performing Clinician Sour e Computed tomography of abdomen and pelvis without then with contrast 2018-07-06 00:00:00 HAMPEL, ALESSANDRO [facility] DILATION OF L FEM ART USING DRUG BLLN, PERC APPROACH 2018-06 00:00:00 WILFREDO LAWTON [facility] DILATION OF L POST TIB ART USING DRUG BLLN, PERC APPROACH 20 11-07-03 00:00[facility] L POPL ART USING DRUG BLLN, PERC APPROACH 06-26 00:00:00 WILFREDO LAWTON [facility] DILATION OF L FEM ART, BIFURC, WITH DRUG-ELUT, [facility] AP PROACH 2018-06-26 00:00:00 WILFREDO LAWTON [facility] DILATION OF LEFT POPLITEAL ARTERY, PERCUTANEOUS APPROACH 201 01-23-04 00:00:00 WILFREDO LAWTON [facility] DILATION OF LEFT ANTERIOR TIBIAL ARTERY, PERC APPROACH 06-26 00:00:00 WILFREDO LAWTON [facility] FLUOROSCOPY OF AORTA, BI LE ART USING L OSM CONTRAST 2018-06 00:00:00 WILFREDO LAWTON [facility] Magnetic resonance imaging of brain without contrast 2017-09 00:00:[address] [facility] Plan of Care Planned Activity Planned Date Details Comments Source Future Scheduled Test 2019-12-22 00:00:00 INFLUENZA VACCINE [code = INFLUENZA VACCINE] [facility] Future Scheduled Test 1995-09-14 00:00:00 65+ PNEUMOCOCCAL V ACCINE (1 of 2 - PCV13) [code = 65+ PNEUMOCOCCAL VACCINE (1 of 2 - PCV13)] [facility] Future Scheduled Test 1980 00:00:00 SHINGLES VACCINES (#1) [code = SHINGLES VACCINES (#1)] [facility] Encounters Start Date/Time End Date/Time Encounter Type Admission Type Attendi [facility] Care Department Encounter ID Source 2018-06-30 12:46:00 2018-06-30 12:46:00 Admitted Inpatient 1 AGA [facility] [id number] [facility] 2018-06-20 12:01:00 2018-06-27 14:01:00 Discharged Inpatient 1 JOAQUIN YUNG [facility] [id number] [facility] 2017-09-28 10:04:00 2017-09-28 10:04:00 Registered Clinic 3 JOSIE VAZQUEZ [facility] [id number] [facility] Results Test Description Test Time Test Comments Results Result Comments Source CT CERVICAL SPINE WO 2019-10-09 15:22:00 [place] [address] Patient Name: ILIR LAWRENCE MR #: [id number] : 1930 Age/Sex: 89/M Req #: [id number] Adm Physician: Ordered by: KIRSTEN YIP MD Report #: [id number] Location: ER Room/Bed: Procedure: [id number] CT/CT CERVICAL SPINE WO Exam Date: 10/09/19 Exam Time: 1330 REPORT STATUS: Signed EXAMINATION: Head and cervical spine CT without contrast. HISTORY: Status post fall, pain, alteration of consciousness, Alzheimer's disease COMPARISON: Brain MRI 05/07/2019 TECHNIQUE: Multidetector axial images were obtained without contrast from the foramen magnum to the vertex and through the cervical spine. The images were reconstructed using brain and bone algorithms. Thin section brain images were reformatted into coronal and sagittal planes. Dose modulation, iterative reconstruction, and/or weight based adjustment of the mA/kV was utilized to reduce the radiation dose to as low as reasonably achievable. HEAD CT FINDINGS: Skull/scalp: No lytic or blastic lesions. No fractures. Parenchyma: Persistent mild white matter chronic microvascular ischemic changes. No mass, hemorrhage or CT evidence of acute vascular insult. Brain volume: Generalized volume loss, with particular prominence of the parietal sulci, bilateral temporal horns and bilateral anterior temporal and hippocampal atrophy, which can be seen in patient's with Alzheimer's disease in the correct clinical setting. Ventricles: Mild compensatory dilatation, no hydrocephalus. Arteries: No density suggestive of thrombus. Dural sinuses: No abnormal density. Extra-axial spaces: No abnormal density. Foramen magnum: No mass, Chiari malformation, or basilar invagination. Sella: No obvious mass. Paranasal/mastoid sinuses: Imaged portions unremarkable. External auditory canals: Opacification mainly on the left may be related to cerumen, correlation with physical examination is advised. CERVICAL SPINE CT FINDINGS: Alignment:Reversal of the cervical lordosis, mild kyphosis centered at L5. Grade 1 anterolisthesis at C7-T1. Soft tissues: Normal. Vertebrae: Diffuse adrenal bone marrow density, prominent subchondral sclerosis from C4 to T2. Status post decompressive laminectomy from C4 to C7. Interbody fusion from C3 to C6.. Degenerative changes: Uncovertebral and facet arthrosis at all levels contributes to foraminal narrowing as detailed below. C1- C2: Degenerative changes, thickening of the atlantodental ligaments, mild narrowing at the level of the foramen magnum. C2-C3: Prominent uncovertebral and facet arthrosis worst on the left, ligamenta flava thickening, severe spinal canal and left foraminal stenoses. C3-C4: Surgical decompression. Interbody and posterior elements fusion. Severe foraminal stenosis. C4-C5: Surgical level, severe foraminal stenosis. C5-C6: Surgical level, severe foraminal stenosis. C6-C7: Surgical level, severe foraminal stenosis worse on the left. C7-T1: Bilateral facet arthrosis. No significant. Spinal or foraminal stenosis. IMPRESSION: Head CT: 1. No acute postraumatic intracranial hemorrhage. 2. Mild chronic microvascular ischemic changes. 3. Disproportionate head parietal and temporal atrophy, likely associated to Alzheimer's disease. Cervical spine CT: 1. No acute fractures or dislocations. 2. 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 3. Extensive postoperative changes of the cervical spine as detailed above Note: Acute post traumatic spinal cord, vascular or ligamentous injury cannot adequately be assessed with CT. Signed by: Dr. Nicolas Christopher M.D. on 10/09/2019 3:31 PM Dictated By: NICOLAS CHRISTOPHER MD 153 Transcribed By: ARTURO on 10/09/19 153 COPY TO: KIRSTEN YIP MD CT BRAIN WO 2019-10-09 15:22:00 [place] [address] Patient Name: ILIR LAWRENCE MR #: [id number] : 1930 Age/Sex: 89/M Req #: [id number] Adm Physician: Ordered by: KIRSTEN YIP MD Report #: [id number] Location: ER Room/Bed: Procedure: [id number] CT/CT BRAIN WO Exam Date: 10/09/19 Exam Time: 1330 REPORT STATUS: Signed EXAMINATION: Head and cervical spine CT without contrast. HISTORY: Status post fall, pain, alteration of consciousness, Alzheimer's disease COMPARISON: Brain MRI 05/07/2019 TECHNIQUE: Multidetector axial images were obtained without contrast from the foramen magnum to the vertex and through the cervical spine. The images were reconstructed using brain and bone algorithms. Thin section brain images were reformatted into coronal and sagittal planes. Dose modulation, iterative reconstruction, and/or weight based adjustment of the mA/kV was utilized to reduce the radiation dose to as low as reasonably achievable. HEAD CT FINDINGS: Skull/scalp: No lytic or blastic lesions. No fractures. Parenchyma: Persistent mild white matter chronic microvascular ischemic changes. No mass, hemorrhage or CT evidence of acute vascular insult. Brain volume: Generalized volume loss, with particular prominence of the parietal sulci, bilateral temporal horns and bilateral anterior temporal and hippocampal atrophy, which can be seen in patient's with Alzheimer's disease in the correct clinical setting. Ventricles: Mild compensatory dilatation, no hydrocephalus. Arteries: No density suggestive of thrombus. Dural sinuses: No abnormal density. Extra-axial spaces: No abnormal density. Foramen magnum: No mass, Chiari malformation, or basilar invagination. Sella: No obvious mass. Paranasal/mastoid sinuses: Imaged portions unremarkable. External auditory canals: Opacification mainly on the left may be related to cerumen, correlation with physical examination is advised. CERVICAL SPINE CT FINDINGS: Alignment:Reversal of the cervical lordosis, mild kyphosis centered at L5. Grade 1 anterolisthesis at C7-T1. Soft tissues: Normal. Vertebrae: Diffuse adrenal bone marrow density, prominent subchondral sclerosis from C4 to T2. Status post decompressive laminectomy from C4 to C7. Interbody fusion from C3 to C6.. Degenerative changes: Uncovertebral and facet arthrosis at all levels contributes to foraminal narrowing as detailed below. C1- C2: Degenerative changes, thickening of the atlantodental ligaments, mild narrowing at the level of the foramen magnum. C2-C3: Prominent uncovertebral and facet arthrosis worst on the left, ligamenta flava thickening, severe spinal canal and left foraminal stenoses. C3-C4: Surgical decompression. Interbody and posterior elements fusion. Severe foraminal stenosis. C4-C5: Surgical level, severe foraminal stenosis. C5-C6: Surgical level, severe foraminal stenosis. C6-C7: Surgical level, severe foraminal stenosis worse on the left. C7-T1: Bilateral facet arthrosis. No significant. Spinal or foraminal stenosis. IMPRESSION: Head CT: 1. No acute postraumatic intracranial hemorrhage. 2. Mild chronic microvascular ischemic changes. 3. Disproportionate head parietal and temporal atrophy, likely associated to Alzheimer's disease. Cervical spine CT: 1. No acute fractures or dislocations. 2. 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 3. Extensive postoperative changes of the cervical spine as detailed above Note: Acute post traumatic spinal cord, vascular or ligamentous injury cannot adequately be assessed with CT. Signed by: Dr. Nicolas Christopher M.D. on 10/09/2019 3:31 PM Dictated By: NICOLAS CHRISTOPHER MD 30 Transcribed By: ARTURO on 10/09/191530 COPY TO: KIRSTEN YIP MD WRIST COMPLETE LEFT 2019-10-09 14:16:00 [place] [address] Patient Name: ILIR LAWRENCE MR #: [id number] : 1930 Age/Sex: 89/M Req #: [id number] Adm Physician: Ordered by: KIRSTEN YIP MD Report #: [id number] Location: ER Room/Bed: Procedure: [id number] DX/WRIST COMPLETE LEFT Exam Date: Exam Time: REPORT STATUS: Signed TECHNIQUE: 3 views of the left wrist, 2 views of the left forearm, 3 views of the left elbow HISTORY: SWELLING, ? FALL. COMPARISON: None. IMPRESSION: Severe erosive changes throughout the carpals and distal radius. Near complete collapse of the scaphoid. Distal radius erosion and collapse laterally. Bony lucency at the distal radius. These findings are consistent with severe degenerative changes with possible superimposed infection in the appropriate clinical scenario. Consider MRI as osteomyelitis is suspected. No definite acute displaced fracture although evaluation is severely limited given the degree of erosion and degenerative change. Minimal degenerative change of the elbow. Signed by: Ziyad Bear MD on 10/09/2019 2:21 PM Dictated By: ZIYAD BEAR DO 20 Transcribed By: ARTURO on 10/09/191420 COPY TO: KIRSTEN YIP MD FOREARM LEFT 2 VIEW 2019-10-09 14:16:00 [facility] [address] [place] [address] Patient Name: ILIR LAWRENCE MR #: [id number] : 1930 Age/Sex: 89/M Req #: [id number] Adm Physician: Ordered by: KIRSTEN YIP MD Report #: [id number] Location: ER Room/Bed: Procedure: [id number] DX/FOREARM LEFT 2 VIEW Exam Date: Exam Time: REPORT STATUS: Signed TECHNIQUE: 3 views of the left wrist, 2 views of the left forearm, 3 views of the left elbow HISTORY: SWELLING, ? FALL. COMPARISON: None. IMPRESSION: Severe erosive changes throughout the carpals and distal radius. Near complete collapse of the scaphoid. Distal radius erosion and collapse laterally. Bony lucency at the distal radius. These findings are consistent with severe degenerative changes with possible superimposed infection in the appropriate clinical scenario. Consider MRI as osteomyelitis is suspected. No definite acute displaced fracture although evaluation is severely limited given the degree of erosion and degenerative change. Minimal degenerative change of the elbow. Signed by: Ziyad Bear MD on 10/09/2019 2:21 PM Dictated By: ZIYAD EBAR DO 142 Transcribed By: ARTURO on 10/09/19 142 COPY TO: KIRSTEN YIP MD ELBOW LEFT COMPLETE 2019-10-09 14:16:00 [place] [address] Patient Name: ILIR LAWRENCE MR #: [id number] : 1930 Age/Sex: 89/M Req #: [id number] Adm Physician: Ordered by: KIRSTEN YIP MD Report #: [id number] Location: ER Room/Bed: Procedure: [id number] DX/ELBOW LEFT COMPLETE Exam Date: Exam Time: REPORT STATUS: Signed TECHNIQUE: 3 views of the left wrist, 2 views of the left forearm, 3 views of the left elbow HISTORY: SWELLING, ? FALL. COMPARISON: None. IMPRESSION: Severe erosive changes throughout the carpals and distal radius. Near complete collapse of the scaphoid. Distal radius erosion and collapse laterally. Bony lucency at the distal radius. These findings are consistent with severe degenerative changes with possible superimposed infection in the appropriate clinical scenario. Consider MRI as osteomyelitis is suspected. No definite acute displaced fracture although evaluation is severely limited given the degree of erosion and degenerative change. Minimal degenerative change of the elbow. Signed by: Ziyad Bear MD on 10/09/2019 2:21 PM Dictated By: ZIYAD BEAR DO 142 Transcribed By: ARTURO on 10/09/19 1421 COPY TO: KIRSTEN YIP MD MRI BRAIN WO 2019-05-07 12:51:00 [place] [address] Patient Name: ILIR LAWRENCE MR #: [id number] : 1930 Age/Sex: 88/M Req #: [id number] Adm Physician: Ordered by: JOSIE VAZQUEZ MD Report #: [id number] Location: MRI Room/Bed: Procedure: [id number] MRI/MRI BRAIN WO Exam Date: Exam Time: [...] 12:54 PM Dictated By: BLAKE RAJAN MD 1258 Transcribed By: ARTURO on 05/07/19 1254 COPY TO: JOSIE VAZQUEZ MD GLUBED 2018-09-05 13:00:00 Test Item GLUBED (test code = GLUBED) 115 mg/dL 74-106 H Performed by certified injection molding operator at [facility] [id number] 10:46:00* Test Item Value Reference Range Interpretation Comments GLUBED (test code = GLUBED) 239 mg/dL 74-106 H Performed by certified injection molding operator at [facility] [id number] 10:45:00* Test Item Value Reference Range Interpretation Comments GLUBED (test code = GLUBED) 165 mg/dL 74-106 H Performed by certified injection molding operator at [facility] [id number] 21:40:00* Test Item Value Reference Range Interpretation Comments GLUBED (test code = GLUBED) 262 mg/dL 74-106 H [facility] [id number] 18:24:00* Test Item Value Reference Range Interpretation Comments GLUBED (test code = GLUBED) 308 mg/dL 74-106 H [facility] CBC W/AUTO [id number] 15:43:00* Test Item Value Reference Range Interpretation [...] = MDIFF) NO, ONLY SCAN NEEDED DIFFERENTIAL [id number] 15:43:00* Test Item Value Reference Range Interpretation Comments STAIN ACCEPTABILITY (test code = STN ACCEPTABLE) STAIN ACCEPTABLE HYPOCHROMIA (test code = HYPO) 1+ POIKILOCYTOSIS (test code = POIK) 1+ ELLIPTOCYTES (test code = ELL) 1+ CRENATED CELLS (test code = CREN) 1+ PLATELET ESTIMATE (test code = PLTEST) ADEQUATE PLATELET MORPHOLOGY (test code = PLTMORPH) NORMAL [id number] 13:48:00* Test Item Value Reference Range Interpretation Comments GLUBED (test code = GLUBED) 305 mg/dL 74-106 H Performed by certified injection molding operator at [facility] BASIC METABOLIC [id number] 11:53:00* Test Item Value Reference Range Interpretation [...] CA) 9.2 mg/dL 8.5-10.1 N CBC W/AUTO [id number] 11:26:00* Test Item Value Reference Range Interpretation [...] = MDIFF) NO, ONLY SCAN NEEDED DIFFERENTIAL [id number] 11:26:00* Test Item Value Reference Range Interpretation Comments STAIN ACCEPTABILITY (test code = STN ACCEPTABLE) CABOT RINGS (test code = CAB) MORPHOLOGY COMMENT (test code = MOC) PLATELET ESTIMATE (test code = PLTEST) PLATELET MORPHOLOGY (test code = PLTMORPH) CBC W/AUTO [id number] 11:26:00* Test Item Value Reference Range Interpretation [...] = MDIFF) NO, ONLY SCAN NEEDED DIFFERENTIAL [id number] 11:26:00* Test Item Value Reference Range Interpretation Comments STAIN ACCEPTABILITY (test code = STN ACCEPTABLE) CABOT RINGS (test code = CAB) MORPHOLOGY COMMENT (test code = MOC) PLATELET ESTIMATE (test code = PLTEST) PLATELET MORPHOLOGY (test code = PLTMORPH) CBC W/AUTO [id number] 11:26:00* Test Item Value Reference Range Interpretation [...] = MDIFF) NO, ONLY SCAN NEEDED DIFFERENTIAL [id number] 11:26:00* Test Item Value Reference Range Interpretation Comments STAIN ACCEPTABILITY (test code = STN ACCEPTABLE) MORPHOLOGY COMMENT (test code = MOC) PLATELET ESTIMATE (test code = PLTEST) PLATELET MORPHOLOGY (test code = PLTMORPH) CBC W/AUTO [id number] 11:26:00* Test Item Value Reference Range Interpretation [...] = MDIFF) NO, ONLY SCAN NEEDED DIFFERENTIAL [id number] 11:26:00* Test Item Value Reference Range Interpretation Comments STAIN ACCEPTABILITY (test code = STN ACCEPTABLE) CABOT RINGS (test code = CAB) MORPHOLOGY COMMENT (test code = MOC) PLATELET ESTIMATE (test code = PLTEST) PLATELET MORPHOLOGY (test code = PLTMORPH) [id number] 09:09:00* Test Item Value Reference Range Interpretation Comments GLUBED (test code = GLUBED) 220 mg/dL 74-106 H Performed by certified injection molding operator at [facility] [id number] 23:45:00* Test Item Value Reference Range Interpretation Comments GLUBED (test code = GLUBED) 169 mg/dL 74-106 H Performed by certified injection molding operator at [facility] [id number] 17:12:00* Test Item Value Reference Range Interpretation Comments GLUBED (test code = GLUBED) 83 mg/dL 74-106 N Performed by certified injection molding operator at [facility] [id number] 15:08:00* Test Item Value Reference Range Interpretation Comments GLUBED (test code = GLUBED) 123 mg/dL 74-106 H Performed by certified injection molding operator at [facility] [id number] 09:14:00* Test Item Value Reference Range Interpretation Comments GLUBED (test code = GLUBED) 75 mg/dL 74-106 N Performed by certified injection molding operator at [facility] [id number] 20:44:00* Test Item Value Reference Range Interpretation Comments GLUBED (test code = GLUBED) 184 mg/dL 74-106 H Performed by certified injection molding operator at [facility] [id number] 18:00:00* Test Item Value Reference Range Interpretation Comments TROPONIN-I (test code = TROPI) <0.015 ng/mL 0-0.045 N COMMENTS TO PREPARER: COLLECT 3 HOURS AFTER PREVIOUS [id number] 13:55:00* Test Item Value Reference Range Interpretation Comments GLUBED (test code = GLUBED) 148 mg/dL 74-106 H Performed by certified injection molding operator at [facility] [id number] 13:36:00* Test Item Value Reference Range Interpretation Comments TROPONIN-I (test code = TROPI) <0.015 ng/mL 0-0.045 N COMMENTS TO PREPARER: COLLECT 3 HOURS AFTER PREVIOUS AYIUXIRGSF0G6171-19-50 13:15:00* Test Item Value Reference Range Interpretation [...] result is a direct measurement.========= B-TYPE NATRIURETIC YVNWGYX3574-58-71 10:04:00* Test Item Value Reference Range Interpretation Comments B-TYPE NATRIURETIC PEPTIDE (test code = BNP) 27.05 pgram/mL 0-100 N BASIC METABOLIC TFWQQ1417-17-24 09:00:00* Test Item Value Reference Range Interpretation [...] code = CA) 9.5 mg/dL 8.5-10.1 N TVQQSLWO-R5280-81-13 09:00:00* Test Item Value Reference Range Interpretation Comments TROPONIN-I (test code = TROPI) <0.015 ng/mL 0-0.045 N CBC W/O TXAZ1648-30-90 08:46:00* Test Item Value Reference Range Interpretation [...] fL 6.7-11.0 H - XR CHEST 1 W2560-69-11 08:12:00 FAX: August Mercado MD [phone] [place]: B St: REG Name: ILIR VO [facility] : 09/13/18 31 Age/S: 87/M [address] [facility] Unit #: [id number] Loc: [place] [address] Phys: August Mercado MD Acct: [id number] Dis Date: Status: REG ER PHONE #: [phone] Exam Date: 09/02/2018 0750 FAX #: [phone] Reason: Shortness of Breath EXAMS: CPT CODE: [id number] XR CHEST 1 V 66128 REASON FOR EXAM: Shortness of Breath EXAM [...] M.D. CC: August Mercado MD Technologist: SIGRID ROBIN RT(R) Trnscrd Date/Time/By: 09/02/2018 (811) : By: AamirVTL Orig Print D/T: S: 09/02/2018 (16) PAGE 1 Signed Report Bedside Luxcoda1555-86-11 15:53:00* Test Item Value Reference Range Interpretation Comments Bedside Glucose (test code = 88883-3) 260 70-120 Meter ID: [id number] [facility] CenterVancomycin Level Tdwqfu9694-44-47 13:20:00* Test Item Value Reference Range Interpretation Comments Vancomycin Level Trough (test code = 4092-3) 10.7 5.0-10.0 Results repeated and called to TORRI DEMPSEY at 1319 on 07/10/18 by MATTHEW Mckeon Read back and verified.[facility] 2018-07-10 06:24:00* Test Item Value Reference Range Interpretation Comments Sodium Level (test code = 2951-2) 139 136-[address] [facility] HospitalPotassium Xchad8915-57-67 06:24:00* Test Item Value Reference Range Interpretation Comments Potassium Level (test code = 2823-3) 3.2 3.5-5.[address] [facility] [facility] HospitalChloride Tnlps7888-18-36 06:24:00* Test Item Value Reference Range Interpretation Comments Chloride Level (test code = 2075-0) 105 98-[address] [facility] [facility] HospitalCarbon Dioxide Gxxbz7874-56-74 06:24:00* Test Item Value Reference Range Interpretation Comments Carbon Dioxide Level (test code = 2028-9) 22 22-[address] [facility] [facility] [facility] HospitalAnion Ciz4844-92-01 06:24:00* Test Item Value Reference Range Interpretation Comments Anion Gap (test code = 50979-6) 15.2 8-[address] [facility] HospitalBlood Urea Pggvwkjd6447-57-03 06:24:00* Test Item Value Reference Range Interpretation Comments Blood Urea Nitrogen (test code = 3094-0) 15 7-[address] [facility] [facility] HospitalCreatinine2019-02-18 06:24:00* Test Item Value Reference Range Interpretation Comments Creatinine (test code = 2160-0) 0.79 0.72-1.[address] [facility] HospitalBUN/Creatinine Aqnew6691-94-68 06:24:00* Test Item Value Reference Range Interpretation Comments BUN/Creatinine Ratio (test code = 3097-3) 19 6- [facility] HospitalEstimat Glomerular Filtration Rate 2018-07-10 06:24:00* Test Item Value Reference Range Interpretation Comments Estimat Glomerular Filtration Rate (test code = 900480123) > 60 >60 Ranges were taken from the National Kidney Disease Education Program and the [facility] Kidney Foundation literature.Reference ranges:60 or greater: Oduqtv76-88 ( for 3 consecutive months): Chronic kidney disease 15 or less: Kidney failureCHI St[facility] HospitalGlucose Mrboj4353-67-44 06:24:00* Test Item Value Reference Range Interpretation Comments Glucose Level (test code = HZL1064) 81 74-[address] [facility] HospitalCalcium Jjlqk5040-12-47 06:24:00* Test Item Value Reference Range Interpretation Comments Calcium Level (test code = 69300-5) 8.8 8.4-10.[address] [facility] HospitalWhite Blood Ydegy1843-83-30 06:02:00* Test Item Value Reference Range Interpretation Comments White Blood Count (test code = 6690-2) 7.33 4.8-10.[address] [facility] HospitalRed Blood Kslas5923-23-14 06:02:00* Test Item Value Reference Range Interpretation Comments Red Blood Count (test code = 789-8) 3.23 4.3-5.[address] HospitalHemoglobin2019-02-18 06:02:00* Test Item Value Reference Range Interpretation Comments Hemoglobin (test code = 45803-7) 9.2 14.0-18.[address] [facility] HospitalHematocrit2019-02-18 06:02:00* Test Item Value Reference Range Interpretation Comments Hematocrit (test code = 4544-3) 28.9 38.2-49.[address] HospitalMean Corpuscular Kxofue5510-33-68 06:02:00* Test Item Value Reference Range Interpretation Comments Mean Corpuscular Volume (test code = 787-2) 89.5 81-[address] [facility] [facility] HospitalMean Corpuscular Kacnjqoqcm3846-29-38 06:02:00* Test Item Value Reference Range Interpretation Comments Mean Corpuscular Hemoglobin (test code = 785-6) 28.5 28-[address] [facility] HospitalMean Corpuscular Hemoglobin Concent 2018-07-10 06:02:00* Test Item Value Reference Range Interpretation Comments Mean Corpuscular Hemoglobin Concent (test code = 786-4) 31.8 31-[address] [facility] HospitalRed Cell Distribution Yqarr1989-53-76 06:02:00* Test Item Value Reference Range Interpretation Comments Red Cell Distribution Width (test code = 23788-1) 13.8 11.7 -14.[address] [facility] HospitalPlatelet Pbkpm0661-82-32 06:02:00* Test Item Value Reference Range Interpretation Comments Platelet Count (test code = 777-3) 354 140-[address] [facility] HospitalNeutrophils (%) (Auto)2018-07-10 06:02:00 * Test Item Value Reference Range Interpretation Comments Neutrophils (%) (Auto) (test code = 66918-9) 62.3 38.7-80.[address] HospitalLymphocytes (%) (Auto)2018-07-10 06:02:00 * Test Item Value Reference Range Interpretation Comments Lymphocytes (%) (Auto) (test code = 736-9) 22.1 18.0-39.[address] [facility] HospitalMonocytes (%) (Auto)2018-07-10 06:02:00* Test Item Value Reference Range Interpretation Comments Monocytes (%) (Auto) (test code = 5905-5) 10.4 4.4-11.[address] [facility] HospitalEosinophils (%) (Auto)2018-07-10 06:02:00 * Test Item Value Reference Range Interpretation Comments Eosinophils (%) (Auto) (test code = 713-8) 4.2 0.0-6.[address] [facility] HospitalBasophils (%) (Auto)2018-07-10 06:02:00* Test Item Value Reference Range Interpretation Comments Basophils (%) (Auto) (test code = 706-2) 0.7 0.0-1.[address] [facility] HospitalIM GRANULOCYTES %2018-07-10 06:02:00* Test Item Value Reference Range Interpretation Comments IM GRANULOCYTES % (test code = IM GRANULOCYTES %) 0.3 0.0- 1.[address] HospitalNeutrophils # (Auto)2018-07-10 06:02:00* Test Item Value Reference Range Interpretation Comments Neutrophils # (Auto) (test code = 751-8) 4.6 2.1-6.[address] [facility] HospitalLymphocytes # (Auto)2018-07-10 06:02:00* Test Item Value Reference Range Interpretation Comments Lymphocytes # (Auto) (test code = 47193-7) 1.6 1.0-3.[address] [facility] HospitalMonocytes # (Auto)2018-07-10 06:02:00* Test Item Value Reference Range Interpretation Comments Monocytes # (Auto) (test code = 742-7) 0.8 0.2-0.[address] [facility] [facility] HospitalEosinophils # (Auto)2018-07-10 06:02:00* Test Item Value Reference Range Interpretation Comments Eosinophils # (Auto) (test code = 711-2) 0.3 0.0-0.[address] [facility] HospitalBasophils # (Auto)2018-07-10 06:02:00* Test Item Value Reference Range Interpretation Comments Basophils # (Auto) (test code = 704-7) 0.1 0.0-0.[address] [facility] HospitalAbsolute Immature Granulocyte (auto 2018-07-10 06:02:00* Test Item Value Reference Range Interpretation Comments Absolute Immature Granulocyte (auto (darren t code = Absolute Immature Granulocyte (auto) 0.[address] [facility] [facility] HospitalCT ABDOMEN/PELVIS SHG6421-61-56 13:52:00 [facility] [address] [place] [address] Patient Name: ILIR LAWRENCE MR #: [id number] : 1930 Age/Sex: 87/M Req #: [id number] Adm Physician: AGA HOPSON MD Ordered by: ALESSANDRO RAMIREZ MD Report #: [id number] [facility]: [facility]URG Room/Bed: [facility] Procedure: [id number] CT/C T ABDOMEN/PELVIS WOW Exam Date: Exam [...] 07/06/181405 COPY TO: ALESSANDRO RAMIREZ MD Wound Nstfgkf4164-47-71 06:26:00* Test Item Value Reference Range Interpretation Comments Wound Culture (test code = 6462-6) Organism: STAPHYLOCOCCUS AUREUS- MRSA [facility] HospitalBlood Ulcmdaz7307-08-17 08:52:00* Test Item Value Reference Range Interpretation Comments Blood Culture (test code = 85544743) NO GROWTH AFTER 5 DAYS, FINAL REPORT [facility] HospitalTotal Crflszncw6837-25-70 07:08:00* Test Item Value Reference Range Interpretation Comments Total Bilirubin (test code = 1975-2) 0.7 0.2-1.[address] [facility] HospitalAspartate Amino Transf (AST/SGOT) 2018-07-01 07:08:00* Test Item Value Reference Range Interpretation Comments Aspartate Amino Transf (AST/SGOT) (test code = Aspartate Amino Transf (AST/SGOT)) 7 5-[address] [facility] HospitalAlanine Aminotransferase (ALT/SGPT) 2018-07-01 07:08:00* Test Item Value Reference Range Interpretation Comments Alanine Aminotransferase (ALT/SGPT) (test code = 1742-6) 9 0-[address] [facility] [facility] HospitalTotal Fxtxmoq8886-74-89 07:08:00* Test Item Value Reference Range Interpretation Comments Total Protein (test code = 2885-2) 6.5 6.5-8.[address] [facility] HospitalAlbumin2019-02-09 07:08:00* Test Item Value Reference Range Interpretation Comments Albumin (test code = 1751-7) 2.6 3.5-5.[address] [facility] HospitalGlobulin2019-02-09 07:08:00* Test Item Value Reference Range Interpretation Comments Globulin (test code = 20176-2) 3.9 2.3-3.[address] [facility] [facility] HospitalAlbumin/Globulin Jlpnx2308-39-50 07:08:00 * Test Item Value Reference Range Interpretation Comments Albumin/Globulin Ratio (test code = 1759-0) 0.7 0.8-2.[address] [facility] HospitalAlkaline Gereagjvzfs6993-07-86 07:08:00* Test Item Value Reference Range Interpretation Comments Alkaline Phosphatase (test code = 6768-6) 101 40-[address] [facility] HospitalCreatine Kinase BP1246-02-85 06:48:00* Test Item Value Reference Range Interpretation Comments Creatine Kinase MB (test code = 56676-8) 1.30 0-5.[address] HospitalTroponin C5919-83-99 06:48:00* Test Item Value Reference Range Interpretation Comments Troponin I (test code = XFX4598) 0.006 0-0.[address] HospitalCreatine Zazfan1677-32-36 06:37:00* Test Item Value Reference Range Interpretation Comments Creatine Kinase (test code = 2157-6) 44 30-[address] [facility] HospitalUrine WWG9129-66-84 10:09:00* Test Item Value Reference Range Interpretation Comments Urine WBC (test code = 5821-4) NONE 0-[address] [facility] HospitalUrine HHF3135-77-49 10:09:00* Test Item Value Reference Range Interpretation Comments Urine RBC (test code = 92958-1) NONE 0-[address] [facility] [facility] HospitalUrine Mdcasdhy1559-50-93 10:09:00* Test Item Value Reference Range Interpretation Comments Urine Bacteria (test code = 61330-2) RARE NONE [facility] HospitalUrine Epithelial Wgqjq8114-65-45 10:09:00 * Test Item Value Reference Range Interpretation Comments Urine Epithelial Cells (test code = 62431-2) RARE NONE [facility] HospitalUrine Hyaline Pyezs1417-48-21 10:09:00* Test Item Value Reference Range Interpretation Comments Urine Hyaline Casts (test code = 26322-0) 2-5 0-[address] [facility] Trhsv4975-68-31 10:09:00* Test Item Value Reference Range Interpretation Comments Urine Mucus (test code = 8247-9) RARE RARE [facility] HospitalUrine Epdhd0987-75-77 09:51:00* Test Item Value Reference Range Interpretation Comments Urine Color (test code = 5778-6) YELLOW YELLOW [facility] Hqvdrtf1547-39-21 09:51:00* Test Item Value Reference Range Interpretation Comments Urine Clarity (test code = 04010-7) HAZY CLEAR [facility] HospitalUrine Specific Zutovrc1198-19-01 09:51:00 * Test Item Value Reference Range Interpretation Comments Urine Specific Ulysses (test code = 5811-5) 1.030 1.010-1.[address] [facility] HospitalUrine nD5752-18-85 09:51:00* Test Item Value Reference Range Interpretation Comments Urine pH (test code = 92251-7) 6 5-[address] [facility] HospitalUrine Leukocyte Lhmqupyw6982-21-52 09:51:00* Test Item Value Reference Range Interpretation Comments Urine Leukocyte Esterase (test code = 5799-2) NEGATIVE NEGATIVE [facility] HospitalUrine Rtduuov5450-16-82 09:51:00* Test Item Value Reference Range Interpretation Comments Urine Nitrite (test code = 76271-1) NEGATIVE NEGATIVE [facility] HospitalUrine Jpiszit0347-62-88 09:51:00* Test Item Value Reference Range Interpretation Comments Urine Protein (test code = 5804-0) NEGATIVE NEGATIVE [facility] Glucose (UA)2018-06-30 09:51:00* Test Item Value Reference Range Interpretation Comments Urine Glucose (UA) (test code = 2349-9) 3+ NEGATIVE [facility] HospitalUrine Yllzzot0827-64-60 09:51:00* Test Item Value Reference Range Interpretation Comments Urine Ketones (test code = 24534-3) NEGATIVE NEGATIVE [facility] HospitalUrine Xingxfvyrtqq0215-70-67 09:51:00* Test Item Value Reference Range Interpretation Comments Urine Urobilinogen (test code = 07152-9) 0.2 0.2-[address] [facility] HospitalUrine Gvvyzicxr3118-16-31 09:51:00* Test Item Value Reference Range Interpretation Comments Urine Bilirubin (test code = 1978-6) NEGATIVE NEGATIVE [facility] HospitalUrine Ugpsp0500-30-93 09:51:00* Test Item Value Reference Range Interpretation Comments Urine Blood (test code = 67766-2) NEGATIVE NEGATIVE [facility] HospitalCHEST SINGLE (PORTABLE)2018-06-30 09:41:00 [facility] [address] [place] [address] Patient Name: ILIR LAWRENCE MR #: [id number] : 1930 Age/Sex: 87/M Req #: [id number] Adm Physician: Ordered by: KIRSTEN YIP MD Report #: [id number] Location: ER Room/Bed: Procedure: [id number] DX/ CHEST SINGLE (PORTABLE) Exam Date: 06/30/18 [...] on 06/30/2018 9 :44 AM Dictated By: AKASH BHATIA MD 3 Transcribed By: ARTURO on 06/30/18943 COPY TO: KIRSTEN CALHOUN MD Magnesium Shsga7839-85-64 09:36:00* Test Item Value Reference Range Interpretation Comments Magnesium Level (test code = 90612-3) 1.7 1.3-2.[address] HospitalB-Type Natriuretic Vsvemoa5865-39-77 09:28:00* Test Item Value Reference Range Interpretation Comments B-Type Natriuretic Peptide (test code = 12291-8) 55.9 0-[address] [facility] HospitalLactic Acid Udetw5931-73-25 09:20:00* Test Item Value Reference Range Interpretation Comments Lactic Acid Level (test code = Lactic Acid Level) 14.3 4.5- 19.[address] [facility] [facility] HospitalProthrombin Wext5446-97-21 09:08:00* Test Item Value Reference Range Interpretation Comments Prothrombin Time (test code = 5902-2) 14.0 11.9-14.[address] HospitalProthromb Time International Ratio 2018-06-30 09:08:00* Test Item Value Reference Range Interpretation Comments Prothromb Time International Ratio (test code = 6301-6) 0.99 Oral Anticoagulant Therapy INR Values:1. Low Intensity Therapy 1.5 - 2.02 . Moderate Intensity Therapy 2.0 - 3.03. High Intensity Therapy(1) 2.5 - 3. 54. High Intensity Therapy(2) 3.0 - 4.05. Panic Value INR > 5.[address] [facility] HospitalActivated Partial Thromboplast Time 2018-06-30 09:08:00* Test Item Value Reference Range Interpretation Comments Activated Partial Thromboplast Time (test code = 93870-9) 35.4 23.8-35.[address] [facility] HospitalMODIFIED BA. CVHXNAD9544-22-74 13:23:00 [place] [address] Patient Name: ILIR LAWRENCE MR #: [id number] : 1930 Age/Sex: 87/M Req #: [id number] Adm Physician: JOAQUIN YUNG MD Ordered by: JOAQUIN YUNG MD Report #: [id number] Location: MED/SURG2 Room/Bed: [employer] Procedure: [id number] DX/MO AYDEN BA. SWALLOW Exam Date: 06/26/18 [...] nically Signed By: AKASH BHATIA MD on 06/26/181325 Transcribed By: ARTURO on 6 COPY TO: JOAQUIN YUNG MD Erythrocyte Sedimentation Zgyr2201-22-37 11:43:00* Test Item Value Reference Range Interpretation Comments Erythrocyte Sedimentation Rate (test code = 4537-7) 95 0- [address] [facility] [facility] HospitalHemoglobin A1c Stwazdv4593-50-38 10:46:00 * Test Item Value Reference Range Interpretation Comments Hemoglobin A1c Percent (test code = Hemoglobin A1c Percent) 7.2 4.0-7.[address] [facility] HospitalTriglycerides Eqlfi8203-26-26 10:46:00* Test Item Value Reference Range Interpretation Comments Triglycerides Level (test code = 2571-8) 36 0-[address] [facility] HospitalCholesterol Ujppp7442-61-78 10:46:00* Test Item Value Reference Range Interpretation Comments Cholesterol Level (test code = 2093-3) 98 0-199 Less than 200 mg/dL Low Ixjz179 - 239 mg/dL Borderline Xtql489 m g/dl and greater High Risk [facility] HospitalLDL Tjsqucaxngr3695-42-42 10:46:00* Test Item Value Reference Range Interpretation Comments LDL Cholesterol (test code = 2089-1) 42 60-[address] [facility] HospitalHDL Qnzmcsxmhcd5445-91-11 10:46:00* Test Item Value Reference Range Interpretation Comments HDL Cholesterol (test code = 2085-9) 49 40-[address] [facility] HospitalCholesterol/HDL Buqto3454-48-30 10:46:00 * Test Item Value Reference Range Interpretation Comments Cholesterol/HDL Ratio (test code = 9830-1) 2.0 3.9-4.[address] [facility] HospitalInfluenza Virus Types A,B Antigen 2018-06-20 11:45:00* Test Item Value Reference Range Interpretation Comments Influenza Virus Types A,B Antigen (test code = 62877-5) NEGATIVE NEGATIVE [facility] Center[facility] ([facility])2018-06-20 11:41:00 [facility] [address] [place] [address] Patient Name: ILIR LAWRENCE MR #: [id number] : 1930 Age/Sex: 87/M Req #: [id number] Adm Physician: Ordered by: KIRSTEN YIP MD Report #: [id number] Location: ER Room/Bed: Procedure: [id number] DX/ CHEST SINGLE (PORTABLE) Exam Date: 06/20/18 [...] COPY TO: Ulises YIP MD FOOT LEFT FGPQZJJJ7836-44-08 11:40:00 [place] [address] Patient Name: ILIR LAWRENCE MR #: [id number] : 1930 Age/Sex: 87/M Req #: [id number] Adm Physician: Ordered by: KIRSTEN YIP MD Report #: [id number] Location: ER Room/Bed: Procedure: [id number] DX/ FOOT LEFT COMPLETE Exam Date: 06/20/18 [...] DO 1206 Tr anscribed By: ARTURO on 06/20/18 1206 COPY TO: KIRSTEN YIP MD Group A Streptococcus Mcvprp6950-36-02 11:36:00* Test Item Value Reference Range Interpretation Comments Group A Streptococcus Screen (test code = 98068-1) NEGATIVE NEG ATIVE [facility] CenterMRI BRAIN WO [facility] [address] [place] [address] Patient Name: ILIR LAWRENCE MR #: [id number] : 1930 Age/Sex: 87/M Req #: [id number] Adm Physician: Ordered by: JOSIE VAZQUEZ MD Report #: [id number] Location: MRI Room/Bed: Procedure: [id number] MRI/MRI BRAIN WO Exam Date: Exam Time: [...]
--- OUTSIDE RECORDS SUMMARY | 2019-10-09 16:35 | XMS REPORT | Clinical Summary ---
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
--- NOTE | 2019-10-09 16:58 | NUR ---
RECEIVED THE PATIENT FROM ER VIA PT'S OWN WHEELCHAIR. PT IS ALERT, NO S/S OF DISTRESS. CALL LIGHT WITHIN REACH AND INSTRUCTED PT/DAUGHTER TO CALL RN FOR HELP. PT ORIENTED TO ROOM. DAUGHTER IS AT THE BEDSIDE.
[2019-10-09 17:03] VITALS: BP 142/58
[2019-10-09 17:13] VITALS: BP 142/58
[2019-10-09] MEDS ORDERED: METOPROLOL TART25 MG PO (17:28)
[2019-10-09] MEDS ORDERED: TRAZODONE HCL50 MG PO (17:28)
[2019-10-09] MEDS ORDERED: ARICEPT5 MG PO (17:28)
[2019-10-09] MEDS ORDERED: NAMENDA10 MG PO (17:28)
[2019-10-09] MEDS ORDERED: FAMOTIDINE20 MG PO (17:28)
[2019-10-09] MEDS ORDERED: METFORMIN HCL500 MG PO (17:28)
[2019-10-09] MEDS ORDERED: FLOMAX0.4 MG PO (17:28)
[2019-10-09] MEDS ORDERED: RISPERIDONE0.5 MG PO (17:28)
[2019-10-09 17:42] VITALS: BP 142/58
[2019-10-09] MEDS ORDERED: HYDRALAZINE HCL 20 MG/ML VIAL IV PRN (18:30)
[2019-10-09] MEDS ORDERED: LORAZEPAM INJ 2 MG/ML VIAL IV PRN (18:30)
[2019-10-09] MEDS ORDERED: DEXTROSE 50% SYRINGE 50 ML IV PRN (18:30)
[2019-10-09 20:30] VITALS: BP 142/64
[2019-10-09] MEDS: INSULIN LISPRO 100 UNIT/1 ML 3ML VIAL SQ SCH (21:00)
[2019-10-09] MEDS: PIPER-TAZ 3.375 GM 50 ML IV SCH (21:12)
[2019-10-09] MEDS: TRAZODONE HCL 50 MG TAB PO SCH (21:12)
[2019-10-09] MEDS: DONEPEZIL HCL 5 MG TAB PO SCH (21:12)
[2019-10-09 22:39] VITALS: BP 142/64
[2019-10-09 23:30] VITALS: BP 126/59
[2019-10-10] VITALS (7 sets, daily range): BP systolic 112–131; BP diastolic 50–62
[2019-10-10 05:28] LABS: BASOPHILS # (AUTO) 0.1 (0.0-0.1); BASOPHILS % 0.7 % (0.0-1.0); EOSINOPHILS # (AUTO) 0.4 (0.0-0.4); EOSINOPHILS % 5.1 % (0.0-6.0); HEMATOCRIT 31.1 % (38.2-49.6); HEMOGLOBIN 9.8 g/dL (14.0-18.0); LYMPHOCYTES # (AUTO) 1.8 (1.0-3.2); LYMPHOCYTES % 21.6 % (18.0-39.1); MEAN CORPUSCULAR HEMOGLOBIN 29.6 pg (28-32); MEAN CORPUSCULAR HGB CONC 31.5 g/dL (31-35); MONOCYTES # (AUTO) 0.5 (0.2-0.8); MONOCYTES % 6.3 % (4.4-11.3); NEUTROPHILS # (AUTO) 5.6 (2.1-6.9); NEUTROPHILS % 65.9 % (38.7-80.0); PLATELET COUNT 241 x10e3/uL (140-360); RED BLOOD COUNT 3.31 x10e6/uL (4.3-5.7); RED CELL DISTRIBUTION WIDTH 13.3 % (11.7-14.4)
[2019-10-10 05:59] LABS: ALBUMIN 2.9 g/dL (3.5-5.0); ALBUMIN/GLOBULIN RATIO 0.9 (0.8-2.0); ALKALINE PHOSPHATASE 89 IU/L (40-150); ANION GAP 16.3 mmol/L (8-16); BLOOD UREA NITROGEN 26 mg/dL (7-26); BUN/CREATININE RATIO 27 (6-25); CALCIUM 8.8 mg/dL (8.4-10.2); CARBON DIOXIDE 21 mmol/L (22-29); CHLORIDE 107 mmol/L (98-107); CREATININE, SERUM 0.96 mg/dL (0.72-1.25); EST GLOMERULAR FILTRATION RATE > 60 ML/MIN (60-); GLUCOSE 79 mg/dL (74-118); POTASSIUM 4.3 mmol/L (3.5-5.1); SODIUM 140 mmol/L (136-145)
[2019-10-10 06:00] LABS: ALANINE AMINOTRANSFERASE < 6 IU/L (0-55)
[2019-10-10] MEDS: PIPER-TAZ 3.375 GM 50 ML IV SCH ×5 (06:00→23:57)
[2019-10-10 06:32] LABS: CREATINE KINASE 19 IU/L (30-200)
--- NOTE | 2019-10-10 07:05 | NUR ---
RCD PT AT BED PT IS ALERT AND ORIENTED 1-2 RESTING ON BED IV PATENT BED LOW AND LOCKED CALL LIGHT IN REACH
[2019-10-10] MEDS: INSULIN LISPRO 100 UNIT/1 ML 3ML VIAL SQ SCH ×4 (07:30→21:39)
[2019-10-10] MEDS: FAMOTIDINE 20 MG TAB PO SCH ×2 (07:30→16:30)
[2019-10-10] MEDS: TAMSULOSIN HCL 0.4 MG CAP PO SCH (09:00)
[2019-10-10] MEDS: MEMANTINE 10 MG TAB PO SCH (09:00)
[2019-10-10] MEDS: RISPERIDONE 0.5 MG TAB PO SCH (09:00)
[2019-10-10] MEDS: METOPROLOL TARTRATE 25 MG TAB PO SCH (09:00)
[2019-10-10] MEDS: TRAMADOL HCL 50 MG TAB PO SCH ×2 (09:00→17:00)
--- NOTE | 2019-10-10 12:52 | NUR ---
WOUND CARE SCREENING COMPLETE NO NEW WOUND OR SKIN CONDITIONS NOTED PATIENT REMAINS ON MODERATE PUP STATUS AND INTERVENTIONS Addendum: 10/10/19 at 1254 by Max Orozco RN Amended: Links added.
--- NOTE | 2019-10-10 14:00 | NUR ---
AC TO RADIOLOGY THEY ARE NOT ABLE TO DO MRI ON THE WRIST PAGED AND NOTIFIED JERICHO ANAYA
[2019-10-10 15:00] LABS: CREATINE KINASE 20 IU/L (30-200)
--- NOTE | 2019-10-10 15:50 | NUR ---
PAGED HIS DAUGHTER REGAN TO GET THE CONSENT FOR CT ABDOMEN AND PELIVIS WITH CONTRAST AND LEFT THE MESSAGE
--- NOTE | 2019-10-10 18:17 | Diagnostic Imaging Report ---
EXAMINATION: CT scan of the chest with contrast. TECHNIQUE: Spiral CT images of the chest were performed from the lung apices to the level of the adrenal glands after the intravenous administration of 100 cc of Isovue 370. Coronal and sagittal reformatted images were obtained. COMPARISON: CT abdomen and pelvis with and without contrast 07/06/2018 CLINICAL HISTORY:Rule out malignancy, history of chronic dementia, DISCUSSION: LINES/TUBES: None. LUNGS AND AIRWAYS: Mild right lower lobe dependent atelectasis. Linear opacity in the superior segment of the right lower lobe consistent with subsegmental atelectasis. No pulmonary nodules, masses or consolidation. Rounded 1.2 cm density in the dependent portion of the trachea near the ozzie (series 4, image 37), which measures fluid density and likely represents inspissated mucus. Rest of the airways is grossly clear. PLEURA: No pneumothorax or pleural effusions. HEART AND MEDIASTINUM: The thyroid gland is normal. Heart size is normal. No pericardial effusion. Atherosclerotic calcification of the aortic valve's, coronary arteries and thoracic aorta. Aorta is nonaneurysmal. Main pulmonary artery is normal in caliber. LYMPH NODES: There is no mediastinal, hilar or axillary lymphadenopathy. ABDOMEN: Please see CT of abdomen and pelvis performed same day for further detail. BONES AND SOFT TISSUES: No aggressive lytic or suspicious focal sclerotic lesions. Multilevel degenerated discs in the thoracic and upper lumbar spine worse at T9-T12. Soft tissues are grossly unremarkable. IMPRESSION: 1. Mild right lower lobe dependent atelectasis. No consolidation or effusion. Signed by: Dr. Leighton Nieves M.D. on 10/10/2019 6:14 PM
--- NOTE | 2019-10-10 18:40 | NUR ---
ORTHOPEDIC CONSULTATION 89 year old right hand dominant demented telugu speaking male admitted for cellulitis. Patient is pleasantly confused and unable to provide much history. 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 VS T 97.7 HR 51 RR 19 BP 112/52 O2 100% Left Hand: Sausage and deformed digits suggestive of inflammatory arthropathy. 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 No obvious fracture or dislocation 89 year old male with left wrist pain. Recommend MRI to evaluate for effusion At this time, it does not appear grossly infected and the patient is stable. It is likely that this could be from an inflammatory arthropathy Follow ESR & CRP, Blood Cultures DVT Prophylaxis If patient continues to be stable, can be followed up as outpatient with hand specialist Dr. Pardo in group. Thank you for the consultation Clementina Noriega, [facility].
--- NOTE | 2019-10-10 18:51 | NUR ---
PT RESTING ON BED BED SIDE REPORT GIVEN TO ONCOMING NURSE
[2019-10-10] MEDS ORDERED: SODIUM CHLORIDE 0.9% 50ML 50 ML ONE (19:00)
[2019-10-10] MEDS ORDERED: IOPAMIDOL 370 MG/ML 200 ML INFUS..BTL INJ ONE (19:00)
--- NOTE | 2019-10-10 19:04 | Diagnostic Imaging Report ---
EXAMINATION: CT of the abdomen and pelvis with contrast. TECHNIQUE: Spiral CT images of the abdomen and pelvis were performed from the lung bases to the lesser trochanters after the intravenous administration of 100 cc of Isovue 370 and the oral administration of water. Coronal and sagittal reformatted images were obtained. COMPARISON: CT abdomen and pelvis 07/06/2018 CLINICAL HISTORY:Rule out malignancy DISCUSSION: ABDOMEN/PELVIS: LOWER THORAX:Please see CT chest performed same date for further details HEPATOBILIARY: No focal hepatic lesions. No intra or extrahepatic biliary ductal dilation. GALLBLADDER: Stable 7-8 mm oval-shaped hyperdense focus in the dependent portion of the gallbladder lumen (series 2, image 44), consistent with a small stone. No wall thickening. SPLEEN: No splenomegaly. PANCREAS: No focal masses or ductal dilatation. Stable calcifications in the pancreatic parenchyma consistent with sequela of chronic pancreatitis. ADRENALS: No adrenal nodules. KIDNEYS/URETERS: No hydronephrosis, renal or ureteral calculi. Stable 1.5 x 1.5 cm mostly exophytic in the interpolar left kidney previously assessed as a hemorrhagic cyst. No solid enhancing masses. PELVIC ORGANS/BLADDER: Bladder is unremarkable, without focal lesions or wall thickening. PERITONEUM/RETROPERITONEUM: No free air or fluid. LYMPH NODES: No intra-abdominal, retroperitoneal, pelvic or inguinal lymphadenopathy. VESSELS: The celiac trunk,superior and inferior mesenteric and bilateral renal arteries are patent The portal, superior mesenteric and splenic veins are patent. Moderate to marked atherosclerotic calcification of the abdominal aorta, aortic branches and iliac vessels. GI TRACT: There is moderate dilation of the rectum, which measures approximately 7.7 cm in transverse diameter and contains prominent stool, which is essentially unchanged since the prior exam. Minimal wall thickening. No surrounding inflammatory changes. The appendix is dilated, measuring approximately 1.4 cm in diameter and has measured internal fluid density (coronal image 48 and series 2, image 65). No wall thickening. No surrounding periappendiceal inflammatory changes. This appearance is similar to prior exam. Rest of the bowel shows no dilation or obstruction. BONES AND SOFT TISSUE: Diffuse osteopenia. No aggressive lytic or suspicious focal sclerotic lesions. Markedly degenerated discs in the lumbosacral spine, worse at L2-L3 and L4-L5. 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 Deformities in the left sixth, seventh, eighth and ninth left ribs, consistent with old fractures. Mild generalized soft tissue edema. IMPRESSION: 1. Dilated appendix which is fluid-filled, however, no wall thickening or surrounding inflammatory changes to suggest acute appendicitis. This appearance is similar to prior exam. Diagnostic considerations include appendiceal mucocele. 2. Moderate dilation of the rectum with prominent stool, similar to prior exam, however, minimal wall thickening is noted. This may reflect mild stercoral colitis. Correlate for impaction. 3. Cholelithiasis, without CT evidence of cholecystitis. Signed by: Dr. Leighton Nieves M.D. on 10/10/2019 7:01 PM
[2019-10-10] MEDS: DONEPEZIL HCL 5 MG TAB PO SCH (19:55)
[2019-10-10] MEDS: TRAZODONE HCL 50 MG TAB PO SCH (19:55)
--- NOTE | 2019-10-10 22:05 | Consultation ---
DATE OF CONSULTATION: HISTORY OF PRESENT ILLNESS: This patient is an 89-year-old male, comes in with chief complaint of not feeling well and left elbow pain and swelling. The patient does have a history of dementia. History was taken mainly from the chart. The patient comes into the emergency room, where he was evaluated. His white count is 9.2, hemoglobin of 10, hematocrit of 33. His COVID-19 is pending. He had an x-ray of the wrist, which showed severe erosive changes throughout the distal radius, near-complete collapse of the scaphoid. He had a forearm x-ray, that showed degenerative joint disease. PAST MEDICAL HISTORY: As above. The patient was here back in June. 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 He does have underlying history of dementia. The patient has history of left osteoarthritis, left total knee arthroplasty, recently left toe amputation, benign prostatic hypertrophy, dementia, psychosis, peripheral vascular disease, diabetes mellitus with neuropathy. PAST SURGICAL HISTORY: As above. ALLERGIES: NKA. SOCIAL HISTORY: No smoking, drug abuse, or alcohol abuse. FAMILY HISTORY: Diabetes and hypertension. REVIEW OF SYSTEMS: Could not be obtained. MEDICATIONS: The patient is currently on Zosyn; Ultram; Risperdal; vancomycin, received one dose. LABORATORY DATA: Reviewed. Sodium 140, potassium 4.3, creatinine 0.96. PHYSICAL EXAMINATION: GENERAL: He is currently alert. VITAL SIGNS: Stable, afebrile. HEENT: He is not icteric. NECK: Supple. CHEST: Clear bilateral. HEART: S1 and S2. No S3, S4, or murmurs. ABDOMEN: Soft. EXTREMITIES: No edema. IMPRESSION: 1. Altered mental status. I am not so sure what his baseline. 2. Severe osteoarthritis, wrist swelling, probably inflammatory, doubt infection. I will discuss with the medical team. 3. Dementia. 4. Anemia of chronic disease. 5. We will follow. MD NICOLETTE Reese/MODL /[id number]
[2019-10-11] VITALS (8 sets, daily range): BP systolic 96–147; BP diastolic 46–69
[2019-10-11] MEDS: PIPER-TAZ 3.375 GM 50 ML IV SCH (04:55)
[2019-10-11 05:11] LABS: BASOPHILS # (AUTO) 0.1 (0.0-0.1); BASOPHILS % 0.9 % (0.0-1.0); EOSINOPHILS # (AUTO) 0.5 (0.0-0.4); HEMATOCRIT 31.5 % (38.2-49.6); LYMPHOCYTES % 26.1 % (18.0-39.1); MEAN CORPUSCULAR HEMOGLOBIN 29.2 pg (28-32); MEAN CORPUSCULAR HGB CONC 31.7 g/dL (31-35); MEAN CORPUSCULAR VOLUME 92.1 fL (81-99); MONOCYTES # (AUTO) 0.5 (0.2-0.8); MONOCYTES % 6.3 % (4.4-11.3); NEUTROPHILS # (AUTO) 4.6 (2.1-6.9); NEUTROPHILS % 60.3 % (38.7-80.0); PLATELET COUNT 239 x10e3/uL (140-360); RED BLOOD COUNT 3.42 x10e6/uL (4.3-5.7); RED CELL DISTRIBUTION WIDTH 13.3 % (11.7-14.4)
[2019-10-11 05:27] LABS: ALANINE AMINOTRANSFERASE 6 IU/L (0-55); ALBUMIN 2.8 g/dL (3.5-5.0); ALBUMIN/GLOBULIN RATIO 0.9 (0.8-2.0); ALKALINE PHOSPHATASE 83 IU/L (40-150); BLOOD UREA NITROGEN 17 mg/dL (7-26); BUN/CREATININE RATIO 23 (6-25); CALCIUM 8.6 mg/dL (8.4-10.2); CARBON DIOXIDE 23 mmol/L (22-29); CHLORIDE 102 mmol/L (98-107); CREATININE, SERUM 0.74 mg/dL (0.72-1.25); EST GLOMERULAR FILTRATION RATE > 60 ML/MIN (60-); GLUCOSE 65 mg/dL (74-118); SODIUM 135 mmol/L (136-145)
--- NOTE | 2019-10-11 06:39 | NUR ---
BSSR GIVEN TO ONCOMING SHIFT VERBALLY, NO DISTRESS NOTED, CALL LIGHT WITHIN REACH UPDATED WITH CURRENT LABS AND PLAN OF CARE
--- NOTE | 2019-10-11 07:05 | NUR ---
RCD PT AT BED PT IS ALERT AND ORIENTED RESTING ON BED IV PATENT BED LOW AND LOCKED CALL LIGHT IN REACH
[2019-10-11] MEDS: FAMOTIDINE 20 MG TAB PO SCH ×2 (07:30→16:30)
[2019-10-11] MEDS: INSULIN LISPRO 100 UNIT/1 ML 3ML VIAL SQ SCH ×4 (07:30→23:00)
[2019-10-11] MEDS: TAMSULOSIN HCL 0.4 MG CAP PO SCH (08:55)
[2019-10-11] MEDS: METOPROLOL TARTRATE 25 MG TAB PO SCH (08:55)
[2019-10-11] MEDS: TRAMADOL HCL 50 MG TAB PO SCH (08:56)
[2019-10-11] MEDS: RISPERIDONE 0.5 MG TAB PO SCH (08:56)
[2019-10-11] MEDS: MEMANTINE 10 MG TAB PO SCH (08:56)
--- NOTE | 2019-10-11 11:33 | Progress Note ---
DATE: SUBJECTIVE: The patient is seen and evaluated. Available labs and notes reviewed. Discussed with daughter. Questions answered. The patient is comfortable in bed. REVIEW OF SYSTEMS: Complaining of left wrist area and hand and distal and radial swelling and discomfort. Otherwise, no nausea, vomiting, fever, chills, chest pain, or shortness of breath. PHYSICAL EXAMINATION: VITAL SIGNS: Temperature 98.5, pulse is 58, respiration 20, and blood pressure 94/49. Clinically, no acute distress. GENERAL: Pleasant, comfortable in bed, no acute distress. CV: S1 and S2. CHEST: Equal expansion. Clear to auscultation. No acute distress. ABDOMEN: Soft and nontender. No distention. HEENT: Moist. No pallor. No JVD. EXTREMITIES: Left wrist, some swelling and discomfort. No erythema. No open wound. MEDICATIONS: Medication list reviewed and as far as Infectious Disease point of view, the patient is on Zosyn. MICROBIOLOGY: Blood culture negative on 10/09/2019. LABORATORY STUDIES: White count of 7.56, hemoglobin 10, and platelet 239. Sodium 135, potassium 4, and creatinine 0.74. Serology; coronavirus PCR pending from 10/09/2019. IMAGING: CT of the chest showed mild right lower lobe dependent atelectasis. No consolidation or effusion. CT of abdomen and pelvis showed dilated appendix, which is fluid-filled, however, no wall thickening or surrounding inflammatory changes to suggest acute appendicitis. This appearance is similar to prior exam. Diagnostic consideration includes appendical mucocele, also moderate dilation of the rectum and prominent stool similar to prior exam, maybe mild colitis. Cholelithiasis without CT evidence of cholecystitis. ASSESSMENT AND PLAN: 1. Altered mental status, seems to be improving per my discussion with the daughter. 2. Severe arthritis of the left wrist, probably inflammatory, most likely not infection. 3. Dementia. 4. Anemia of chronic disease. 5. Debility. 6. 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 Remains on Zosyn. Please refer to chart for more information. Discussed with Dr. Colmenares in details. MD NICOLETTE Reese/IVETT /[id number]
[2019-10-11] MEDS ORDERED: ACETAMINOPHEN/CODEINE 300MG - 30MG TAB PO PRN (12:00)
--- NOTE | 2019-10-11 16:12 | NUR ---
Nutrition Screen Note RD Recommendation for Physician: -Recommend regular diet Plan of Care: RD following, monitoring for tolerance and adequacy Nutrition reason for involvement: MD Consult Primary Diagnose(s): cellulitis of left arm, dementia, osteomyelitis PMH: osteomyelitis of his foot, dementia Ht: 61 in Wt:120 lb BMI: 22.7 kg/m2 IBW:[address] Assessment: (10/11/19) Chart reviewed. Labs and meds reviewed. Pt is an 89 year old male admitted with cellulitis of left arm, dementia, and osteomyelitis. Pt was sleeping at time of visit and no family members were present at bedside. Spoke to RN, who reports pt is eating well. It is recorded that pt has been consuming 75-100% of meals during admission. Unable to obtain weight history from pt. Pts last recorded weight in chart was over a year ago. No N/V/D/C or chewing/swallowing issues per RN. Will continue to monitor unless consulted sooner. Current Diet: ADA 1800 Malnutrition Evaluation (10/11/19) Unable to fully assess. Will re-evaluate at follow-up as appropriate. Diet Education Needs Assessment: Diet education not indicated. Nutrition Care Level: low Signed: Kath Montague, RD, LD
--- NOTE | 2019-10-11 18:43 | NUR ---
PT RESTING ON BED BED SIDE REPORT GIVEN TO ONCOMING NURSE
[2019-10-11] MEDS: TRAZODONE HCL 50 MG TAB PO SCH (21:21)
[2019-10-11] MEDS: DONEPEZIL HCL 5 MG TAB PO SCH (21:21)
[2019-10-12] VITALS (8 sets, daily range): BP systolic 103–148; BP diastolic 51–71
--- NOTE | 2019-10-12 06:26 | NUR ---
PATIENT RESTING COMFORTABLY IN BED NOD ISTRESS NOTED, BEDSIDE REPORT GIVEN TO ONCOMING DAYSHIFT NURSES, CALL LIGHT WITHIN REACH
--- NOTE | 2019-10-12 07:22 | NUR ---
BSSR GIVEN TO ONCOMING SHIFT RN NASRA, PATIENT SEEN SLEEPING, NO DISTRESS NOTED, UPDATE ON PLAN OF CARE
[2019-10-12] MEDS: FAMOTIDINE 20 MG TAB PO SCH ×2 (07:30→16:30)
[2019-10-12] MEDS: INSULIN LISPRO 100 UNIT/1 ML 3ML VIAL SQ SCH ×3 (07:30→16:57)
[2019-10-12] MEDS ORDERED: CEFTRIAXONE SOD 1 GM/NS 50 ML 50 ML IV SCH (09:00)
[2019-10-12] MEDS: TAMSULOSIN HCL 0.4 MG CAP PO SCH (09:42)
[2019-10-12] MEDS: METOPROLOL TARTRATE 25 MG TAB PO SCH (09:43)
[2019-10-12] MEDS: MEMANTINE 10 MG TAB PO SCH (09:43)
[2019-10-12] MEDS: RISPERIDONE 0.5 MG TAB PO SCH (09:43)
--- NOTE | 2019-10-12 09:51 | NUR ---
Met with pt's daughter Clarisa at bedside. She gave choice for [facility]. Signed choice letter placed in chart. Copy to Clarisa. Discussed IMM letter. She verbalized understanding. Signed copy in chart. Copy to Clarisa. SNF referral faxed to [facility] at [phone] / . Astrid with [facility] was notified of referral.
--- NOTE | 2019-10-12 10:35 | NUR ---
Pt's daughter at bedside. Pt's daughter states she is pt's caregiver and receives little help from other siblings. Provided hospitality and empathic listening. Provided information on how to reach batch analyst, if needed. No need to follow at this time. KASI WIENER Broadcast Meteorologist Spiritual Care Department O: [phone]
[2019-10-12] MEDS ORDERED: ONDANSETRON HCL 4 MG ORAL DISINTEGRATING TAB PO PRN (10:45)
--- NOTE | 2019-10-12 11:12 | Progress Note ---
DATE: SUBJECTIVE: The patient is seen and evaluated, discussed with the daughter, discussed with the nurse in the room. No new events overnight. REVIEW OF SYSTEMS: Still with the left rest area discomfort, eats well. Has bowel movement. No other complaints, but per my discussion with the daughter that the swelling has gone down. There is no worsening of the pain. PHYSICAL EXAMINATION: VITAL SIGNS: Temperature 98.6, pulse 64, respirations 16, and blood pressure 136/59. MEDICATIONS: The patient is started on Rocephin from ID point of view. LABORATORY STUDIES: No new CBC or BMP available. SEROLOGY: Coronavirus PCR, not detected, 10/09/2019. Microbiology and blood culture 10/09/2019 negative. IMAGING: No new radiology studies available. PHYSICAL EXAMINATION: GENERAL: Alert and oriented, no acute distress. CV: S1-S2. CHEST: Equal expansion. Clear to auscultation. No acute distress. HEENT: Moist. No pallor. No JVD. EXTREMITIES: Moves all. Left wrist area with some swelling, seems to be gone down, not much of a painful range of motion, but it is limited however. There is no erythema and no open wounds. The patient's right-hand has contracted fingers and educated daughter to put soft material including such as rolled-up towel to help the fingers to penetrate the palm of the patient's hand. ASSESSMENT AND PLAN: This 89-year-old gentleman with, 1. Left hand/wrist swelling. Radiology studies reviewed, most likely arthritic changes of the left wrist with inflammatory process and most likely not infection. 2. Altered mental status, seems to be resolved. The patient is back to the baseline. 3. Dementia. 4. Anemia of chronic disease. 5. Debility-multifactorial. The patient is started on Rocephin. Pending SNF evaluation. Discussed with attendings team. Continue with Rocephin, monitor patient clinically and follow with the labs. Please refer to chart for more information. Discussed with Dr. Colmenares in details. Dictated by Ayo Coy PA-C (Al) Tera Colmenares MD /MODL /[id number]
--- NOTE | 2019-10-12 16:23 | NUR ---
[facility] DISCHARGE INFORMATION PATIENT HAS BEEN ACCEPTED TO: [facility] [place] [address] [place] [address] ACCEPTING AIR BAG BUILDER: Dar KASPER MD: Dr. Peres ROOM: 415 [address] NURSE CALL REPORT TO: [phone] IMM SIGNED AND OBTAINED (if applicable): yes THE FOLLOWING DOCUMENTS MUST ACCOMPANY PATIENT FOR TRANSFER: copy of chart, transfer MAR COPIED CHART: Jie, critical care unit nurse RTF: completed and placed with pt's packet at nurses station [id number] DNR: n/a YINKA Mandel notified of bed. CM called pt's daughter Clarisa Wang and notified of bed. COVID assessment and PASRR faxed to facility. Copies in chart and packet for transfer.
--- NOTE | 2019-10-12 17:44 | Discharge Summary ---
ADMISSION DIAGNOSES: 1. Left arm pain and swelling. 2. Type 2 diabetes, uncontrolled. 3. Dementia. 4. Ambulatory dysfunction. DISCHARGE DIAGNOSES: 1. Left arm pain and swelling. 2. Type 2 diabetes, uncontrolled. 3. Dementia. 4. Ambulatory dysfunction. 5. Severe arthritis. HISTORY: Type 2 diabetes, PVD, dementia, BPH. SURGICAL HISTORY: Left 2nd toe amputation, neck surgery, bilateral knee surgery. FAMILY HISTORY: The patient's daughter, brother, mom and sisters have diabetes. The patient's daughter's brother and sister have cancer. SOCIAL HISTORY: Noncontributory. HOSPITAL COURSE: An 89-year-old male admits with complaints of left arm pain and swelling for the last week per daughter's report, she is unaware of any falls, trauma, or fever. He has dementia and is unable to tell me any history. CT of the brain was done, which showed no acute abnormalities. CT of the C-spine showed no fractures. X-ray of the elbow showed minimal degenerative changes. CT of the abdomen and pelvis was done to rule out malignancy, which showed no evidence as well as a CT of the chest, which showed no malignancy. Blood cultures were negative x48 hours. Initially, the patient was placed on Zosyn for severe osteomyelitis of the left wrist. Due to the patient being afebrile and white count being normal. Infectious Disease stopped the antibiotics and thought it was severe arthritis. After speaking with Dr. Peres, Rocephin was added back on and the patient will discharge with Rocephin for 2 weeks and Pain Management for severe arthritis. The patient's daughter understands discharge instructions and agrees to plan. Vital signs are stable. The patient is afebrile. Dictated by Aracely Geiger NP MD ISADORA Dunn/MODL /[id number]
--- NOTE | 2019-10-12 18:15 | NUR ---
Pt discharged to SNF at this time. Pt is aox1-2 able to verbalize basic needs. 0 s/s of acute distress noted at time of discharge. Report called to nurse who will be receiving pt. Family notified of discharge.
== END 2019-10-12 18:17 | DRG 554 ==
LOC: ER 12:45 → ERHOLD 15:20 → MED/SURG2 16:52
PROVIDERS: ADMIT Internal Medicine; ATTEND Internal Medicine
DX: M19.022 Primary osteoarthritis, left elbow (principal); M79.602 Pain in left arm; R26.9 Unspecified abnormalities of gait and mobility; F03.90 Unspecified dementia, unspecified severity, without behavioral disturbance, psychotic disturbance, mood disturbance, and anxiety; Z96.653 Presence of artificial knee joint, bilateral; D63.8 Anemia in other chronic diseases classified elsewhere; Z89.422 Acquired absence of other left toe(s); E11.40 Type 2 diabetes mellitus with diabetic neuropathy, unspecified
CPT/HCPCS: 36415; 70450; 71260; 72125; 74177; 80053; 82550; 82553; 82948; 83036; 83735; 84484; 85025; 85610; 85651; 85730; 86140; 87040; 87635; 97139; 99251; 99284; J0696; J2543; J3370; J7030; J7040; Q9967

== ENCOUNTER 2020-04-09 16:58 | Emergency (ER) | payer MEDICARE ==
[~2020-04-09] VITALS: Ht 154.9 cm; Wt 54.4 kg
[~2020-04-09 16:58] MED LIST changes: +ARICEPT5 MG PO; +METFORMIN HCL500 MG PO; +METOPROLOL TART25 MG PO; +NAMENDA10 MG PO
--- NOTE | 2020-04-09 18:11 | Emergency Department Note ---
History of Present Illnes History of Present Illness Chief Complaint: Laceration History of Present Illness This is a 89 year old male in from home with complaints of a laceration above his right eye that was caused by a fall at home. Per patient's daughter, the patient was sitting on the bed and just fell forward off of the bed. Patient has a history of dementia and is unable to provide any history or information. Per Daughter, no loss of consciousness was noted and the patient is not on blood thinners. Patient also has a contusion to his forehead above his left eye but no bleeding is noted there. Patient is not in any visible distress. . Historian: Family Member Arrival Mode: Car Street Openings Inspector Required: No Onset (how long ago): hour(s) (1) Location: head Quality: laceration Radiation: Reports non-radiation Severity: mild Onset quality: sudden Duration (how long): hour(s) (1) Timing of current episode: constant Progression: unchanged Chronicity: new Context: Reports trauma/injury (as above) Relieving factors: none Exacerbating factors: none Associated symptoms: Reports denies other symptoms Past Medical/Family History Physician Review I have reviewed the patient's past medical and family history. Any updates have been documented here. Past Medical History Recent Fever: No Clinical Suspicion of Infectio: No New/Unexplained Change in Ment: No Past Medical History: Diabetes, CHF, Other Mental Illness, Chronic Kidney Disease, Osteoarthritis Other Medical History: dementia Past Surgical History: Back Surgery Other Surgery: cardiac cath Social History Smoking Cessation: Never Smoker Counseling Performed: No Alcohol Use: None Any Illegal Drug Use: No Physically hurt or threatened: No Other Last Tetanus: utd Any Pre-Existing Lines (PICC,: No Review of Systems Review of Systems Constitutional: Reports no symptoms EENTM: Reports no symptoms Cardiovascular: Reports no symptoms Respiratory: Reports no symptoms Gastrointestinal: Reports no symptoms Genitourinary: Reports no symptoms Musculoskeletal: Reports as per HPI Integumentary: Reports no symptoms Neurological: Reports no symptoms Psychological: Reports no symptoms Endocrine: Reports no symptoms Hematological/Lymphatic: Reports no symptoms Physical Exam Related Data Allergies: Coded Allergies: No Known Allergies (Unverified , 06/20/18) Triage Vital Signs Vital Signs Date Time Temp Pulse Resp B/P (MAP) Pulse Ox O2 Delivery O2 Flow Rate FiO2 04/09/20 17:05 98.3 87 16 140/81 100 Room Air Vital signs reviewed: Yes Physical Exam CONSTITUTIONAL Constitutional: Present well-developed, Present well-nourished; Absent distressed HENT HENT: Present normocephalic, Present oropharynx clear/moist, Present nose normal, Present other (laceration lateral of right orbit) HENT L/R: Present left ext ear normal, Present right ext ear normal EYES Eyes: Reports PERRL, Reports conjunctivae normal NECK Neck: Present ROM normal PULMONARY Pulmonary: Present effort normal, Present breath sounds normal CARDIOVASCULAR Cardiovascular: Present regular rhythm, Present heart sounds normal, Present capillary refill normal, Present normal rate GASTROINTESTINAL Abdominal: Present soft, Present nontender, Present bowel sounds normal GENITOURINARY Genitourinary: Present exam deferred SKIN Skin: Present warm, Present dry MUSCULOSKELETAL Musculoskeletal: Present ROM normal NEUROLOGICAL Neurological: Present alert, Present oriented x 3, Present no gross motor or sensory deficits PSYCHOLOGICAL Psychological: Present mood/affect normal, Present judgement normal Results Imaging Imaging results reviewed: Yes Impressions Procedure: [id number] CT/CT MAXIO FAC/PARANAS WO Exam Date: 04/09/20 Exam Time: 1720 REPORT STATUS: Signed EXAMINATION: Head and face CT without contrast. HISTORY: 89-year-old male status post full: Head trauma, right eyebrow laceration COMPARISON: Head CT and cervical spine 10/09/2019 TECHNIQUE: Multidetector axial images were obtained without contrast from the foramen magnum to the vertex and over the face. Dose modulation, iterative reconstruction, and/or weight based adjustment of the mA/kV was utilized to reduce the radiation dose to as low as reasonably achievable. Image quality: Artifact from patient motion limits evaluation of the studies. Head CT findings: Skull: Grossly known acute displaced fractures. Minimal left forehead/supraorbital soft tissue swelling. Parenchyma: Few scattered and mildly confluent periventricular white matter hypodensities, most likely nonspecific chronic microvascular ischemic changes. No mass, hemorrhage or CT evidence of acute vascular insult. Brain volume: Generalized volume loss, with particular prominence of the parietal sulci, bilateral temporal horns and bilateral hippocampal atrophy, which can be seen in patient's with Alzheimer's disease in the correct clinical setting. Ventricles: Compensatory ex vacuo dilatation. No hydrocephalus. Arteries: No density suggestive of thrombus. Dural sinuses: No abnormal density. Extra-axial spaces: No abnormal density. Foramen magnum: No mass, Chiari malformation, or basilar invagination. Sella: No obvious mass. Paranasal/mastoid sinuses: Imaged portions unremarkable. External auditory canals: Persistent nonspecific opacification mainly on the left may be related to cerumen, correlation with physical examination is advised. Face CT findings: Bones: Grossly normal acute displaced fractures. Facial soft tissues: Mild right supraorbital soft tissue swelling and laceration. Orbits contents: Calcifications bilaterally. The lenses are not visualized, likely from prior cataract surgery. Paranasal sinuses and drainage pathways: Clear and patent. Nasal septum and nasal cavities: Midline. Anatomic variations: No significant anatomic variations. Teeth: No acute abnormality of the visualized teeth. IMPRESSION: Head CT: 1. Suboptimal study due to motion, grossly no acute posttraumatic intracranial hemorrhage. 2. Mild chronic microvascular ischemic changes. 3. Persistent disproportionate parietal and temporal atrophy likely associated with Alzheimer's disease. Face CT: 1. Suboptimal study due to motion, grossly no acute displaced fractures. 2. Right supraorbital soft tissue swelling and laceration. 3. Please see separate report of cervical spine CT performed on the same day. Signed by: Dr. Julia Fierro M.D. on 04/09/2020 6:07 PM Procedure: [id number] CT/CT CERVICAL SPINE WO Exam Date: 04/09/20 Exam Time: 1720 REPORT STATUS: Signed EXAMINATION: CT of the cervical spine HISTORY: Pain COMPARISON: None available TECHNIQUE: Multidetector helical axial images were obtained without contrast from the foramen magnum to T1. Dose modulation, iterative reconstruction, and/or weight based adjustment of the mA/kV was utilized to reduce the radiation dose to as low as reasonably achievable. Image quality: Artifact from patient motion and inadequate positioning limits the evaluation of the study. FINDINGS: Alignment: Persistent reversal of the cervical lordosis, and mild kyphosis centered at C5. Fused retrolisthesis at C5-C6 is unchanged. Persistent grade 1 anterolisthesis at C7-T1. Minimal posterior elements of C1-C2 anterior subluxation is also unchanged. Soft tissues: Normal. Vertebrae: Diffuse decrease bone marrow density, prominent subchondral sclerosis from C4 to T2. Status post decompressive laminectomy from C4 to C7. Interbody fusion from C3 to C6. Mild chronic anterior wedging and compression deformity of the T4, C5 and C6 vertebral bodies. Degenerative changes: Uncovertebral and facet arthrosis at all levels contributes to foraminal narrowing as detailed below. C1-C2: Degenerative changes, thickening of the atlantodental ligaments, mild narrowing at the level of the foramen magnum. C2-C3: Prominent uncovertebral and facet arthrosis worst on the left, ligamenta flava thickening, severe spinal canal and left foraminal stenoses. C3-C4: Surgical decompression. Interbody and posterior elements fusion. Severe foraminal stenosis. C4-C5: Surgical level, severe foraminal stenosis. C5-C6: Surgical level, severe foraminal stenosis. C6-C7: Surgical level, severe foraminal stenosis worse on the left. C7-T1: Bilateral facet arthrosis. No significant. Spinal or foraminal stenosis. IMPRESSION: 1. No acute cervical spine fractures or dislocations. 2. 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 3. Extensive postoperative changes of the cervical spine as detailed above. 4. Note is made that acute traumatic spinal cord, vascular or ligamentous injury cannot adequately be assessed with CT. Signed by: Dr. Julia Fierro M.D. on 04/09/2020 6:16 PM Dictated By: JULIA FIERRO MD 15 Transcribed By: ARTURO on 04/09/201815 COPY TO: LAURENT DAVIS MD~ Procedures Laceration Laceration: Laceration 1 Site: face Side: right Size (cm): 2 Description: stellate Depth: simple, single layer Pre-repair: wound exposed Skin layer closed with: other (dermabond) Assessment & Plan Medical Decision Making MDM pt s/p fall with head injury ct brain, ct face ordered to eval for fractures, subdural bleed, subarachnoid bleed, Assessment & Plan Final Impression: (1) Fall (2) Laceration Depart Disposition: HOME, SELF-CARE Last Vital Signs Date Time Temp Pulse Resp B/P (MAP) Pulse Ox O2 Delivery O2 Flow Rate FiO2 04/09/20 17:05 98.3 87 16 140/81 100 Room Air Home Meds Reported Medications Memantine Hcl (NAMENDA) 10 Mg Tablet, 10 MG PO DAILY, #30 TAB 10/09/19 Tamsulosin Hcl* (FLOMAX*) 0.4 Mg Cap, 0.4 MG PO DAILY, #30 CAP 10/09/19 Metoprolol Tartrate (METOPROLOL TARTRATE) 25 Mg Tablet, 25 MG PO DAILY, TAB 10/09/19 Risperidone (RISPERIDONE) 0.5 Mg Tablet, 0.25 MG PO DAILY, TAB 10/09/19 Famotidine (FAMOTIDINE) 20 Mg Tab, 20 MG PO HS, #30 TAB 10/09/19 Donepezil Hcl (ARICEPT) 5 Mg Tablet, 5 MG PO HS, #30 TAB 10/09/19 Trazodone Hcl (TRAZODONE HCL) 50 Mg Tablet, 50 MG PO HS, #30 TAB 10/09/19 Metformin Hcl (METFORMIN HCL) 500 Mg Tablet, 500 MG PO BID, #60 TAB 10/09/19 Tramadol Hcl (ULTRAM) 50 Mg Tablet, 100 MG PO BID, TAB 06/21/18 J CARLOS JIMÉNEZ MD Apr 09, 2020 18:11
--- NOTE | 2020-04-09 18:19 | Diagnostic Imaging Report ---
EXAMINATION: CT of the cervical spine HISTORY: Pain COMPARISON: None available TECHNIQUE: Multidetector helical axial images were obtained without contrast from the foramen magnum to T1. Dose modulation, iterative reconstruction, and/or weight based adjustment of the mA/kV was utilized to reduce the radiation dose to as low as reasonably achievable. Image quality: Artifact from patient motion and inadequate positioning limits the evaluation of the study. FINDINGS: Alignment: Persistent reversal of the cervical lordosis, and mild kyphosis centered at C5. Fused retrolisthesis at C5-C6 is unchanged. Persistent grade 1 anterolisthesis at C7-T1. Minimal posterior elements of C1-C2 anterior subluxation is also unchanged. Soft tissues: Normal. Vertebrae: Diffuse decrease bone marrow density, prominent subchondral sclerosis from C4 to T2. Status post decompressive laminectomy from C4 to C7. Interbody fusion from C3 to C6. Mild chronic anterior wedging and compression deformity of the T4, C5 and C6 vertebral bodies. Degenerative changes: Uncovertebral and facet arthrosis at all levels contributes to foraminal narrowing as detailed below. C1-C2: Degenerative changes, thickening of the atlantodental ligaments, mild narrowing at the level of the foramen magnum. C2-C3: Prominent uncovertebral and facet arthrosis worst on the left, ligamenta flava thickening, severe spinal canal and left foraminal stenoses. C3-C4: Surgical decompression. Interbody and posterior elements fusion. Severe foraminal stenosis. C4-C5: Surgical level, severe foraminal stenosis. C5-C6: Surgical level, severe foraminal stenosis. C6-C7: Surgical level, severe foraminal stenosis worse on the left. C7-T1: Bilateral facet arthrosis. No significant. Spinal or foraminal stenosis. IMPRESSION: 1. No acute cervical spine fractures or dislocations. 2. 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 3. Extensive postoperative changes of the cervical spine as detailed above. 4. Note is made that acute traumatic spinal cord, vascular or ligamentous injury cannot adequately be assessed with CT. Signed by: Dr. Julia Christopher M.D. on 04/09/2020 6:16 PM
--- OUTSIDE RECORDS SUMMARY | 2020-04-09 19:33 | XMS REPORT | Clinical Summary ---
Author Author [facility] Organization [facility] Address Unknown Phone Unavailable Care Team Providers Care Dental Cream Maker Name Role Phone Long Mccoy MD PCP Allergies No Known Active Allergies Medications End Date Status Medication Sig [...] 8 Active Problems No known active problems Medical History Medical History Date Comments Allergic Hypertension Dementia (HCC) Social History Date Tobacco Use Types Packs/Day Years Used Never Smoker Smokeless Tobacco: Never Used Drinks/Week oz/Week Comments Alcohol Use No Sex Assigned at Date Recorded Not on file Last Filed Vital Signs Not on file Plan of Treatment Health Maintenance Due Date Last Done Comments SHINGLES VACCINES (#1) 1980 65+ PNEUMOCOCCAL VACCINE 09/14/1995 (1 of 1 - PPSV23) INFLUENZA VACCINE 12/22/2019 Results Not on fileafter 04/09/2019 Insurance Type Payer Benefit Subscriber ID Effective Phone Address Plan / Dates Group [facility] MEDICARE AARP [id number] MEDICARE resent COMPLETE MCR Advance Directives For more information, please contact: [phone] Patient Water Chaser Explanation Type Date Recorded Advance Directives, Living Will and Medical Power of Cornetist
--- OUTSIDE RECORDS SUMMARY | 2020-04-09 19:34 | XMS REPORT | Continuity of Care Document ---
Author Author [facility] t Organization [facility] Address [address] [place] [id number] Phone Unavailable Care Team Providers Care Storage Receipt Poster Name Role Phone TAYLOR SANTOS, MD GALINDO PCP Ulises JIMÉNEZ Attphys Unavailable ROBERTO WALLER Attphys Unavailable JOSIE VAZQUEZ Attphys Unavailable AGA HOPSON Attphys Unavailable CONSTANTINO YUNG Attphys Unavailable ROBERTO WALLER Admphys Unavailable AGA HOPSON Admphys Unavailable CONSTANTINO YUNG Admphys Unavailable Payers Payer Name Policy Type Policy Number Effective Date Expiration Date Elmer jaime [facility] Medicare Complete NA 2019 00:00:00 [facility] Problems Condition Name Condition Details Condition Category Status Onset Date Resolution Date Last Treatment Date Treating Clinician Comments Source Cellulitis Cellulitis Problem Active [facility] Dementia Dementia Problem Active [facility] 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 [facility] Pneumonia Pneumonia Problem Active [facility] Cellulitis of left upper extremity Problem Active [facility] Osteomyelitis Problem Active [facility] Allergies, Adverse Reactions, Alerts Allergy Name Allergy Type Status Severity Reaction(s) Onset Date Inacti ve Date Treating Clinician Comments Source No Known Allergies DA Active U 2018-05-17 00:00:00 [facility] No Known Allergies DA Active U 2017-12-12 00:00:00 [facility] Social History Social Habit Start Date Stop Date Quantity Comments Source Sex Assigned At Adolfo lozano [facility] Tobacco use and exposure 2017-09-26 00:00:00 2017-09-26 00:00:00 Franca wu used Donald Huynh Alcohol intake 2017-09-26 00:00:00 2017-09-26 00:00:00 Current non-drinker of alcohol (finding) Donald Huynh Smoking Status Start Date Stop Date Source Never smoker Donald Kimfozia elie Medications Ordered Medication Name Filled Medication Name Start Date Stop Da te Current Medication? Ordering Clinician Indication Dosage Frequency Signature (SIG) Comments Components Source Aspirin (Aspirin Ec) 81 Mg TABLET. Aspirin (Aspirin Ec) 81 Mg TABLET. 2018-06-27 05:49:00 2019-10-09 00:00:00 No 81 Daily [facility] Atorvastatin Atorvastatin 2018-06-27 05:49:00 2019-10-09 00:00:00 No 40 Daily [facility] Clopidogrel Bisulfate (Plavix) 75 Mg TABLET Clopidogre l Bisulfate (Plavix) 75 Mg TABLET 2018-06-27 05:49:00 2019-10-09 00:00:00 No 75 Vicky ly [facility] Ciprofloxacin Hcl (Cipro) 500 Mg TABLET Ciprofloxacin Hcl (C ipro) 500 Mg TABLET 2018-06-27 05:47:00 2019-10-09 00:00:00 No 500 Every 12 Hours [facility] Docusate Sodium (Colace) 100 Mg CAPSULE Docusate Sodium (Col nena) 100 Mg CAPSULE 2018-06-27 05:47:00 2019-10-09 00:00:00 No 100 Daily [facility] Metoprolol Tartrate (Lopressor) 25 Mg TAB Metoprolol T artrate (Lopressor) 25 Mg TAB 2018-06-27 05:47:00 2019-10-09 00:00:00 No 25 Twic e A Day [facility] Minocycline Hcl Minocycline Hcl 2018-06-27 05:47:00 2019-10-09 00:00:00 No 100 Twice A Day [facility] Sennosides (Senokot) 8.6 Mg TABLET Sennosides (Senokot) 8.6 Mg TABLET 2018-06-27 05:47:00 2019-10-09 00:00:00 No 17.2 Twice A Day [facility] metFORMIN (GLUCOPHAGE) 500 mg tablet 2017-09-26 08:59:56 Ye s 500mg Q.5D Take 500 mg by mouth 2 (two) times a day with meals. Bennett [facility] lisinopril (PRINIVIL,ZESTRIL) 10 mg tablet 2017-09-26 08:59:56 Yes 10mg QD Take 10 mg by mouth daily. [place] [facility] traMADol (ULTRAM) 50 mg tablet 2017-08-23 00:00:00 Yes TK ONE T PO Q 8 H PRN P WF B[facility] Donepezil Hcl (Aricept) 5 Mg TABLET Donepezil Hcl (Aricept) 5 Mg TABL ET Yes 5 Bedtime [facility] Famotidine Famotidine Yes 20 Bedtime [facility] Memantine Hcl (Namenda) 10 Mg TABLET Memantine Hcl (Namenda) 10 Mg TABLET Yes 10 Daily [facility] Metformin Hcl Metformin Hcl Yes 500 Twice A Day [facility] Metoprolol Tartrate Metoprolol Tartrate Yes 25 Daily [facility] Risperidone Risperidone Yes .25 Daily [facility] Tamsulosin Hcl (Flomax*) 0.4 Mg CAP Tamsulosin Hcl (Flomax*) 0.4 Mg C AP Yes .4 Daily [facility] Tramadol Hcl (Ultram) 50 Mg TABLET Tramadol Hcl (Ultram) 50 Mg TABLET Yes 100 Twice A Day [facility] Trazodone Hcl Trazodone Hcl Yes 50 Bedtime [facility] Acetaminophen (Tylenol*) 325 Mg TABLET Acetaminophen (Tylenol*) 325 Mg TABLET 2019-10-09 00:00:00 No 325 Every 6 Hours [facility] Famotidine Famotidine 2019-10-09 00:00:00 No 20 Vicky ly [facility] Memantine Hcl (Namenda) 10 Mg TABLET Memantine Hcl (Namenda) 10 Mg TABLET 2019-10-09 00:00:00 No 5 Daily [facility] Risperidone Risperidone 2019-10-09 00:00:00 No .25 D aily [facility] Sodium Chloride Sodium Chloride 2019-10-09 00:00:00 No 1 Twice A Day [facility] Tamsulosin Hcl (Flomax*) 0.4 Mg CAP Tamsulosin Hcl (Flomax*) 0.4 Mg CAP 2019-10-09 00:00:00 No .4 Daily [facility] Trazodone Hcl Trazodone Hcl 2019-10-09 00:00:00 No 50 Bedtime [facility] Valsartan (Diovan) 160 Mg TAB Valsartan (Diovan) 160 Mg TAB 2019-10-09 00:00:00 No 320 Daily [facility] Vital Signs Vital Name Observation Time Observation Value Comments Source Body Temperature 2019-10-12 16:39:00 98.1 [degF] [facility] Weight 2019-10-11 05:42:00 120.31 [lb_av] [facility] BMI (Body Mass Index) 2019-10-11 05:42:00 22.7 kg/m2 [facility] Procedures Procedure Date / Time Performed Performing Clinician [facility] Computed tomography of abdomen and pelvis with contrast 00:00:00 [facility] Computed tomography of chest with contrast 2019-10-10 00:00:00 [facility] Computed tomography of brain without radiopaque contrast 2019-09 00:00:00 [facility] Computed tomography of cervical spine without contrast 2019-09-21 00:00:00 [facility] Magnetic resonance imaging of brain without contrast 2019-05-07 00:00:00 [facility] Plan of Care Planned Activity Planned Date Details Comments Source Future Scheduled Test 2019-12-22 00:00:00 INFLUENZA VACCINE [code = INFLUENZA VACCINE] Donald Huynh Future Scheduled Test 1995-09-14 00:00:00 65+ PNEUMOCOCCAL V ACCINE (1 of 1 - PPSV23) [code = 65+ PNEUMOCOCCAL VACCINE (1 of 1 - PPSV23)] Brick [facility] Future Scheduled Test 1980 00:00:00 SHINGLES VACCINES (#1) [code = SHINGLES VACCINES (#1)] [facility] Encounters Start Date/Time End Date/Time Encounter Type Admission Type [facility] Care Department Encounter ID Source 2019-10-09 15:20:00 2019-10-12 18:17:00 Discharged Inpatient 1 ROBERTO WALLER [facility] [id number] [facility] 2019-05-07 09:33:00 2019-05-07 09:33:00 Registered Clinic 3 [facility] [id number] [facility] 2018-06-30 12:46:00 2018-06-30 12:46:00 Admitted Inpatient 1 AGA [facility] [id number] [facility] 2018-06-20 12:01:00 2018-06-27 14:01:00 Discharged Inpatient 1 CONSTANTINO YUNG [facility] [id number] [facility] 2017-09-28 10:04:00 2017-09-28 10:04:00 Registered Clinic 3 [facility] [id number] [facility] Results Test Description Test Time Test Comments Results Result Comments Source CT CERVICAL SPINE WO 2020-04-09 18:08:00 [facility] : 1930 Sex: M [facility] [address] [address] Patient Name: ILIR LAWRENCE MR #: [id number] : 1930 Age/Sex: 89/M Req #: [id number] [facility] Physician: Ordered by: Laurent Brian MD Report #: [id number] Location: ER Room/Bed: Procedure: [id number] CT/CT CERVICAL SPINE WO Exam Date: 04/09/20 Exam Time: 1720 REPORT STATUS: Signed EXAMINATION: CT of the cervical spine HISTORY: Pain COMPARISON: None available TECHNIQUE: Multidetector helical axial images were obtained without contrast from the foramen magnum to T1. Dose modulation, iterative reconstruction, and/or weight based adjustment of the mA/kV was utilized to reduce the radiation dose to as low as reasonably achievable. Image quality: Artifact from patient motion and inadequate positioning limits the evaluation of the study. FINDINGS: Alignment: Persistent reversal of the cervical lordosis, and mild kyphosis centered at C5. Fused retrolisthesis at C5-C6 is unchanged. Persistent grade 1 anterolisthesis at C7-T1. Minimal posterior elements of C1-C2 anterior subluxation is also unchanged. Soft tissues: Normal. Vertebrae: Diffuse decrease bone marrow density, prominent subchondral sclerosis from C4 to T2. Status post decompressive laminectomy from C4 to C7. Interbody fusion from C3 to C6. Mild chronic anterior wedging and compression deformity of the T4, C5 and C6 vertebral bodies. Degenerative changes: Uncovertebral and facet arthrosis at all levels contributes to foraminal narrowing as detailed below. C1-C2: Degenerative changes, thickening of the atlantodental ligaments, [...] No significant. Spinal or foraminal stenosis. IMPRESSION: 1. No acute cervical spine fractures or dislocations. 2. 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 3. Extensive postoperative changes of the cervical spine as detailed above. 4. Note is made that acute traumatic spinal cord, vascular or ligamentous injury cannot adequately be assessed with CT. Signed by: Dr. Nicolas Christopher M.D. on 04/09/2020 6:16 PM Dictated By: NICOLAS CHRISTOPHER MD 15 Transcribed By: ARTURO on 04/09/201815 COPY TO: LAURENT BRIAN MD CT KASSANDRA MARRERO/ARMANI WO 2020-04-09 17:55:00 [facility] : 1930 Sex: [place] [address] [address] Patient Name: MELINDAILIR AVERY MR #: [id number] : 1930 Age/Sex: 89/M Req #: [id number] [facility] Physician: Ordered by: Laurent Brian MD Report #: [id number] Location: Room/Bed: Procedure: [id number] CT/CT MAXIO FAC/PARANAS WO Exam Date: 04/09/20 Exam Time: 1720 REPORT STATUS: Signed EXAMINATION: Head and face CT without contrast. HISTORY: 89-year-old male status post full: Head trauma, right eyebrow laceration COMPARISON: Head CT and cervical spine 10/09/2019 TECHNIQUE: Multidetector axial images were obtained without contrast from the foramen magnum to the vertex and over the face. Dose modulation, iterative reconstruction, and/or weight based adjustment of the mA/kV was utilized to reduce the radiation dose to as low as reasonably achievable. Image quality: Artifact from patient motion limits evaluation of the studies. Head CT findings: Skull: Grossly known acute displaced fractures. Minimal left forehead/supraorbital soft tissue swelling. Parenchyma: Few scattered and mildly confluent periventricular white matter hypodensities, most likely nonspecific chronic microvascular ischemic changes. No mass, hemorrhage or CT evidence of acute vascular insult. Brain volume: Generalized volume loss, with particular prominence of the parietal sulci, bilateral temporal horns and bilateral hippocampal atrophy, which can be seen in patient's with Alzheimer's disease in the correct clinical setting. Ventricles: Compensatory ex vacuo dilatation. No hydrocephalus. Arteries: No density suggestive of thrombus. Dural sinuses: No abnormal density. Extra-axial spaces: No abnormal density. Foramen magnu m: No mass, Chiari malformation, or basilar invagination. Sella: No obvious mass. Paranasal/mastoid sinuses: Imaged portions unremarkable. External auditory canals: Persistent nonspecific opacification mainly on the left may be related to cerumen, correlation with physical examination is advised. Face CT findings: Bones: Grossly normal acute displaced fractures. Facial soft tissues: Mild right supraorbital soft tissue swelling and laceration. Orbits contents: Calcifications bilaterally. The lenses are not visualized, likely from prior cataract surgery. Paranasal sinuses and drainage pathways: Clear and patent. Nasal septum and nasal cavities: Midline. Anatomic variations: No significant anatomic variations. Teeth: No acute abnormality of the visualized teeth. IMPRESSION: Head CT: 1. Suboptimal study due to motion, grossly no acute posttraumatic intracranial hemorrhage. 2. Mild chr onic microvascular ischemic changes. 3. Persistent disproportionate parietal and temporal atrophy likely associated with Alzheimer's disease. Face CT: 1. Suboptimal study due to motion, grossly no acute displaced fractures. 2. Right supraorbital soft tissue swelling and laceration. 3. Please see separate report of cervical spine CT performed on the same day. Signed by: Dr. Nicolas Christopher M.D. on 04/09/2020 6:07 PM Dictated By: NICOLAS CHRISTOPHER MD 06 Transcribed By: ARTURO on 04/09/201806 COPY TO: LAURENT BRIAN MD CT BRAIN WO 2020-04-09 17:55:00 [facility] 1930 Sex: [place] [address] [address] Patient Name: ILIR LAWRENCE MR #: [id number] : 1930 Age/Sex: 89/M Re #: [id number] [facility] Physician: Ordered by: Laurent Brian MD Report #: [id number] Location: ER Room/Bed: Procedure: [id number] CT/CT BRAIN WO Exam Date: 04/09/20 Exam Time: 1720 REPORT STATUS: Signed EXAMINATION: Head and face CT without contrast. HISTORY: 89-year-old male status post full: Head trauma, right eyebrow laceration COMPARISON: Head CT and cervical spine 10/09/2019 TECHNIQUE: Multidetector axial images were obtained without contrast from the foramen magnum to the vertex and over the face. Dose modulation, iterative reconstruction, and/or weight based adjustment of the mA/kV was utilized to reduce the radiation dose to as low as reasonably achievable. Image quality: Artifact from patient motion limits evaluation of the studies. Head CT findings: Skull: Grossly known acute displaced fractures. Minimal left forehead/supraorbital soft tissue swelling. Parenchyma: Few scattered and mildly confluent periventricular white matter hypodensities, most likely nonspecific chronic microvascular ischemic changes. No mass, hemorrhage or CT evidence of acute vascular insult. Brain volume: Generalized volume loss, with particular prominence of the parietal sulci, bilateral temporal horns and bilateral hippocampal atrophy, which can be seen in patient's with Alzheimer's disease in the correct clinical setting. Ventricles: Compensatory ex vacuo dilatation. No hydrocephalus. Arteries: No density suggestive of thrombus. Dural sinuses: No abnormal density. Extra-axial spaces: No abnormal density. Foramen magnum: No mass, Ch iari malformation, or basilar invagination. Sella: No obvious mass. Paranasal/mastoid sinuses: Imaged portions unremarkable. External auditory canals: Persistent nonspecific opacification mainly on the left may be related to cerumen, correlation with physical examination is advised. Face CT findings: Bones: Grossly normal acute displaced fractures. Facial soft tissues: Mild right supraorbital soft tissue swelling and laceration. Orbits contents: Calcifications bilaterally. The lenses are not visualized, likely from prior cataract surgery. Paranasal sinuses and drainage pathways: Clear and patent. Nasal septum and nasal cavities: Midline. Anatomic variations: No significant anatomic variations. Teeth: No acute abnormality of the visualized teeth. IMPRESSION: Head CT: 1. Suboptimal study due to motion, grossly no acute posttraumatic intracranial hemorrhage. 2. Mild chronic microvascular ischemic changes. 3. Persistent disproportionate parietal and temporal atrophy likely associated with Alzheimer's disease. Face CT: 1. Suboptimal study due to motion, grossly no acute displaced fractures. 2. Right supraorbital soft tissue swelling and laceration. 3. Please see separate report of cervical spine CT performed on the same day. Signed by: Dr. Nicolas Christopher M.D. on 04/09/2020 6:07 PM Dictated By: NICOLAS CHRISTOPHER MD 06 Transcribed By: ARTURO on 04/09/201806 COPY TO: LAURENT BRIAN MD Capillary blood glucose measurement by glucometer (mas s/volume) 2019-10-11 20:27:00 Test Item Bedside Glucose (test code = 41718-9) 220 70-120 Meter ID: [id number] [facility] SystemBlood leukocytes automated count (number/volume)2019-10-11 04:45:00* Test Item Value Reference Range Interpretation Comments White Blood Count (test code = 6690-2) 7.56 4.8-10.8 [facility] automated count (number/volume)2019-10-11 04:45:00* Test Item Value Reference Range Interpretation Comments Red Blood Count (test code = 789-8) 3.42 4.3-5.7 [facility] CenterBlood hemoglobin measurement (moles/volume)2019-10-11 04:45:00* Test Item Value Reference Range Interpretation Comments Hemoglobin (test code = 93457-6) 10.0 14.0-18.0 [facility] CenterAutomated blood hematocrit (volume fraction)2019-10-11 04:45:00* Test Item Value Reference Range Interpretation Comments Hematocrit (test code = 4544-3) 31.5 38.2-49.6 [facility] CenterAutomated erythrocyte mean corpuscular [id number] 04:45:00* Test Item Value Reference Range Interpretation Comments Mean Corpuscular Volume (test code = 787-2) 92.1 81-99 [facility] CenterAutomated erythrocyte mean corpuscular hemoglobin (mass per erythrocyte)2019-10-11 04:45:00* Test Item Value Reference Range Interpretation Comments Mean Corpuscular Hemoglobin (test code = 785-6) 29.2 28-32 [facility] CenterAutomated erythrocyte mean corpuscular hemoglobin concentration measurement (mass/volume)2019-10-11 04:45:00* Test Item Value Reference Range Interpretation Comments Mean Corpuscular Hemoglobin Concent (test code = 786-4) 31.7 31-35 [facility] CenterRDW JpzCv-Zzw2529-85-21 04:45:00* Test Item Value Reference Range Interpretation Comments Red Cell Distribution Width (test code = 41973-1) 13.3 11.7 -14.4 [facility] CenterAutomated blood platelet count (count/volume)2019-10-11 04:45:00* Test Item Value Reference Range Interpretation Comments Platelet Count (test code = 777-3) 239 140-360 [facility] CenterAutomated blood segmented neutrophil count as percentage of total iyetmihysw2030-41-09 04:45:00* Test Item Value Reference Range Interpretation Comments Neutrophils (%) (Auto) (test code = 41464-4) 60.3 38.7-80.0 [facility] CenterAutomated blood lymphocyte count as percentage ot total ixyriopcpk1772-69-64 04:45:00* Test Item Value Reference Range Interpretation Comments Lymphocytes (%) (Auto) (test code = 736-9) 26.1 18.0-39.1 [facility] CenterAutangel medical centered blood monocyte count as percentage of total mijmkwvywu4066-34-68 04:45:00* Test Item Value Reference Range Interpretation Comments Monocytes (%) (Auto) (test code = 5905-5) 6.3 4.4-11.3 [facility] CenterAutomated blood eosinophil count as percentage of total pvqkveokcz7616-44-06 04:45:00* Test Item Value Reference Range Interpretation Comments Eosinophils (%) (Auto) (test code = 713-8) 6.0 0.0-6.0 [facility] CenterAutomated blood basophil count as percentage of total bwqzbnwmlj5997-13-28 04:45:00* Test Item Value Reference Range Interpretation Comments Basophils (%) (Auto) (test code = 706-2) 0.9 0.0-1.0 [facility] CenterFluoroscopic procedure less than one hour umrkkvjg9889-59-42 04:45:00* Test Item Value Reference Range Interpretation Comments IM GRANULOCYTES % (test code = IM GRANULOCYTES %) 0.4 0.0- 1.0 [facility] CenterAutomated blood neutrophil count 2019-10-11 04:45:00* Test Item Value Reference Range Interpretation Comments Neutrophils # (Auto) (test code = 751-8) 4.6 2.1-6.9 [facility] CenterBlood lymphocytes count (number/volume) 2019-10-11 04:45:00* Test Item Value Reference Range Interpretation Comments Lymphocytes # (Auto) (test code = 69070-7) 2.0 1.0-3.2 [facility] CenterBlood monocytes automated count (number/volume)2019-10-11 04:45:00* Test Item Value Reference Range Interpretation Comments Monocytes # (Auto) (test code = 742-7) 0.5 0.2-0.8 [facility] CenterAutomated blood eosinophil count 2019-10-11 04:45:00* Test Item Value Reference Range Interpretation Comments Eosinophils # (Auto) (test code = 711-2) 0.5 0.0-0.4 [facility] CenterAutomated blood basophil count (count/volume)2019-10-11 04:45:00* Test Item Value Reference Range Interpretation Comments Basophils # (Auto) (test code = 704-7) 0.1 0.0-0.1 [facility] CenterFluoroscopic procedure less than one hour ztoxmclk3793-48-43 04:45:00* Test Item Value Reference Range Interpretation Comments Absolute Immature Granulocyte (auto (darren t code = Absolute Immature Granulocyte (auto) 0.03 0-0.1 [facility] Centererum or plasma sodium measurement (moles/volume)2019-10-11 04:45:00* Test Item Value Reference Range Interpretation Comments Sodium Level (test code = 2951-2) 135 136-145 [facility] Centererum or plasma potassium measurement (moles/volume)2019-10-11 04:45:00* Test Item Value Reference Range Interpretation Comments Potassium Level (test code = 2823-3) 4.0 3.5-5.1 [facility] Centererum or plasma chloride measurement (moles/volume)2019-10-11 04:45:00* Test Item Value Reference Range Interpretation Comments Chloride Level (test code = 2075-0) 102 98-107 [facility] Centererum or plasma carbon dioxide, total measurement (moles/volume)2019-10-11 04:45:00* Test Item Value Reference Range Interpretation Comments Carbon Dioxide Level (test code = 2028-9) 23 22-29 [facility] Centererum or plasma anion uno1706-31-50 04:45:00* Test Item Value Reference Range Interpretation Comments Anion Gap (test code = 64227-3) 14.0 8-16 [facility] Centererum or plasma urea nitrogen measurement (mass/volume)2019-10-11 04:45:00* Test Item Value Reference Range Interpretation Comments Blood Urea Nitrogen (test code = 3094-0) 17 7-26 [facility] Centererum or plasma creatinine measurement (mass/volume)2019-10-11 04:45:00* Test Item Value Reference Range Interpretation Comments Creatinine (test code = 2160-0) 0.74 0.72-1.25 [facility] Centererum or plasma urea nitrogen/creatinine mass dxrsw5047-03-86 04:45:00* Test Item Value Reference Range Interpretation Comments BUN/Creatinine Ratio (test code = 3097-3) 23 6-25 [facility] CenterEstimated glomerular filtration rate (GFR) hiqvoujgdzcps8173-30-50 04:45:00* Test Item Value Reference Range Interpretation Comments Estimat Glomerular Filtration Rate (test code = 295807747) > 60 >60 Ranges were taken from the National Kidney Disease Education Program and the [facility] Foundation literature.Reference ranges:60 or greater: Ccivmf78-31 ( for 3 consecutive months): Chronic kidney disease 15 or less: Kidney failureFort [facility] Regional Medical CenterGlucose lkywhybyurg1900-23-90 04:45:00* Test Item Value Reference Range Interpretation Comments Glucose Level (test code = YXK4783) 65 74-118 [facility] calcium measurement (mass/volume)2019-10-11 04:45:00* Test Item Value Reference Range Interpretation Comments Calcium Level (test code = 73066-8) 8.6 8.4-10.2 [facility]Fluor[facility] procedure less than one hour [id number] 04:45:00* Test Item Value Reference Range Interpretation Comments Hemoglobin A1c Percent (test code = Hemoglobin A1c Percent) 5.4 4.0-7.0 [facility] or plasma total bilirubin measurement (mass/volume)2019-10-11 04:45:00* Test Item Value Reference Range Interpretation Comments Total Bilirubin (test code = 1975-2) 0.5 0.2-1.2 [facility] CenterFluor[facility] procedure less than one hour [id number] 04:45:00* Test Item Value Reference Range Interpretation Comments Aspartate Amino Transf (AST/SGOT) (test code = Aspartate Amino Transf (AST/SGOT)) 6 5-34 [facility]ere[facility] or plasma alanine aminotransferase measurement (enzymatic activity/volume)2019-10-11 04:45:00* Test Item Value Reference Range Interpretation Comments Alanine Aminotransferase (ALT/SGPT) (test code = 1742-6) 6 0-55 [facility] protein measurement (mass/volume)2019-10-11 04:45:00* Test Item Value Reference Range Interpretation Comments Total Protein (test code = 2885-2) 6.0 6.5-8.1 [facility] or plasma albumin measurement (mass/volume)2019-10-11 04:45:00* Test Item Value Reference Range Interpretation Comments Albumin (test code = 1751-7) 2.8 3.5-5.0 [facility] CenterPlasma globulin measurement (mass/volume) 2019-10-11 04:45:00* Test Item Value Reference Range Interpretation Comments Globulin (test code = 93228-2) 3.2 2.3-3.5 [facility] or plasma albumin/globulin mass [id number] 04:45:00* Test Item Value Reference Range Interpretation Comments Albumin/Globulin Ratio (test code = 1759-0) 0.9 0.8-2.0 [facility] or plasma alkaline phosphatase measurement (enzymatic activity/volume)2019-10-11 04:45:00* Test Item Value Reference Range Interpretation Comments Alkaline Phosphatase (test code = 6768-6) 83 40-150 [facility] CenterErythrocyte sedimentation rate by Westergren [id number] 20:52:00* Test Item Value Reference Range Interpretation Comments Erythrocyte Sedimentation Rate (test code = 4537-7) 44 0- 13 [facility] or plasma C reactive protein measurement (mass/volume)2019-10-10 20:52:00* Test Item Value Reference Range Interpretation Comments C-Reactive Protein (test code = 1988-5) 5 0-10 Performed at: - [facility] [id number] Director: Cameron Pastor MD, Phone: [phone] [facility] Medical CenterCT ABDOMEN/PELVIS [id number] 18:44:00 [place] [address] Patient Name: ILIR LAWRENCE MR #: [id number] : 1930 Age/Sex: 89/M Req #: [id number] Adm Physician: ROBERTO WALLER MD Ordered by: Jericho Goldsmith [employer] F[employer]ER Report #: [id number] Location: MED/SURG2 Room/Bed: 209 Procedure: [id number] C T/CT ABDOMEN/PELVIS W Exam Date: 10/10/19 Exam Time: 1707 REPORT STATUS: Signed EXAM INATION: CT of the abdomen and pelvis with contrast. TECHNIQUE: Spiral C T images of the abdomen and pelvis were performed from the lung bases to the l javad trochanters after the intravenous administration of 100 cc of Isovue 370 and the oral administration of water. Coronal and sagittal reformatted images were obtained. COMPARISON: CT abdomen and pelvis 07/06/2018 CLINICAL HISTORY:Rule out malignancy DISCUSSION: ABDOMEN/PELVIS: LOWE R THORAX:Please see CT chest performed same date for further details HEPATO BILIARY: No focal hepatic lesions. No intra or extrahepatic biliary ductal di lation. GALLBLADDER: Stable 7-8 mm oval-shaped hyperdense focus in the depe ndent portion of the gallbladder lumen (series 2, image 44), consistent with a small stone. No wall thickening. SPLEEN: No splenomegaly. PANCREAS: No focal masses or ductal dilatation. Stable calcifications in the pancreatic parenchyma consistent with sequela of chronic pancreatitis. ADRENALS: No adrenal nodules. KIDNEYS/URETERS: No hydronephrosis, renal or ureteral calc lucien. Stable 1.5 x 1.5 cm mostly exophytic in the interpolar left kidney previo usly assessed as a hemorrhagic cyst. No solid enhancing masses. PELVIC OR LETI/BLADDER: Bladder is unremarkable, without focal lesions or wall thickenin g. PERITONEUM/RETROPERITONEUM: No free air or fluid. LYMPH NODES: No i ntra-abdominal, retroperitoneal, pelvic or inguinal lymphadenopathy. VESS ELS: The celiac trunk,superior and inferior mesenteric and bilateral renal ar teries are patent The portal, superior mesenteric and splenic veins are paten t. Moderate to marked atherosclerotic calcification of the abdominal aorta, ao rtic branches and iliac vessels. GI TRACT: There is moderate dilation of th e rectum, which measures approximately 7.7 cm in transverse diameter and conta ins prominent stool, which is essentially unchanged since the prior exam. Mini mal wall thickening. No surrounding inflammatory changes. The appendix is di lated, measuring approximately 1.4 cm in diameter and has measured internal fl uid density (coronal image 48 and series 2, image 65). No wall thickening. No surrounding periappendiceal inflammatory changes. This appearance is similar t o prior exam. Rest of the bowel shows no dilation or obstruction. BONES A ND SOFT TISSUE: Diffuse osteopenia. No aggressive lytic or suspicious focal sc lerotic lesions. Markedly degenerated discs in the lumbosacral spine, worse at L2-L3 and L4-L5. 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 Deformities in the left sixth, seventh, eighth and ninth left ribs, consistent with old fractures. Mild generalized soft t issue edema. IMPRESSION: 1. Dilated appendix which is fluid-fille d, however, no wall thickening or surrounding inflammatory changes to suggest acute appendicitis. This appearance is similar to prior exam. Diagnostic consi derations include appendiceal mucocele. 2. Moderate dilation of the rectu m with prominent stool, similar to prior exam, however, minimal wall thickenin g is noted. This may reflect mild stercoral colitis. Correlate for impaction. 3. Cholelithiasis, without CT evidence of cholecystitis. Signed by: Dr. Leighton Miramontes M.D. on 10/10/2019 7:01 PM Dictated By: LEIGHTON MIRAMONTES MD 00 Transcribed By: ARTURO on 10/10/191900 COPY TO: JERICHO GOLDSMITH [employer] FINDER CT CHEST [id number] 18:05:00 [place] [address] Patient Name: ILIR LAWRENCE MR #: [id number] : 1930 Age/Sex: 89/M Req #: [id number] Adm Physician: ROBERTO WALLER MD Ordered by: Jericho Goldsmith [employer] END FINDER Report #: [id number] Location: MED/SURG2 Room/Bed: [facility] Procedure: [id number] C T/CT CHEST W Exam Date: 10/10/19 Exam Time: 1707 REPORT STATUS: Signed EXAMINATION: CT scan of the chest with contrast. TECHNIQUE: Spiral CT images of the dwight st were performed from the lung apices to the level of the adrenal glands afte r the intravenous administration of 100 cc of Isovue 370. Coronal and sagitta l reformatted images were obtained. COMPARISON: CT abdomen and pelvis with and without contrast 07/06/2018 CLINICAL HISTORY:Rule out malignancy, histor y of chronic dementia, DISCUSSION: LINES/TUBES: None. LUNGS AND AIRWAYS: Mild right lower lobe dependent atelectasis. Linear opacity in the s uperior segment of the right lower lobe consistent with subsegmental atelectas is. No pulmonary nodules, masses or consolidation. Rounded 1.2 cm density in the dependent portion of the trachea near the ozzie (series 4, image 37), whi ch measures fluid density and likely represents inspissated mucus. Rest of t he airways is grossly clear. PLEURA: No pneumothorax or pleural effusions. HEART AND MEDIASTINUM: The thyroid gland is normal. Heart size is alberta l. No pericardial effusion. Atherosclerotic calcification of the aortic valve' s, coronary arteries and thoracic aorta. Aorta is nonaneurysmal. Main pulmonar y artery is normal in caliber. LYMPH NODES: There is no mediastinal, felix r or axillary lymphadenopathy. ABDOMEN: Please see CT of abdomen and pelvis performed same day for further detail. BONES AND SOFT TISSUES: No aggres sive lytic or suspicious focal sclerotic lesions. Multilevel degenerated discs in the thoracic and upper lumbar spine worse at T9-T12. Soft tissues are luisa sly unremarkable. IMPRESSION: 1. Mild right lower lobe dependent atelect asis. No consolidation or effusion. Signed by: Dr. Leighton Miramontes M.D. on 10/10/2019 6:14 PM Dictated By: LEIGHTON MIRAMONTES MD Electronically Alma d By: LEIGHTON MIRAMONTES MD on 10/10/191813 Transcribed By: ARTURO on 10/10/19 18 14 COPY TO: AGUSJERICHO Becca ANAYA Serum or plasma creatine kinase measurement (enzymatic activity/volume)2019-10-10 13:58:00* Test Item Value Reference Range Interpretation Comments Creatine Kinase (test code = 2157-6) 20 30-200 [facility]ere[facility] or plasma creatine kinase MB measurement (mass/volume)2019-10-10 13:58:00* Test Item Value Reference Range Interpretation Comments Creatine Kinase MB (test code = 06156-0) 1.30 0-5.0 [facility] CenterTroponin I measurement by highly sensitive enzyme [id number] 13:58:00* Test Item Value Reference Range Interpretation Comments Troponin I (test code = 75609-8) < 0.001 0-0.300 [facility] CenterFluoroscopic procedure less than one hour [id number] 16:00:00* Test Item Value Reference Range Interpretation Comments Coronavirus (PCR) (test code = Coronavirus (PCR)) NOT DETECTED NOTD ETECTED SARS-COV-2 (COVID19), HIGHRISK, RT-PCRNegative results do not preclude SARS-CoV- 2 infection and should not be used as the sole basis for patient management deci sions. Negative results must be combined with clinical observations, patient his tory, and epidemiological information. Optimum specimen types and timing for pea k viral levels during infections caused by SARS-CoV-2 have not been determined. Collection of multiple specimens ot types of specimens may be necessary to detec t virus. Improper specimen collection and handling, sequence variability under p rimers/probes, or organism present below the limit of detection may lead to fals e negative results. Positive and negative predictive values of testing are highl y dependent on prevalance. False negative test results are more likely when prev alence is high.The expected result is negative (not detected).The SARS-CoV-2 darren t is intended for the qualitative detection of nucleic acid from SARS-CoV-2 in n asopharyngeal and oropharyngeal swab samples from patients who meet COVID-19 cli nical and or epidemiological criteria. For lower respiratory tract specimens, th e assay is submitted for authoriztion by FDA under an Emergency Use Authorizatio n (EUA). Testing methodology is real time RT-PCR. If received as separate collec tion devices, nasopharygeal and oropharyngeal specimens are combined for analysi s. Additional specimens may be split to a separate accession for analysi and rep orting as this test includes a single unit of service.Test results must be corre lated with clinical presentation and evaluated in the context of other laborator y and epidemiologic data. Test performance can be affected because the epidemiol ogy and clinical spectrum of infection caused by SARS-CoV-2 is not fully known. For example, the optimum types of specimens to collect and when during the cours e of infection these specimens are most likely to contain detectable viral RNA m ay not be known.This test has not been Food and Drug Administration (FDA) cleare d or approved and has been authorized by FDA under an Emergency Use Authorizatio n (EUA). The test is only authorized for the duration of the declaration that ci rcumstances exist justifying the authorization of emergency use of in vitro diag nostic tests for detection and/or diagnosis of SARS-CoV-2 under section 564(b) o f the Act, 21 U.S.C. section 360bbb-3(b)(1), unless the authorization is termina astrid or revoked sooner. [facility] are certified under the C linical Laboratory Improvement Amendments of 1988 (CLIA), 42 U.S.C. section 263a , to perform high complexity tests.Testing performed by [facility] [id number] [place], [place] [phone] Director: Marty Quigley M.D.CLIA # [id number] [facility] [id number] 15:22:00 [place] [address] Patient Name: ILIR LAWRENCE MR #: [id number] : 1930 Age/Sex: 89/M [facility] #: [id number] Req #: [id number] Adm Physician: Ordered by: KIRSTEN YIP MD Report #: [id number] Location: ER Room/Bed: Procedure: [id number] CT /CT CERVICAL SPINE WO Exam Date: 10/09/19 Exam Time: 1330 REPORT STATUS: Signed EXAM INATION: Head and cervical spine CT without contrast. HISTORY: Status pos t fall, pain, alteration of consciousness, Alzheimer's disease COMPARISON: [facility] MRI 05/07/2019 TECHNIQUE: Multidetector axial images were obtained withou t contrast from the foramen magnum to the vertex and through the cervical spin e. The images were reconstructed using brain and bone algorithms. Thin sectio n brain images were reformatted into coronal and sagittal planes. Dose modul ation, iterative reconstruction, and/or weight based adjustment of the mA/kV w as utilized to reduce the radiation dose to as low as reasonably achievable. HEAD CT FINDINGS: Skull/scalp: No lytic or blastic lesions. No fr actures. Parenchyma: Persistent mild white matter chronic microvascular ischemic changes. No mass, hemorrhage or CT evidence of acute vascular insult. Brain volume: Generalized volume loss, with particular prominence of t he parietal sulci, bilateral temporal horns and bilateral anterior temporal an d hippocampal atrophy, which can be seen in patient's with Alzheimer's disease in the correct clinical setting. Ventricles: Mild compensatory dilata tion, no hydrocephalus. Arteries: No density suggestive of thrombus. Dural sinuses: No abnormal density. Extra-axial spaces: No abnormal density. Foramen magnum: No mass, Chiari malformation, or basilar inva gination. Sella: No obvious mass. Paranasal/mastoid sinuses: Im aged portions unremarkable. External auditory canals: Opacification main ly on the left may be related to cerumen, correlation with physical examinatio n is advised. CERVICAL SPINE CT FINDINGS: Alignment:Reversal of the c ervical lordosis, mild kyphosis centered at L5. Grade 1 anterolisthesis at C7- T1. Soft tissues: Normal. Vertebrae: Diffuse adrenal bone marrow de nsity, prominent subchondral sclerosis from C4 to T2. Status post decompressiv e laminectomy from C4 to C7. Interbody fusion from C3 to C6.. Degenera tive changes: Uncovertebral and facet arthrosis at all levels contributes to f oraminal narrowing as detailed below. C1-C2: Degenerative changes, thickeni ng of the atlantodental ligaments, mild narrowing at the level of the foramen magnum. C2-C3: Prominent uncovertebral and facet arthrosis worst on the lef t, ligamenta flava thickening, severe spinal canal and left foraminal stenoses . C3-C4: Surgical decompression. Interbody and posterior elements fusion. Severe foraminal stenosis. C4-C5: Surgical level, severe foraminal stenosi s. C5-C6: Surgical level, severe foraminal stenosis. C6-C7: Surgical l evel, severe foraminal stenosis worse on the left. C7-T1: Bilateral facet a rthrosis. No significant. Spinal or foraminal stenosis. IMPRESSION: Head CT: 1. No acute postraumatic intracranial hemorrhage. 2. Mild chronic microvascular ischemic changes. 3. Disproportionate head parietal and tempor al atrophy, likely associated to Alzheimer's disease. Cervical spine CT: 1. No acute fractures or dislocations. 2. 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 3. Extensive postoperative changes of the cervical spine as detailed above Note: Acute post traumatic spinal cord , vascular or ligamentous injury cannot adequately be assessed with CT. S igned by: Dr. Nicolas Christopher M.D. on 10/09/2019 3:31 PM Dictated By: NICOLAS GALLEGOS MD 1531 Transcribed By: ARTURO on 10/09/19 1531 COPY TO: KIRSTEN YIP MD CT BRAIN [id number] 15:22:00 [place] [address] Patient Name: ILIR LAWRENCE MR #: [id number] : 1930 Age/Sex: 89/M Req #: [id number] [facility] Physician: Ordered by: KIRSTEN YIP MD Report #: [id number] Location: Room/Bed: Procedure: [id number] CT /CT BRAIN WO Exam Date: 10/09/19 Exam Time: 1330 REPORT STATUS: Signed EXAMINATION: Head and cervical spine CT without contrast. HISTORY: Status post fall, p ain, alteration of consciousness, Alzheimer's disease COMPARISON: Brain MRI 05/07/2019 TECHNIQUE: Multidetector axial images were obtained without contras t from the foramen magnum to the vertex and through the cervical spine. The im ages were reconstructed using brain and bone algorithms. Thin section brain i mages were reformatted into coronal and sagittal planes. Dose modulation, it erative reconstruction, and/or weight based adjustment of the mA/kV was utiliz ed to reduce the radiation dose to as low as reasonably achievable. HE AD CT FINDINGS: Skull/scalp: No lytic or blastic lesions. No fractures. Parenchyma: Persistent mild white matter chronic microvascular ischemic changes. No mass, hemorrhage or CT evidence of acute vascular insult. Brain volume: Generalized volume loss, with particular prominence of the edilson etal sulci, bilateral temporal horns and bilateral anterior temporal and hippo campal atrophy, which can be seen in patient's with Alzheimer's disease in the correct clinical setting. Ventricles: Mild compensatory dilatation, no hydrocephalus. Arteries: No density suggestive of thrombus. Dur al sinuses: No abnormal density. Extra-axial spaces: No abnormal density . Foramen magnum: No mass, Chiari malformation, or basilar invagination. Sella: No obvious mass. Paranasal/mastoid sinuses: Imaged port ions unremarkable. External auditory canals: Opacification mainly on the left may be related to cerumen, correlation with physical examination is advi sed. CERVICAL SPINE CT FINDINGS: Alignment:Reversal of the cervical l ordosis, mild kyphosis centered at L5. Grade 1 anterolisthesis at C7-T1. Soft tissues: Normal. Vertebrae: Diffuse adrenal bone marrow density, pr ominent subchondral sclerosis from C4 to T2. Status post decompressive laminec juliette from C4 to C7. Interbody fusion from C3 to C6.. Degenerative mckeon ges: Uncovertebral and facet arthrosis at all levels contributes to foraminal narrowing as detailed below. C1-C2: Degenerative changes, thickening of the atlantodental ligaments, mild narrowing at the level of the foramen magnum. C2-C3: Prominent uncovertebral and facet arthrosis worst on the left, liga menta flava thickening, severe spinal canal and left foraminal stenoses. C3 -C4: Surgical decompression. Interbody and posterior elements fusion. Severe f oraminal stenosis. C4-C5: Surgical level, severe foraminal stenosis. C 5-C6: Surgical level, severe foraminal stenosis. C6-C7: Surgical level, sev ere foraminal stenosis worse on the left. C7-T1: Bilateral facet arthrosis. No significant. Spinal or foraminal stenosis. IMPRESSION: Head CT: 1. No acute postraumatic intracranial hemorrhage. 2. Mild chronic microvas cular ischemic changes. 3. Disproportionate head parietal and temporal atroph y, likely associated to Alzheimer's disease. Cervical spine CT: 1. No acute fractures or dislocations. 2. 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 3. Extensive postoperative changes of the cervi rakel spine as detailed above Note: Acute post traumatic spinal cord, vascula r or ligamentous injury cannot adequately be assessed with CT. Signed by: Dr. Nicolas Christopher M.D. on 10/09/2019 3:31 PM Dictated By: NICOLAS CHRISTOPHER MD 153 Transcribed By: ALTAGRACIA WHITNEY on 10/09/19 153 COPY TO: KIRSTEN YIP MD Prothrombin time (PT) in platelet poor plasma by coagulation [id number] 14:40:00* Test Item Value Reference Range Interpretation Comments Prothrombin Time (test code = 5902-2) 12.1 11.9-14.5 [facility] Center[facility] Platelet poor plasma by Coagulation [id number] 14:40:00* Test Item Value Reference Range Interpretation Comments Prothromb Time International Ratio (test code = 6301-6) 0.85 Oral Anticoagulant Therapy INR Values:1. Low Intensity Therapy 1.5 - 2.02 . Moderate Intensity Therapy 2.0 - 3.03. High Intensity Therapy(1) 2.5 - 3. 54. High Intensity Therapy(2) 3.0 - 4.05. Panic Value INR > 5.0 [facility] CenterActivated partial thromboplastin time (aPTT) in platelet poor plasma by coagulation [id number] 14:40:00* Test Item Value Reference Range Interpretation Comments Activated Partial Thromboplast Time (test code = 46480-2) 27.5 23.8-35.5 [facility] or plasma magnesium measurement (mass/volume)2019-10-09 14:40:00* Test Item Value Reference Range Interpretation Comments Magnesium Level (test code = 57418-7) 1.3 1.3-2.1 [facility] CenterBlood [id number] 14:40:00* Test Item Value Reference Range Interpretation Comments Blood Culture (test code = 53580387) NO GROWTH AFTER 72 HOURS [facility] CenterWRIST COMPLETE [id number] 14:16:00 [facility] [address] [place] [address] Patient Name: ILIR LAWRENCE MR #: [id number] : Age/Sex: 89/M Req #: [id number] Adm Physician: ROBERTO WALLER MD Ordered by: KIRSTEN YIP MD Report #: [id number] Location: MED/SURG2 Room/Bed: [facility] Procedure: DX /WRIST COMPLETE LEFT Exam Date: 10/09/19 Exam Time: 1330 REPORT STATUS: Signed TECHN IQUE: 3 views of the left wrist, 2 views of the left forearm, 3 views of the l eft elbow HISTORY: SWELLING, ? FALL. COMPARISON: None. IMPRES PAOLO: Severe erosive changes throughout the carpals and distal radius. Near co mplete collapse of the scaphoid. Distal radius erosion and collapse laterally. Bony lucency at the distal radius. These findings are consistent with severe degenerative changes with possible superimposed infection in the appropriate clinical scenario. Consider MRI as osteomyelitis is suspected. No definite ac navajo displaced fracture although evaluation is severely limited given the degre e of erosion and degenerative change. Minimal degenerative change of the el bow. Signed by: Ziyad Bear MD on 10/09/2019 2:21 PM Dictated By: Jeffrey BEAR DO 1421 Transcribed By: ARTURO on 10/09/19 1421 COPY TO: KIRSTEN YIP MD FOREARM LEFT 2 [id number] 14:16:00 [place] [address] Patient Name: ILIR LAWRENCE MR #: [id number] : 1930 Age/Sex: 89/M Req #: [id number] Adm Physician: ROBERTO WALLER MD Ordered by: KIRSTEN YIP MD Report #: [id number] Location: MED/SURG2 Room/Bed: [facility] Procedure: DX /FOREARM LEFT 2 VIEW Exam Date: 10/09/19 Exam Time: 1330 REPORT STATUS: Signed TECHN IQUE: 3 views of the left wrist, 2 views of the left forearm, 3 views of the l eft elbow HISTORY: SWELLING, ? FALL. COMPARISON: None. IMPRES PAOLO: Severe erosive changes throughout the carpals and distal radius. Near co mplete collapse of the scaphoid. Distal radius erosion and collapse laterally. Bony lucency at the distal radius. These findings are consistent with severe degenerative changes with possible superimposed infection in the appropriate clinical scenario. Consider MRI as osteomyelitis is suspected. No definite ac navajo displaced fracture although evaluation is severely limited given the degre e of erosion and degenerative change. Minimal degenerative change of the el bow. Signed by: Ziyad Bear MD on 10/09/2019 2:21 PM Dictated By: Jeffrey BEAR DO 20 Transcribed By: ARTURO on 10/09/19 142 COPY TO: KIRSTEN YIP MD ELBOW LEFT [id number] 14:16:00 [place] [address] Patient Name: ILIR LAWRENCE MR #: [id number] : 1930 Age/Sex: 89/M Req #: [id number] Adm Physician: ROBERTO WALLER MD Ordered by: KIRSTEN YIP MD Report #: [id number] Location: MED/SURG2 Room/Bed: [facility] [place] Procedure: DX /ELBOW LEFT COMPLETE Exam Date: 10/09/19 Exam Time: 1330 REPORT STATUS: Signed TECHN IQUE: 3 views of the left wrist, 2 views of the left forearm, 3 views of the l eft elbow HISTORY: SWELLING, ? FALL. COMPARISON: None. IMPRES PAOLO: Severe erosive changes throughout the carpals and distal radius. Near co mplete collapse of the scaphoid. Distal radius erosion and collapse laterally. Bony lucency at the distal radius. These findings are consistent with severe degenerative changes with possible superimposed infection in the appropriate clinical scenario. Consider MRI as osteomyelitis is suspected. No definite ac navajo displaced fracture although evaluation is severely limited given the degre e of erosion and degenerative change. Minimal degenerative change of the el bow. Signed by: Ziyad Bear MD on 10/09/2019 2:21 PM Dictated By: Jeffrey BEAR DO 20 Transcribed By: ARTURO on 10/09/191420 COPY TO: KIRSTEN YIP MD MRI BRAIN [id number] 12:51:00 [place] [address] Patient Name: ILIR LAWRENCE MR #: [id number] : 1930 Age/Sex: 88/M Req #: [id number] Adm Physician: Ordered by: JOSIE VAZQUEZ MD Report #: [id number] Location: MRI Room/Bed: Procedure: [id number] MRI/MRI BRAIN WO Exam Date: Exam Time: REPORT STATUS: Signed MRI BRAIN WO HIS TORY: Memory loss, Alzheimer's disease COMPARISON: MRI of the brain 09/29/19 TECHNIQUE: Axial T2, multiplanar 3-D T1, axial T2/FLAIR, axial gradie nt echo (or susceptibility weighted), and axial diffusion weighted MR images o f the brain were obtained without contrast. Motion artifacts obscure some deta ils. DISCUSSION: Scalp/bone marrow: Unremarkable. Brain sulci: Promi nent, especially along the mesial temporal lobes. Ventricles: Compensatory di latation. Extra-axial spaces: No masses or fluid collections. Parenchyma: Scattered T2/FLAIR hyperintense foci throughout the supratentorial white altaf er are likely chronic microvascular ischemic changes. Otherwise, no mass, he morrhage, or acute vascular insults. Vessels: Normal flow voids in major ar teries and veins. Sellar/Suprasellar region: No abnormalities. Craniocervic al junction: Suspected degenerative canal stenosis at C2-C3 Incidental finding s: Bilateral ocular lens replacement. IMPRESSION: 1. No acute intrac ranial abnormalities. No significant change compared to MRI of the brain dated 09/28/2017. 2. Mild supratentorial chronic microvascular ischemic change. 3. Generalized cerebral volume loss with slight predominance along the bilateral mesial temporal lobes. Signed by: Dr. Blake Rajan M.D. on 05/07/2019 12:54 PM Dictated By: BLAKE RAJAN MD 1254 Transcribed By: ARTURO on 05/07/19 1254 COPY TO: JOSIE VAZQUEZ MD [id number] 13:00:00* Test Item Value Reference Range Interpretation Comments GLUBED (test code = GLUBED) 115 mg/dL 74-106 H Performed by certified scarf and anneal operator at [facility] [id number] 10:46:00* Test Item Value Reference Range Interpretation Comments GLUBED (test code = GLUBED) 239 mg/dL 74-106 H Performed by certified scarf and anneal operator at [facility] [id number] 10:45:00* Test Item Value Reference Range Interpretation Comments GLUBED (test code = GLUBED) 165 mg/dL 74-106 H Performed by certified scarf and anneal operator at [facility] [id number] 21:40:00* Test Item Value Reference Range Interpretation Comments GLUBED (test code = GLUBED) 262 mg/dL 74-106 H Performed by certified scarf and anneal operator [facility]~ [id number] 18:24:00* Test Item Value Reference Range Interpretation Comments GLUBED (test code = GLUBED) 308 mg/dL 74-106 H Performed [facility] certified scarf and anneal [facility]~ CBC W/AUTO [id number] 15:43:00* Test Item Value Reference Range Interpretation [...] = MDIFF) NO, ONLY SCAN NEEDED DIFFERENTIAL [id number] 15:43:00* Test Item Value Reference Range Interpretation Comments STAIN ACCEPTABILITY (test code = STN ACCEPTABLE) STAIN ACCEPTABLE HYPOCHROMIA (test code = HYPO) 1+ POIKILOCYTOSIS (test code = POIK) 1+ ELLIPTOCYTES (test code = ELL) 1+ CRENATED CELLS (test code = CREN) 1+ PLATELET ESTIMATE (test code = PLTEST) ADEQUATE PLATELET MORPHOLOGY (test code = PLTMORPH) NORMAL [id number] 13:48:00* Test Item Value Reference Range Interpretation Comments GLUBED (test code = GLUBED) 305 mg/dL 74-106 H Performed by certified scarf and anneal operator at [facility] BASIC METABOLIC [id number] 11:53:00* Test Item Value Reference Range Interpretation [...] CA) 9.2 mg/dL 8.5-10.1 N CBC W/AUTO [id number] 11:26:00* Test Item Value Reference Range Interpretation [...] = MDIFF) NO, ONLY SCAN NEEDED DIFFERENTIAL [id number] 11:26:00* Test Item Value Reference Range Interpretation Comments STAIN ACCEPTABILITY (test code = STN ACCEPTABLE) CABOT RINGS (test code = CAB) MORPHOLOGY COMMENT (test code = MOC) PLATELET ESTIMATE (test code = PLTEST) PLATELET MORPHOLOGY (test code = PLTMORPH) CBC W/AUTO [id number] 11:26:00* Test Item Value Reference Range Interpretation [...] = MDIFF) NO, ONLY SCAN NEEDED DIFFERENTIAL [id number] 11:26:00* Test Item Value Reference Range Interpretation Comments STAIN ACCEPTABILITY (test code = STN ACCEPTABLE) CABOT RINGS (test code = CAB) MORPHOLOGY COMMENT (test code = MOC) PLATELET ESTIMATE (test code = PLTEST) PLATELET MORPHOLOGY (test code = PLTMORPH) CBC W/AUTO [id number] 11:26:00* Test Item Value Reference Range Interpretation [...] = MDIFF) NO, ONLY SCAN NEEDED DIFFERENTIAL [id number] 11:26:00* Test Item Value Reference Range Interpretation Comments STAIN ACCEPTABILITY (test code = STN ACCEPTABLE) MORPHOLOGY COMMENT (test code = MOC) PLATELET ESTIMATE (test code = PLTEST) PLATELET MORPHOLOGY (test code = PLTMORPH) CBC W/AUTO [id number] 11:26:00* Test Item Value Reference Range Interpretation [...] = MDIFF) NO, ONLY SCAN NEEDED DIFFERENTIAL [id number] 11:26:00* Test Item Value Reference Range Interpretation Comments STAIN ACCEPTABILITY (test code = STN ACCEPTABLE) CABOT RINGS (test code = CAB) MORPHOLOGY COMMENT (test code = MOC) PLATELET ESTIMATE (test code = PLTEST) PLATELET MORPHOLOGY (test code = PLTMORPH) [id number] 09:09:00* Test Item Value Reference Range Interpretation Comments GLUBED (test code = GLUBED) 220 mg/dL 74-106 H Performed by certified scarf and anneal operator at [facility] [id number] 23:45:00* Test Item Value Reference Range Interpretation Comments GLUBED (test code = GLUBED) 169 mg/dL 74-106 H Performed by certified scarf and anneal operator at [facility] [id number] 17:12:00* Test Item Value Reference Range Interpretation Comments GLUBED (test code = GLUBED) 83 mg/dL 74-106 N Performed by certified scarf and anneal operator at [facility] [id number] 15:08:00* Test Item Value Reference Range Interpretation Comments GLUBED (test code = GLUBED) 123 mg/dL 74-106 H Performed by certified scarf and anneal operator at [facility] [id number] 09:14:00* Test Item Value Reference Range Interpretation Comments GLUBED (test code = GLUBED) 75 mg/dL 74-106 N Performed by certified scarf and anneal operator at [facility] [id number] 20:44:00* Test Item Value Reference Range Interpretation Comments GLUBED (test code = GLUBED) 184 mg/dL 74-106 H Performed by certified scarf and anneal operator at [facility] [id number] 18:00:00* Test Item Value Reference Range Interpretation Comments TROPONIN-I (test code = TROPI) <0.015 ng/mL 0-0.045 N COMMENTS TO DIRECTOR OF MOBILE MARKETING: COLLECT 3 HOURS AFTER PREVIOUS [id number] 13:55:00* Test Item Value Reference Range Interpretation Comments GLUBED (test code = GLUBED) 148 mg/dL 74-106 H Performed by certified scarf and anneal operator at [facility] [id number]-[id number] 13:36:00* Test Item Value Reference Range Interpretation Comments TROPONIN-I (test code = TROPI) <0.015 ng/mL 0-0.045 N COMMENTS TO DIRECTOR OF MOBILE MARKETING: COLLECT 3 HOURS AFTER PREVIOUS [id number] 13:15:00* Test Item Value Reference Range Interpretation [...] RELATED TO RISK LEVELS ASRECOMMENDED BY THE SHAUN. HEART, LUNG, AND BLOOD INST. HDL CHOLESTEROL (test code = HDL) 52 mg/dL 40-60 N LIPOPROTEIN LDL (test code = LDL) 62 mg/dL 100-129 L Reference Interval: mg/dL mmol/L Optimal <100 <2.6Near/above optimal 100-129 2.6- 3.3Borderline High 130-159 3.4-4.1High 160-189 4.1-4.9Very High >=190 >=4.9========= This LDL result is a direct measurement.========= B-TYPE NATRIURETIC TYLTZBA2430-07-05 10:04:00* Test Item Value Reference Range Interpretation Comments B-TYPE NATRIURETIC PEPTIDE (test code = BNP) 27.05 pgram/mL 0-100 N BASIC METABOLIC [id number] 09:00:00* Test Item Value Reference Range Interpretation [...] code = CA) 9.5 mg/dL 8.5-10.1 N [id number]-[id number] 09:00:00* Test Item Value Reference Range Interpretation Comments TROPONIN-I (test code = TROPI) <0.015 ng/mL 0-0.045 N CBC W/O [id number] 08:46:00* Test Item Value Reference Range Interpretation [...] fL 6.7-11.0 H - XR CHEST 1 [id number] 08:12:00 FAX: August Mercado MD [phone] [place]: [address] St: REG Name: ILIR VO [facility] : 09/13/18 [birth year] Age/S: 87/M [address] [facility] Unit #: [id number] Loc: [place] [address] Phys: August Mercado MD Acct: [id number] Dis Date: Status: REG ER PHONE #: [phone] Exam Date: 09/02/2018 0750 FAX #: [phone] Reason: Shortness of Breath EXAMS: CPT CODE: [id number] XR CHEST 1 V 29442 REASON FOR EXAM: Shortness of Breath EXAM ORDER DATE: 09/02/2018 7:03 AM Ordering M.DJoe: August Mercado MD PROCEDURE: - XR CHEST [...] 09/02/2018 (16) PAGE 1 Signed Report Bedside Ajvwoon5863-76-22 15:53:00* Test Item Value Reference Range Interpretation Comments Bedside Glucose (test code = 70012-2) 260 70-120 H Meter ID: [id number] WestVancomycin Level Ucomfu1573-91-83 13:20:00* Test Item Value Reference Range Interpretation Comments Vancomycin Level Trough (test code = 4092-3) 10.7 5.0-10.0 HH Results repeated and called to TORRI DEMPSEY at 1319 on 07/10/18 by MATTHEW Mckeon Read back and verified.[facility] 2018-07-10 06:24:00* Test Item Value Reference Range Interpretation Comments Sodium Level (test code = 2951-2) 139 136-145 [facility] CenterPotassium Llcrc2657-04-65 06:24:00* Test Item Value Reference Range Interpretation Comments Potassium Level (test code = 2823-3) 3.2 3.5-5.1 L [facility] CenterChloride Iqnbn7601-63-45 06:24:00* Test Item Value Reference Range Interpretation Comments Chloride Level (test code = 2075-0) 105 98-107 [facility] CenterCarbon Dioxide Quibz6300-57-77 06:24:00* Test Item Value Reference Range Interpretation Comments Carbon Dioxide Level (test code = 2028-9) 22 22-29 [facility] CenterAnion Lrm3104-86-37 06:24:00* Test Item Value Reference Range Interpretation Comments Anion Gap (test code = 32651-8) 15.2 8-16 [facility] CenterBlood Urea Jwepzuuo0593-43-78 06:24:00* Test Item Value Reference Range Interpretation Comments Blood Urea Nitrogen (test code = 3094-0) 15 7-26 [facility] CenterCreatinine2019-02-18 06:24:00* Test Item Value Reference Range Interpretation Comments Creatinine (test code = 2160-0) 0.79 0.72-1.25 [facility] CenterBUN/Creatinine Iscfm9689-39-69 06:24:00* Test Item Value Reference Range Interpretation Comments BUN/Creatinine Ratio (test code = 3097-3) 19 6-25 [facility] CenterEstimat Glomerular Filtration Rate 2018-07-10 06:24:00* Test Item Value Reference Range Interpretation Comments Estimat Glomerular Filtration Rate (test code = 504723101) > 60 >60 Ranges were taken from the National Kidney Disease Education Program and the [facility] literature.Reference ranges:60 or greater: Brlzpi75-82 ( for 3 consecutive months): Chronic kidney disease 15 or less: Kidney failureFort [facility] Regional Medical CenterGlucose Qazde7853-90-69 06:24:00* Test Item Value Reference Range Interpretation Comments Glucose Level (test code = SFR9282) 81 74-118 [facility] CenterCalcium Isqfx3008-07-38 06:24:00* Test Item Value Reference Range Interpretation Comments Calcium Level (test code = 75604-5) 8.8 8.4-10.2 [facility] CenterWhite Blood Pleou1416-40-89 06:02:00* Test Item Value Reference Range Interpretation Comments White Blood Count (test code = 6690-2) 7.33 4.8-10.8 [facility] CenterRed Blood Dngyq2410-30-55 06:02:00* Test Item Value Reference Range Interpretation Comments Red Blood Count (test code = 789-8) 3.23 4.3-5.7 L [facility] CenterHemoglobin2019-02-18 06:02:00* Test Item Value Reference Range Interpretation Comments Hemoglobin (test code = 21982-2) 9.2 14.0-18.0 L [facility] CenterHematocrit2019-02-18 06:02:00* Test Item Value Reference Range Interpretation Comments Hematocrit (test code = 4544-3) 28.9 38.2-49.6 L [facility] CenterMean Corpuscular Eztlie7640-77-41 06:02:00* Test Item Value Reference Range Interpretation Comments Mean Corpuscular Volume (test code = 787-2) 89.5 81-99 [facility] CenterMean Corpuscular Llyaguqiji5645-09-21 06:02:00* Test Item Value Reference Range Interpretation Comments Mean Corpuscular Hemoglobin (test code = 785-6) 28.5 28-32 [facility] CenterMean Corpuscular Hemoglobin Concent 2018-07-10 06:02:00* Test Item Value Reference Range Interpretation Comments Mean Corpuscular Hemoglobin Concent (test code = 786-4) 31.8 31-35 [facility] CenterRed Cell Distribution Pchaf1990-42-78 06:02:00* Test Item Value Reference Range Interpretation Comments Red Cell Distribution Width (test code = 24853-3) 13.8 11.7 -14.4 [facility] CenterPlatelet Fhxvc6244-28-69 06:02:00* Test Item Value Reference Range Interpretation Comments Platelet Count (test code = 777-3) 354 140-360 [facility] CenterNeutrophils (%) (Auto)2018-07-10 06:02:00 * Test Item Value Reference Range Interpretation Comments Neutrophils (%) (Auto) (test code = 33116-0) 62.3 38.7-80.0 [facility] CenterLymphocytes (%) (Auto)2018-07-10 06:02:00 * Test Item Value Reference Range Interpretation Comments Lymphocytes (%) (Auto) (test code = 736-9) 22.1 18.0-39.1 [facility] CenterMonocytes (%) (Auto)2018-07-10 06:02:00* Test Item Value Reference Range Interpretation Comments Monocytes (%) (Auto) (test code = 5905-5) 10.4 4.4-11.3 [facility] CenterEosinophils (%) (Auto)2018-07-10 06:02:00 * Test Item Value Reference Range Interpretation Comments Eosinophils (%) (Auto) (test code = 713-8) 4.2 0.0-6.0 [facility] CenterBasophils (%) (Auto)2018-07-10 06:02:00* Test Item Value Reference Range Interpretation Comments Basophils (%) (Auto) (test code = 706-2) 0.7 0.0-1.0 [facility] CenterIM GRANULOCYTES %2018-07-10 06:02:00* Test Item Value Reference Range Interpretation Comments IM GRANULOCYTES % (test code = IM GRANULOCYTES %) 0.3 0.0- 1.0 [facility] CenterNeutrophils # (Auto)2018-07-10 06:02:00* Test Item Value Reference Range Interpretation Comments Neutrophils # (Auto) (test code = 751-8) 4.6 2.1-6.9 [facility] CenterLymphocytes # (Auto)2018-07-10 06:02:00* Test Item Value Reference Range Interpretation Comments Lymphocytes # (Auto) (test code = 07575-3) 1.6 1.0-3.2 [facility] CenterMonocytes # (Auto)2018-07-10 06:02:00* Test Item Value Reference Range Interpretation Comments Monocytes # (Auto) (test code = 742-7) 0.8 0.2-0.8 [facility] CenterEosinophils # (Auto)2018-07-10 06:02:00* Test Item Value Reference Range Interpretation Comments Eosinophils # (Auto) (test code = 711-2) 0.3 0.0-0.4 [facility] CenterBasophils # (Auto)2018-07-10 06:02:00* Test Item Value Reference Range Interpretation Comments Basophils # (Auto) (test code = 704-7) 0.1 0.0-0.1 [facility] CenterAbsolute Immature Granulocyte (auto 2018-07-10 06:02:00* Test Item Value Reference Range Interpretation Comments Absolute Immature Granulocyte (auto (darren t code = Absolute Immature Granulocyte (auto) 0.02 0-0.1 [facility] FVZ4199-98-78 13:52:00 [facility] [address] [place] [address] Patient Name: ILIR LAWRENCE MR #: [id number] : 1930 Age/Sex: 87/M Req #: [id number] Adm Physician: AGA HOPSON MD Ordered by: ALESSANDRO RAMIREZ MD Report #: [id number] Location: MED/SURG3 Room/Bed: [facility] Procedure: [id number] CT/C T ABDOMEN/PELVIS WOW Exam Date: Exam [...] 07/06/181405 COPY TO: ALESSANDRO RAMIREZ MD Wound Xwulrok0966-15-85 06:26:00* Test Item Value Reference Range Interpretation Comments Wound Culture (test code = 6462-6) Organism: STAPHYLOCOCCUS AUREUS- MRSA [facility] CenterBlood Dnnvtcg2177-28-16 08:52:00* Test Item Value Reference Range Interpretation Comments Blood Culture (test code = 62330640) NO GROWTH AFTER 5 DAYS, FINAL REPORT [facility] Dfpolwmnr2759-68-39 07:08:00* Test Item Value Reference Range Interpretation Comments Total Bilirubin (test code = 1975-2) 0.7 0.2-1.2 [facility] CenterAspartate Amino Transf (AST/SGOT) 2018-07-01 07:08:00* Test Item Value Reference Range Interpretation Comments Aspartate Amino Transf (AST/SGOT) (test code = Aspartate Amino Transf (AST/SGOT)) 7 5-34 [facility] CenterAlanine Aminotransferase (ALT/SGPT) 2018-07-01 07:08:00* Test Item Value Reference Range Interpretation Comments Alanine Aminotransferase (ALT/SGPT) (test code = 1742-6) 9 0-55 [facility] CenterTotal Lgeykru1403-06-27 07:08:00* Test Item Value Reference Range Interpretation Comments Total Protein (test code = 2885-2) 6.5 6.5-8.1 [facility] CenterAlbumin2019-02-09 07:08:00* Test Item Value Reference Range Interpretation Comments Albumin (test code = 1751-7) 2.6 3.5-5.0 L [facility] CenterGlobulin2019-02-09 07:08:00* Test Item Value Reference Range Interpretation Comments Globulin (test code = 54041-5) 3.9 2.3-3.5 H [facility] CenterAlbumin/Globulin Hmbxy1957-08-51 07:08:00 * Test Item Value Reference Range Interpretation Comments Albumin/Globulin Ratio (test code = 1759-0) 0.7 0.8-2.0 L [facility] CenterAlkaline Ekxpzpvzlif6293-44-43 07:08:00* Test Item Value Reference Range Interpretation Comments Alkaline Phosphatase (test code = 6768-6) 101 40-150 [facility] CenterCreatine Kinase GF1733-53-26 06:48:00* Test Item Value Reference Range Interpretation Comments Creatine Kinase MB (test code = 49952-1) 1.30 0-5.0 [facility] CenterTroponin W1898-05-11 06:48:00* Test Item Value Reference Range Interpretation Comments Troponin I (test code = OUY4169) 0.006 0-0.300 [facility] CenterCreatine Dehweh3812-45-22 06:37:00* Test Item Value Reference Range Interpretation Comments Creatine Kinase (test code = 2157-6) 44 30-200 [facility] CenterUrine ZTL2049-68-24 10:09:00* Test Item Value Reference Range Interpretation Comments Urine WBC (test code = 5821-4) NONE 0-5 [facility] CenterUrine PCM0301-50-40 10:09:00* Test Item Value Reference Range Interpretation Comments Urine RBC (test code = 28018-4) NONE 0-5 [facility] CenterUrine Cxkoanfh4912-42-20 10:09:00* Test Item Value Reference Range Interpretation Comments Urine Bacteria (test code = 95240-3) RARE NONE [facility] CenterUrine Epithelial Phics1765-85-27 10:09:00 * Test Item Value Reference Range Interpretation Comments Urine Epithelial Cells (test code = 72858-5) RARE NONE [facility] CenterUrine Hyaline Ensjs0426-54-42 10:09:00* Test Item Value Reference Range Interpretation Comments Urine Hyaline Casts (test code = 01347-3) 2-5 0-1 H [facility] CenterUrine Rlgif3378-51-26 10:09:00* Test Item Value Reference Range Interpretation Comments Urine Mucus (test code = 8247-9) RARE RARE [facility] CenterUrine Jprnu1104-20-17 09:51:00* Test Item Value Reference Range Interpretation Comments Urine Color (test code = 5778-6) YELLOW YELLOW [facility] CenterUrine Kgnhjkw5989-24-13 09:51:00* Test Item Value Reference Range Interpretation Comments Urine Clarity (test code = 39262-6) HAZY CLEAR [facility] CenterUrine Specific Wemcoyf9783-44-03 09:51:00 * Test Item Value Reference Range Interpretation Comments Urine Specific [place] (test code = 5811-5) 1.030 1.010-1.02 5 H [facility] CenterUrine pE0805-79-47 09:51:00* Test Item Value Reference Range Interpretation Comments Urine pH (test code = 60629-0) 6 5-7 [facility] Leukocyte Qehojkdn7693-94-95 09:51:00* Test Item Value Reference Range Interpretation Comments Urine Leukocyte Esterase (test code = 5799-2) NEGATIVE NEGATIVE [facility] Xsizdrv2183-28-71 09:51:00* Test Item Value Reference Range Interpretation Comments Urine Nitrite (test code = 68820-8) NEGATIVE NEGATIVE [facility] Tsogovx3980-36-70 09:51:00* Test Item Value Reference Range Interpretation Comments Urine Protein (test code = 5804-0) NEGATIVE NEGATIVE [facility] CenterUrine Glucose (UA)2018-06-30 09:51:00* Test Item Value Reference Range Interpretation Comments Urine Glucose (UA) (test code = 2349-9) 3+ NEGATIVE H [facility] CenterUrine Tofvgvl6420-46-59 09:51:00* Test Item Value Reference Range Interpretation Comments Urine Ketones (test code = 63622-8) NEGATIVE NEGATIVE [facility] CenterUrine Cbbopubtpnha2878-62-17 09:51:00* Test Item Value Reference Range Interpretation Comments Urine Urobilinogen (test code = 27011-6) 0.2 0.2-1 [facility] CenterUrine Xavlaczvv5149-22-74 09:51:00* Test Item Value Reference Range Interpretation Comments Urine Bilirubin (test code = 1978-6) NEGATIVE NEGATIVE [facility] WestUrine Eqhyn6287-73-84 09:51:00* Test Item Value Reference Range Interpretation Comments Urine Blood (test code = 74466-1) NEGATIVE NEGATIVE [facility] WestCHEST SINGLE (PORTABLE)2018-06-30 09:41:00 [facility] [address] [address] Patient Name: ILIR LAWRENCE MR #: [id number] : 1930 Age/Sex: 87/M Req #: [id number] Adm Physician: Ordered by: KIRSTEN YIP MD Report #: [id number] Location: ER Room/Bed: Procedure: [id number] DX/ CHEST SINGLE (PORTABLE) Exam Date: 06/30/18 [...] 06/30/18943 COPY TO: KIRSTEN CALHOUN MD Magnesium Dxock7485-59-35 09:36:00* Test Item Value Reference Range Interpretation Comments Magnesium Level (test code = 56996-3) 1.7 1.3-2.1 [facility] CenterB-Type Natriuretic Kbflmqo7997-34-90 09:28:00* Test Item Value Reference Range Interpretation Comments B-Type Natriuretic Peptide (test code = 30447-5) 55.9 0-100 [facility] CenterLactic Acid Zpnvz1484-84-86 09:20:00* Test Item Value Reference Range Interpretation Comments Lactic Acid Level (test code = Lactic Acid Level) 14.3 4.5- 19.8 [facility] CenterProthrombin Jpld0772-31-59 09:08:00* Test Item Value Reference Range Interpretation Comments Prothrombin Time (test code = 5902-2) 14.0 11.9-14.5 [facility] CenterProthromb Time International Ratio 2018-06-30 09:08:00* Test Item Value Reference Range Interpretation Comments Prothromb Time International Ratio (test code = 6301-6) 0.99 Oral Anticoagulant Therapy INR Values:1. Low Intensity Therapy 1.5 - 2.02 . Moderate Intensity Therapy 2.0 - 3.03. High Intensity Therapy(1) 2.5 - 3. 54. High Intensity Therapy(2) 3.0 - 4.05. Panic Value INR > 5.0 [facility] CenterActivated Partial Thromboplast Time 2018-06-30 09:08:00* Test Item Value Reference Range Interpretation Comments Activated Partial Thromboplast Time (test code = 41402-6) 35.4 23.8-35.5 [facility] CenterBedside Fugwaje4485-34-87 11:31:00* Test Item Value Reference Range Interpretation Comments Bedside Glucose (test code = 67183-0) 194 70-120 H Meter ID: [id number] [facility] Centerodium Level 2018-06-27 08:29:00* Test Item Value Reference Range Interpretation Comments Sodium Level (test code = 2951-2) 139 136-145 [facility] CenterPotassium Ylogy8640-69-36 08:29:00* Test Item Value Reference Range Interpretation Comments Potassium Level (test code = 2823-3) 3.6 3.5-5.1 [facility] CenterChloride Rmktk4445-14-01 08:29:00* Test Item Value Reference Range Interpretation Comments Chloride Level (test code = 2075-0) 107 98-107 [facility] CenterCarbon Dioxide Zdcky5799-75-80 08:29:00* Test Item Value Reference Range Interpretation Comments Carbon Dioxide Level (test code = 2028-9) 22 22-29 [facility] CenterAnion Czq0259-06-71 08:29:00* Test Item Value Reference Range Interpretation Comments Anion Gap (test code = 07933-5) 13.6 8-16 [facility] CenterBlood Urea Tuarqpud4563-85-82 08:29:00* Test Item Value Reference Range Interpretation Comments Blood Urea Nitrogen (test code = 3094-0) 11 7-26 [facility] CenterCreatinine2019-02-05 08:29:00* Test Item Value Reference Range Interpretation Comments Creatinine (test code = 2160-0) 0.85 0.72-1.25 [facility] CenterBUN/Creatinine Ojqtp3621-25-68 08:29:00* Test Item Value Reference Range Interpretation Comments BUN/Creatinine Ratio (test code = 3097-3) 13 6-25 [facility] CenterEstimat Glomerular Filtration Rate 2018-06-27 08:29:00* Test Item Value Reference Range Interpretation Comments Estimat Glomerular Filtration Rate (test code = 113052019) > 60 >60 Ranges were taken from the National Kidney Disease Education Program and the [facility] literature.Reference ranges:60 or greater: Qbfanr29-57 ( for 3 consecutive months): Chronic kidney disease 15 or less: Kidney failureFort [facility] Medical CenterGlucose Ihqtp9565-88-47 08:29:00* Test Item Value Reference Range Interpretation Comments Glucose Level (test code = DBU2755) 104 74-118 [facility] CenterCalcium Yetob9886-75-15 08:29:00* Test Item Value Reference Range Interpretation Comments Calcium Level (test code = 87363-8) 8.7 8.4-10.2 [facility] CenterWhite Blood Lbpvj7093-96-71 08:10:00* Test Item Value Reference Range Interpretation Comments White Blood Count (test code = 6690-2) 10.02 4.8-10.8 [facility] CenterRed Blood Mgfzs3770-54-53 08:10:00* Test Item Value Reference Range Interpretation Comments Red Blood Count (test code = 789-8) 3.17 4.3-5.7 L [facility] CenterHemoglobin2019-02-05 08:10:00* Test Item Value Reference Range Interpretation Comments Hemoglobin (test code = 24682-1) 9.2 14.0-18.0 L [facility] CenterHematocrit2019-02-05 08:10:00* Test Item Value Reference Range Interpretation Comments Hematocrit (test code = 4544-3) 28.7 38.2-49.6 L [facility] CenterMean Corpuscular Fzdqeb8529-05-86 08:10:00* Test Item Value Reference Range Interpretation Comments Mean Corpuscular Volume (test code = 787-2) 90.5 81-99 [facility] CenterMean Corpuscular Ocrlvidbre5440-50-73 08:10:00* Test Item Value Reference Range Interpretation Comments Mean Corpuscular Hemoglobin (test code = 785-6) 29.0 28-32 [facility] CenterMean Corpuscular Hemoglobin Concent 2018-06-27 08:10:00* Test Item Value Reference Range Interpretation Comments Mean Corpuscular Hemoglobin Concent (test code = 786-4) 32.1 31-35 [facility] CenterRed Cell Distribution Ptqlw4994-85-56 08:10:00* Test Item Value Reference Range Interpretation Comments Red Cell Distribution Width (test code = 30067-3) 13.6 11.7 -14.4 [facility] CenterPlatelet Femcp4040-85-09 08:10:00* Test Item Value Reference Range Interpretation Comments Platelet Count (test code = 777-3) 396 140-360 H [facility] CenterNeutrophils (%) (Auto)2018-06-27 08:10:00 * Test Item Value Reference Range Interpretation Comments Neutrophils (%) (Auto) (test code = 25219-5) 57.2 38.7-80.0 [facility] CenterLymphocytes (%) (Auto)2018-06-27 08:10:00 * Test Item Value Reference Range Interpretation Comments Lymphocytes (%) (Auto) (test code = 736-9) 26.7 18.0-39.1 [facility] CenterMonocytes (%) (Auto)2018-06-27 08:10:00* Test Item Value Reference Range Interpretation Comments Monocytes (%) (Auto) (test code = 5905-5) 6.2 4.4-11.3 [facility] CenterEosinophils (%) (Auto)2018-06-27 08:10:00 * Test Item Value Reference Range Interpretation Comments Eosinophils (%) (Auto) (test code = 713-8) 8.6 0.0-6.0 H [facility] CenterBasophils (%) (Auto)2018-06-27 08:10:00* Test Item Value Reference Range Interpretation Comments Basophils (%) (Auto) (test code = 706-2) 0.7 0.0-1.0 [facility] CenterIM GRANULOCYTES %2018-06-27 08:10:00* Test Item Value Reference Range Interpretation Comments IM GRANULOCYTES % (test code = IM GRANULOCYTES %) 0.6 0.0- 1.0 [facility] CenterNeutrophils # (Auto)2018-06-27 08:10:00* Test Item Value Reference Range Interpretation Comments Neutrophils # (Auto) (test code = 751-8) 5.7 2.1-6.9 [facility] CenterLymphocytes # (Auto)2018-06-27 08:10:00* Test Item Value Reference Range Interpretation Comments Lymphocytes # (Auto) (test code = 03641-0) 2.7 1.0-3.2 [facility] CenterMonocytes # (Auto)2018-06-27 08:10:00* Test Item Value Reference Range Interpretation Comments Monocytes # (Auto) (test code = 742-7) 0.6 0.2-0.8 [facility] CenterEosinophils # (Auto)2018-06-27 08:10:00* Test Item Value Reference Range Interpretation Comments Eosinophils # (Auto) (test code = 711-2) 0.9 0.0-0.4 H [facility] CenterBasophils # (Auto)2018-06-27 08:10:00* Test Item Value Reference Range Interpretation Comments Basophils # (Auto) (test code = 704-7) 0.1 0.0-0.1 [facility] CenterAbsolute Immature Granulocyte (auto 2018-06-27 08:10:00* Test Item Value Reference Range Interpretation Comments Absolute Immature Granulocyte (auto (darren t code = Absolute Immature Granulocyte (auto) 0.06 0-0.1 [facility] CenterMODIFIED BA. IHHUHGD8721-15-12 13:23:00 [facility] [address] [place] [address] Patient Name: ILIR LAWRENCE MR #: [id number] : 1930 Age/Sex: 87/M Req #: [id number] Adm Physician: CONSTANTINO YUNG MD Ordered by: CONSTANTINO YUNG MD Report #: [id number] Location: MED/SURG2 Room/Bed: [facility] Procedure: [id number] DX/MO DIFIED BA. SWALLOW Exam Date: 06/26/18 Exam Time: [...] Transcribed By: ARTURO on 1326 COPY TO: CONSTANTINO YUNG MD Blood Utmrykl8942-73-37 10:57:00* Test Item Value Reference Range Interpretation Comments Blood Culture (test code = 93838727) NO GROWTH AFTER 5 DAYS, FINAL REPORT [facility] CenterVancomycin Level Vnrtaj6249-75-68 07:48:00* Test Item Value Reference Range Interpretation Comments Vancomycin Level Trough (test code = 4092-3) 13.2 5.0-10.0 HH Results repeated and called to SANGITA Valladares at 0747 on 06/25/18 by Belkis Martin. Read back and verified.[facility] CenterTotal Bilirubin 2018-06-23 06:46:00* Test Item Value Reference Range Interpretation Comments Total Bilirubin (test code = 1975-2) 0.5 0.2-1.2 [facility] CenterAspartate Amino Transf (AST/SGOT) 2018-06-23 06:46:00* Test Item Value Reference Range Interpretation Comments Aspartate Amino Transf (AST/SGOT) (test code = Aspartate Amino Transf (AST/SGOT)) 8 5-34 [facility] CenterAlanine Aminotransferase (ALT/SGPT) 2018-06-23 06:46:00* Test Item Value Reference Range Interpretation Comments Alanine Aminotransferase (ALT/SGPT) (test code = 1742-6) 7 0-55 [facility] CenterTotal Richfwk9533-69-66 06:46:00* Test Item Value Reference Range Interpretation Comments Total Protein (test code = 2885-2) 6.0 6.5-8.1 L [facility] CenterAlbumin2019-02-01 06:46:00* Test Item Value Reference Range Interpretation Comments Albumin (test code = 1751-7) 2.5 3.5-5.0 L [facility] CenterGlobulin2019-02-01 06:46:00* Test Item Value Reference Range Interpretation Comments Globulin (test code = 13063-9) 3.5 2.3-3.5 [facility] CenterAlbumin/Globulin Jimiw9049-86-50 06:46:00 * Test Item Value Reference Range Interpretation Comments Albumin/Globulin Ratio (test code = 1759-0) 0.7 0.8-2.0 L [facility] CenterAlkaline Fpnrpcxaqif1564-43-37 06:46:00* Test Item Value Reference Range Interpretation Comments Alkaline Phosphatase (test code = 6768-6) 107 40-150 [facility] CenterErythrocyte Sedimentation Rlnp3474-65-74 11:43:00* Test Item Value Reference Range Interpretation Comments Erythrocyte Sedimentation Rate (test code = 4537-7) 95 0- 13 H [facility] CenterErythrocyte Sedimentation Thrf2369-44-03 11:43:00* Test Item Value Reference Range Interpretation Comments Erythrocyte Sedimentation Rate (test code = 4537-7) 95 0- 13 H [facility] CenterHemoglobin A1c Bhvhvks9836-71-91 10:46:00 * Test Item Value Reference Range Interpretation Comments Hemoglobin A1c Percent (test code = Hemoglobin A1c Percent) 7.2 4.0-7.0 H [facility] CenterTriglycerides Arkja7034-67-44 10:46:00* Test Item Value Reference Range Interpretation Comments Triglycerides Level (test code = 2571-8) 36 0-149 [facility] CenterCholesterol Cswog0664-79-78 10:46:00* Test Item Value Reference Range Interpretation Comments Cholesterol Level (test code = 2093-3) 98 0-199 Less than 200 mg/dL Low Bfth895 - 239 mg/dL Borderline Gpma554 m g/dl and greater High Risk [facility] CenterLDL Tobvtkhtxtb0349-09-78 10:46:00* Test Item Value Reference Range Interpretation Comments LDL Cholesterol (test code = 2089-1) 42 60-130 L [facility] CenterHDL Otmbndhwelu7007-95-60 10:46:00* Test Item Value Reference Range Interpretation Comments HDL Cholesterol (test code = 2085-9) 49 40-60 [facility] CenterCholesterol/HDL Sdzyt2944-99-02 10:46:00 * Test Item Value Reference Range Interpretation Comments Cholesterol/HDL Ratio (test code = 9830-1) 2.0 3.9-4.7 L [facility] CenterHemoglobin A1c Nfpvolk8433-87-58 10:46:00 * Test Item Value Reference Range Interpretation Comments Hemoglobin A1c Percent (test code = Hemoglobin A1c Percent) 7.2 4.0-7.0 H [facility] CenterTriglycerides Uupub3633-75-20 10:46:00* Test Item Value Reference Range Interpretation Comments Triglycerides Level (test code = 2571-8) 36 0-149 [facility] CenterCholesterol Bjphu5304-28-39 10:46:00* Test Item Value Reference Range Interpretation Comments Cholesterol Level (test code = 2093-3) 98 0-199 Less than 200 mg/dL Low Oizk655 - 239 mg/dL Borderline Kyie786 m g/dl and greater High Risk [facility] CenterLDL Csrwxeexzmf2249-29-14 10:46:00* Test Item Value Reference Range Interpretation Comments LDL Cholesterol (test code = 2089-1) 42 60-130 L [facility] CenterHDL Tudzabaaehp8172-26-01 10:46:00* Test Item Value Reference Range Interpretation Comments HDL Cholesterol (test code = 2085-9) 49 40-60 [facility] CenterCholesterol/HDL Mwgbw7281-95-96 10:46:00 * Test Item Value Reference Range Interpretation Comments Cholesterol/HDL Ratio (test code = 9830-1) 2.0 3.9-4.7 L [facility] CenterCreatine Dzwdpv6339-89-05 07:06:00* Test Item Value Reference Range Interpretation Comments Creatine Kinase (test code = 2157-6) 51 30-200 [facility] CenterCreatine Kinase TD5965-44-64 07:06:00* Test Item Value Reference Range Interpretation Comments Creatine Kinase MB (test code = 90269-7) 1.20 0-5.0 [facility] CenterTroponin D4969-35-70 07:06:00* Test Item Value Reference Range Interpretation Comments Troponin I (test code = ZRQ5220) < 0.001 0-0.300 [facility] CenterUrine QLL1266-23-42 12:00:00* Test Item Value Reference Range Interpretation Comments Urine WBC (test code = 5821-4) NONE 0-5 [facility] CenterUrine YPP5708-10-33 12:00:00* Test Item Value Reference Range Interpretation Comments Urine RBC (test code = 76782-8) NONE 0-5 [facility] CenterUrine Btnhujac7983-44-21 12:00:00* Test Item Value Reference Range Interpretation Comments Urine Bacteria (test code = 34981-4) RARE NONE [facility] CenterUrine Epithelial Qwvsy6563-44-74 12:00:00 * Test Item Value Reference Range Interpretation Comments Urine Epithelial Cells (test code = 60117-9) RARE NONE [facility] CenterLactic Acid Ppttc8444-59-71 12:00:00* Test Item Value Reference Range Interpretation Comments Lactic Acid Level (test code = Lactic Acid Level) 19.0 4.5- 19.8 [facility] CenterUrine Snyam4293-73-00 11:48:00* Test Item Value Reference Range Interpretation Comments Urine Color (test code = 5778-6) YELLOW YELLOW [facility] CenterUrine Bvqyzgu3429-14-33 11:48:00* Test Item Value Reference Range Interpretation Comments Urine Clarity (test code = 32350-9) CLEAR CLEAR [facility] Specific Qqnzhws1502-72-15 11:48:00 * Test Item Value Reference Range Interpretation Comments Urine Specific [place] (test code = 5811-5) 1.030 1.010-1.02 5 H [facility] CenterUrine jL7470-37-23 11:48:00* Test Item Value Reference Range Interpretation Comments Urine pH (test code = 43698-7) 6 5-7 [facility] Leukocyte Luhxnbso4065-64-09 11:48:00* Test Item Value Reference Range Interpretation Comments Urine Leukocyte Esterase (test code = 5799-2) NEGATIVE NEGATIVE [facility] Ztgapuv3737-35-81 11:48:00* Test Item Value Reference Range Interpretation Comments Urine Nitrite (test code = 59809-8) NEGATIVE NEGATIVE [facility] Jnkpffs3889-74-85 11:48:00* Test Item Value Reference Range Interpretation Comments Urine Protein (test code = 5804-0) NEGATIVE NEGATIVE [facility] Glucose (UA)2018-06-20 11:48:00* Test Item Value Reference Range Interpretation Comments Urine Glucose (UA) (test code = 2349-9) 1+ NEGATIVE H [facility] Hqdxswa2025-16-32 11:48:00* Test Item Value Reference Range Interpretation Comments Urine Ketones (test code = 92626-7) NEGATIVE NEGATIVE [facility] Fbaltfltmrgc5785-37-12 11:48:00* Test Item Value Reference Range Interpretation Comments Urine Urobilinogen (test code = 97560-9) 0.2 0.2-1 [facility] CenterUrine Pjzitsvnb0221-46-22 11:48:00* Test Item Value Reference Range Interpretation Comments Urine Bilirubin (test code = 1978-6) NEGATIVE NEGATIVE [facility] CenterUrine Gdxbs0944-55-47 11:48:00* Test Item Value Reference Range Interpretation Comments Urine Blood (test code = 00848-6) NEGATIVE NEGATIVE [facility] CenterInfluenza Virus Types A,B Antigen 2018-06-20 11:45:00* Test Item Value Reference Range Interpretation Comments Influenza Virus Types A,B Antigen (test code = 80386-0) NEGATIVE NEGATIVE [facility] CenterInfluenza Virus Types A,B Antigen 2018-06-20 11:45:00* Test Item Value Reference Range Interpretation Comments Influenza Virus Types A,B Antigen (test code = 02726-2) NEGATIVE NEGATIVE [facility] CenterCHEST SINGLE (PORTABLE)2018-06-20 11:41:00 [facility] [address] [place] [address] Patient Name: ILIR LAWRENCE MR #: [id number] : 1930 Age/Sex: 87/M Req #: [id number] Adm Physician: Ordered by: KIRSTEN YIP MD Report #: [id number] Location: ER Room/Bed: Procedure: [id number] DX/ CHEST SINGLE (PORTABLE) Exam Date: 06/20/18 [...] COPY TO: Ulises YIP MD FOOT LEFT EGAXTBOC1759-27-83 11:40:00 [place] [address] Patient Name: ILIR LAWRENCE MR #: [id number] : 1930 Age/Sex: 87/M Req #: [id number] Adm Physician: Ordered by: KIRSTEN YIP MD Report #: [id number] Location: ER Room/Bed: Procedure: [id number] DX/ FOOT LEFT COMPLETE Exam Date: 06/20/18 [...] TO: KIRSTEN YIP MD Group A Streptococcus Lqtava1837-23-42 11:36:00* Test Item Value Reference Range Interpretation Comments Group A Streptococcus Screen (test code = 05260-7) NEGATIVE NEG ATIVE [facility] CenterGroup A Streptococcus Wduwku1815-32-78 11:36:00* Test Item Value Reference Range Interpretation Comments Group A Streptococcus Screen (test code = 04519-1) NEGATIVE NEG ATIVE [facility] CenterMagnesium Lqkwx1106-40-94 11:26:00* Test Item Value Reference Range Interpretation Comments Magnesium Level (test code = 69749-2) 1.7 1.3-2.1 [facility] CenterProthrombin Oppc8548-49-32 11:13:00* Test Item Value Reference Range Interpretation Comments Prothrombin Time (test code = 5902-2) 13.6 11.9-14.5 [facility] CenterProthromb Time International Ratio 2018-06-20 11:13:00* Test Item Value Reference Range Interpretation Comments Prothromb Time International Ratio (test code = 6301-6) 0.95 Oral Anticoagulant Therapy INR Values:1. Low Intensity Therapy 1.5 - 2.02 . Moderate Intensity Therapy 2.0 - 3.03. High Intensity Therapy(1) 2.5 - 3. 54. High Intensity Therapy(2) 3.0 - 4.05. Panic Value INR > 5.0 [facility] CenterActivated Partial Thromboplast Time 2018-06-20 11:13:00* Test Item Value Reference Range Interpretation Comments Activated Partial Thromboplast Time (test code = 48858-7) 32.4 23.8-35.5 [facility] [address] [place] [address] Patient Name: ILIR LAWRENCE MR #: [id number] : 1930 Age/Sex: 87/M Req #: [id number] Adm Physician: Ordered by: JOSIE VAZQUEZ MD Report #: [id number] Location: MRI Room/Bed: Procedure: [id number] MRI/MRI BRAIN WO Exam Date: Exam Time: [...]
[2020-04-09 20:32] VITALS: BP 130/82
== END 2020-04-09 20:34 | disposition home or self-care (01) ==
LOC: ER 18:05
DX: S01.81XA Laceration without foreign body of other part of head, initial encounter (principal); W06.XXXA Fall from bed, initial encounter; Y92.003 Bedroom of unspecified non-institutional (private) residence as the place of occurrence of the external cause; F03.90 Unspecified dementia, unspecified severity, without behavioral disturbance, psychotic disturbance, mood disturbance, and anxiety; E11.9 Type 2 diabetes mellitus without complications; I50.9 Heart failure, unspecified
CPT/HCPCS: 70450; 70486; 72125; 99283